=== PATIENT | male | born 1935 | race Caucasian/White ===

== ENCOUNTER 2018-06-08 14:06 | Inpatient (IN) ==
[2018-06-08] MEDS ORDERED: DEXTROSE 50% 50 ML VIAL IV PRN (16:21)
[2018-06-08] MEDS ORDERED: DEXTROSE 31 GM ORAL.SUSP PO PRN (16:21)
[2018-06-08] MEDS ORDERED: IPRATROPIUM/ALBUTEROL 3 ML AMPUL.NEB NEB PRN (16:21)
--- NOTE | 2018-06-08 17:09 | Internal Med History&Physical ---
Medical - H&P: [facility] Patient information: Note initiated : 06/08/18 at 5:04 pm Service Date, if different from initiated Date: [] Patient: Maria Isabel He a 82 y/o M admitted on for Fluid overload, acute kidney injury. Chief Complaint: [] History of present illness: Mr. He is a 82 year old M With chronic kidney disease stage IV obesity obstructive sleep apnea hypertension diabetes who who had been on 80 of Lasix twice daily. Stopped taking his diuretics about a week ago. Was seen by his film critic who recommended him come to the hospital for IV diuresis given his anasarca he refused at that time if no risks were explained to him. He did end up going up to his primary care facility [facility] he did get sounds like torsemide which he says "shut him down he did not urinate at all and then he was put on Lasix did not seem to have much response in the past couple days without the diuretic started urinating more per his he put out 1101-day 1100 the next day and 1400 yesterday. He did not want to come down yesterday because of he had some diarrhea which is resolved but agreed to come down today to be admitted for IV diuresis. The diarrhea is essentially resolved sounds like he has been dealing with intermittent constipation diarrhea this year, believes he may have IBS. He has some nausea he has got a chronic cough which is been dry for about 2 weeks he has some nasal congestion. But otherwise no chest pain or shortness of breath. He is very weak he typically is a cane but is been wheelchair-bound this past week. He states his dry weight is around 270 but because of the fluid accumulation he says he is around 300 pounds. He has increased swelling in his lower extremities to his scrotum and abdomen. Review of Systems: Edema to his legs scrotum and abdomen. Nausea. Diarrhea Essentially resolved denies headache/fever/chills/vomiting/chest or abdominal pain/cough/dyspnea/ constipation. Otherwise see above. Medical - H&P: [facility] Medical history: Medical History (Last Reviewed 06/02/18 @ 16:29 by Megha Martinez MD) Shortness of breath (Chronic) Fatigue (Chronic) Peripheral edema (Chronic) Chronic low back pain (Chronic) Arthritis of spine (Chronic) Obesity (Chronic) Hearing loss (Chronic) Depression (Chronic) Post-traumatic stress syndrome (Chronic) Anxiety (Chronic) Allergic rhinitis (Chronic) Gastroesophageal reflux disease (Chronic) Chronic kidney disease (Chronic) Edema (Chronic) Sleep apnea (Chronic) Orthopnea (Chronic) Heart block (Chronic) Hypertension (Chronic) Tobacco use (Chronic) CAD (coronary artery disease) (Chronic) Dysuria (Chronic) Chronic renal insufficiency (Chronic) Dyspnea (Chronic) Hydrocele (Chronic) BPH with urinary obstruction (Chronic) Diabetes mellitus type II, uncontrolled (Chronic) Chronic prostatitis (Chronic) Past Surgical History (Last Reviewed 06/02/18 @ 16:29 by Megha Martinez MD) History of hemorrhoidectomy (Chronic) History of prostate surgery (Chronic) History of shoulder surgery (Chronic) History of tonsillectomy and adenoidectomy (Chronic) History of transurethral resection of prostate (Chronic) No pertinent past surgical history (Chronic) S/P cardiac pacemaker procedure (Chronic) Status post shoulder surgery (Chronic) Family History (Last Reviewed 06/02/18 @ 16:29 by Megha Martinez MD) Other Diabetes Heart attack Hypertension No pertinent family history Social History (Last Updated 06/02/18 @ 16:38 by Megha Martinez MD) Patient quit smoking 1980 drinks alcohol rarely Ambulance with a cane but recently with walker Lives at home with his Functional capacity: uses cane/walker Medical - H&P: Meds Home Medications Medication Instructions Recorded Confirmed Type amlodipine 10 mg tablet 10 mg PO QDAY 05/19/17 06/02/18 History finasteride 5 mg tablet 5 mg PO QDAY 05/19/17 06/02/18 History Lubricating (PF) OPH OINT OPHTHALMIC 06/17/17 06/02/18 History albuterol sulfate 90 mcg/actuation 1 inh INHALATION Q6H 06/17/17 04/22/18 History breath activated powder inhaler calcium carbonate 500 mg calcium 500 mg PO Q4H PRN tab 06/17/17 06/02/18 History (1,250 mg) chewable tablet clobetasol TOPICAL BID PRN 06/17/17 06/02/18 History cyclobenzaprine 10 mg tablet 10 mg PO BID tab 06/17/17 06/02/18 History dextran 70-hypromellose eye drops 1 drp OPHTHALMIC 4-6XD PRN 06/17/17 06/02/18 History docusate sodium 100 mg capsule 100 mg PO TID cap 06/17/17 06/02/18 History glucose 4 gram chewable tablet 12 g PO ONCE PRN tab 06/17/17 06/02/18 History ketoconazole 2 % shampoo 1 applic TOPICAL .Q3W ml 06/17/17 06/02/18 History ofloxacin 0.3 % eye drops 1 drp OPHTHALMIC .QH PRN ml 06/17/17 06/02/18 History ranitidine 300 mg tablet 300 mg PO BID tab 06/17/17 06/02/18 History selenium sulfide 2.5 % shampoo 1 applic TOPICAL 3XW 06/17/17 06/02/18 History trazodone 100 mg tablet 50 mg PO QHS PRN 06/17/17 06/02/18 History fluticasone 50 mcg/actuation nasal 1 spray INTRANASAL QDAY 09/07/17 06/02/18 History spray,suspension oxycodone 5 mg tablet 5 mg PO Q4H PRN tab 09/07/17 06/02/18 History gabapentin 300 mg capsule 300 mg PO HS PRN cap 09/16/17 06/02/18 History tamsulosin 0.4 mg capsule 0.4 mg PO BID cap 09/16/17 06/02/18 History buspirone PO PRN 12/22/17 06/02/18 History bupropion HCl 100 mg tablet 100 mg PO BID PRN 04/22/18 06/02/18 History sodium bicarbonate 650 mg tablet 650 mg PO BID PRN tab 04/22/18 06/02/18 History Allergies Allergy/AdvReac Type Severity Reaction Status Date / Time NICOLAS Inhibitors Allergy Unknown Unknown Unverified 06/02/18 15:42 adhesive tape Allergy Unknown Unknown Unverified 06/02/18 15:42 atenolol Allergy Unknown Unknown Unverified 06/02/18 15:42 Cefaclor Allergy Unknown Unknown Unverified 06/02/18 15:42 clonidine Allergy Unknown Unknown Unverified 06/02/18 15:42 hydroxyzine Allergy Unknown Unknown Unverified 06/02/18 15:42 lidocaine Allergy Unknown unknown Verified 06/02/18 15:42 meperidine Allergy Unknown Unknown Unverified 06/02/18 15:42 omeprazole [From Prilosec] Allergy Unknown Unknown Unverified 06/02/18 15:42 Terazosin Allergy Unknown Unknown Unverified 06/02/18 15:42 Torsemide AdvReac Unknown unable to Verified 06/02/18 15:42 void adhesive tape Allergy Unknown Unknown Uncoded 06/02/18 15:42 animal insulin Allergy Unknown Unknown Uncoded 06/02/18 15:42 beta blockers Allergy Unknown Unknown Uncoded 06/02/18 15:42 CLASS: 24:04.02 - CALCIUM Allergy Unknown Unknown Uncoded 06/02/18 15:42 CHANNEL BLOCKING [employer]ENT Medical - H&P: Exam - Constitutional Exam: General: Alert, Awake, No acute Distress HEENT: Normocephalic atraumatic ,EOMI, CV: RRR, 1/6 SM, Pulm: Diminished bilateral bases, no wheezing/rhonchi/rales Abd: soft, nontender, +BS x4, obese Ext: no clubbing/cyanosis, 3-4+ lower extremity pitting edema. He has pitting edema up into the thighs all the way to the abdominal wall. And scrotal swelling. Neuro: Alert, no focal deficits, moves all extremities Skin: warm/dry Medical - H&P: A/P - Narrative A/P Narrative: A: *Anasarca: Medication noncompliance *Chronic kidney disease stage IV: Follows Dr. Garnett *Morbid obesity: *Diabetes: *Hypertension: *Depression/anxiety: *Chronic low back pain *BPH with a history of obstructive uropathy: P: -Case discussed with nephrology, will be following -Continue IV Bumex at this time -Strict I's and O's and daily weights -Continue home medications -Pending chemistry -Compression wraps lower extremities -Sliding scale insulin -Continue home medications -ppx: Heparin
[2018-06-08] MEDS ORDERED: BUMETANIDE 0.25 MG/ML VIAL IV ONE (17:15)
[2018-06-08] MEDS: INSULIN LISPRO 1 UNIT/0.01 ML UNIT SQ SCH ×3 (17:37→21:23)
[2018-06-08 19:12] LABS: ALT/SGPT 21 U/l (0-40); Albumin 2.6 gm/dL (3.2-5.2); Albumin/Globulin Ratio 0.7 (1.0-2.3); Alkaline Phosphatase 160 U/L (39-117); Bilirubin,Direct < 0.2 mg/dL (0.0-0.3); Blood Urea Nitrogen 54 mg/dl (8-23); Gamma Glutamyl Transpeptidase 37 U/L (8-61); Uric Acid 9.7 mg/dL (2.5-8.0)
[2018-06-08 19:51] LABS: Appearance,Urine TURBID; Bacteria,Urine MANY /hpf (0); Bilirubin,Urine NEG (NEG); Color,Urine YELLOW; Glucose,Urine (UA) 50 mg/dL (NEG); Leukocyte Esterase,Urine 500 /uL (NEG); Mucus,Urine FEW /hpf (0); Protein,Urine >=500 mg/dL (NEG); Specific Gravity,Urine 1.015 (1.000-1.035); Urine Amorphous Crystals FEW /hpf (0); Urine Blood 0.2 mg/dL (<0.03); Urine RBC 32 /hpf (0-1); Urine Squamous Epithelial Cell 0 /hpf (0-4); Urine WBC > 182 /hpf (0-4); Urobilinogen,Urine NEG (NEG)
[2018-06-08] MEDS: HEPARIN 5,000 UNIT/ML VIAL SQ SCH ×2 (20:46→21:22)
[2018-06-08] MEDS: FAMOTIDINE 20 MG TABLET PO SCH ×2 (20:46→21:23)
[2018-06-08] MEDS: TAMSULOSIN 0.4 MG CAPSULE PO SCH (21:15)
[2018-06-08] MEDS ORDERED: amLODIPine 5 MG TABLET ONE (21:20)
[2018-06-08] MEDS: 0.9 % SODIUM CHLORIDE 10 ML SYRINGE IV SCH (22:08)
[2018-06-09 05:32] LABS: Basophils # (Auto) 0 K/mcL (0.0-0.3); Basophils % (Auto) 0.1 % (0.0-2.0); Eosinophils # (Auto) 2.2 K/mcL (0.0-0.7); Eosinophils % (Auto) 15.4 % (0.0-7.0); Lymphocytes # (Auto) 0.7 K/mcL (1.5-4.8); Lymphocytes % (Auto) 4.7 % (15.5-49.0); Mean Cell Volume 91.4 fL (80.0-100.0); Mean Corpuscular HGB Conc 33.3 g/dL (31.0-36.0); Mean Corpuscular Hemoglobin 30.4 pg (26.0-34.0); Monocytes # (Auto) 0.8 K/mcL (0.1-0.9); Monocytes % (Auto) 5.8 % (1.0-12.0); Platelet Count 181 K/mcL (140-440)
[2018-06-09 06:00] LABS: ALT/SGPT 27 U/l (0-40); Albumin 2.5 gm/dL (3.2-5.2); Albumin/Globulin Ratio 0.7 (1.0-2.3); Alkaline Phosphatase 160 U/L (39-117); Bilirubin,Direct < 0.2 mg/dL (0.0-0.3); Blood Urea Nitrogen 60 mg/dl (8-23); Gamma Glutamyl Transpeptidase 36 U/L (8-61); Uric Acid 9.9 mg/dL (2.5-8.0)
--- NOTE | 2018-06-09 07:24 | Internal Med Progress Note ---
Medical - PN: Subj Patient information: Note initiated : 06/09/18 at 7:16 am Service Date, if different from initiated Date: [] Patient: Maria Isabel He 82 y/o M admitted on 06/08/18 for Fluid overload, acute kidney injury. Chief Complaint: [] Interval history: 82yoF with chronic kidney disease stage IV obesity obstructive sleep apnea hypertension diabetes who who had been on 80 of Lasix twice daily. Stopped taking his diuretics about a week ago. Was seen by his curator herbarium who recommended him come to the hospital for IV diuresis given his anasarca he refused at that time if no risks were explained to him. He did end up going up to his primary care facility [facility] he did get sounds like torsemide which he says "shut him down he did not urinate at all and then he was put on Lasix did not seem to have much response in the past couple days without the diuretic started urinating more per his he put out 1101-day 1100 the next day and 1400 yesterday. He did not want to come down yesterday because of he had some diarrhea which is resolved but agreed to come down today to be admitted for IV diuresis. The diarrhea is essentially resolved sounds like he has been dealing with intermittent constipation diarrhea this year, believes he may have IBS. He has some nausea he has got a chronic cough which is been dry for about 2 weeks he has some nasal congestion. But otherwise no chest pain or shortness of breath. He is very weak he typically is a cane but is been wheelchair-bound this past week. He states his dry weight is around 270 but because of the fluid accumulation he says he is around 300 pounds. He has increased swelling in his lower extremities to his scrotum and abdomen. 06/09 Slept poorly last night. Typically sleeps in a recliner for 15 years. With the bed last night felt was uncomfortable and developed some orthopnea with it. He has some chills and a little bit of nausea with breakfast, he has a mild cough with some clear sputum. No shortness of breath currently in his upright chair no chest pain abdominal pain. A lot of edema still in the legs to the abdomen. Intermittent diarrhea and constipation. - Constitutional Vitals: Vital Signs Temp Pulse Resp BP Pulse Ox 99.2 F H 71 24 H 130/64 90 06/09/18 04:00 06/08/18 23:38 06/09/18 04:00 06/09/18 04:00 06/09/18 04:00 Period Temp Pulse Resp BP Sys/Adkins Pulse Ox Last 24 Hr 98.1 F-99.2 F 71-86 20-26 130-155/64-90 90-93 Intake and Output 06/08/18 06/09/18 06/09/18 21:59 05:59 13:59 Intake Total 360 / 360 Output Total 120 / 120 325 / 325 Balance -120 / -120 35 / 35 Weight 139.706 kg 139.706 kg Intake & Output: Intake & Output 06/08/18 06/09/18 06/09/18 21:59 05:59 13:59 Intake Total 360 / 360 Output Total 120 / 120 325 / 325 Balance -120 / -120 35 / 35 Weight 139.706 kg 139.706 kg Intake: Oral 360 / 360 Output: Void Amount 120 / 120 325 / 325 Other: Meal Sandwhich Percent of Meal Consumed 100% Feeding Ability Independent Urine Appearance Cloudy Urine Color Dark Beatris Urine Odor Strong Stool Size Moderate Stool Color Brown Stool Consistency Liquid # Voids 1 2 # Bowel Movements 2 Exam: General: Alert, Awake, No acute Distress HEENT: Normocephalic atraumatic ,EOMI, CV: RRR, 1/6 SM, Pulm: Diminished bilateral bases, no wheezing/rhonchi/rales Abd: soft, nontender, +BS x4, obese Ext: no clubbing/cyanosis, 3-4+ lower extremity pitting edema. Pitting edema up into the thighs all the way to the abdominal wall. And scrotal swelling. Neuro: Alert, no focal deficits, moves all extremities Skin: warm/dry Medical - PN: Obj Da - Labs CBC & Chem 7: 06/09/18 03:40 06/09/18 03:40 Labs: Abnormal Lab Results 06/09/18 06/09/18 06/08/18 03:40 03:40 18:03 WBC 14.1 H RBC 3.90 L Hgb 11.9 L Hct 35.7 L RDW 15.0 H Lymph % (Auto) 4.7 L Eos % (Auto) 15.4 H Gran # 10.4 H Lymph # (Auto) 0.7 L Eos # (Auto) 2.2 H Chloride 111 H Carbon Dioxide 19 L BUN 60 H Creatinine 4.5 H Glucose 109 H Uric Acid 9.9 H Calcium 8.2 L Alkaline Phosphatase 160 H Albumin 2.5 L Albumin/Globulin Ratio 0.7 L Urine Protein >=500 A Urine Glucose (UA) 50 A Urine Occult Blood 0.2 A Ur Leukocyte Esterase 500 A Urine RBC 32 H Urine WBC > 182 H Amorphous Crystals Few A Urine Bacteria Many A 06/08/18 17:03 WBC RBC Hgb Hct RDW Lymph % (Auto) Eos % (Auto) Gran # Lymph # (Auto) Eos # (Auto) Chloride 113 H Carbon Dioxide 20 L BUN 54 H Creatinine 4.4 H Glucose 124 H Uric Acid 9.7 H Calcium 8.3 L Alkaline Phosphatase 160 H Albumin 2.6 L Albumin/Globulin Ratio 0.7 L Urine Protein Urine Glucose (UA) Urine Occult Blood Ur Leukocyte Esterase Urine RBC Urine WBC Amorphous Crystals Urine Bacteria Meds: Medications Albuterol/Ipratropium (Duoneb) 3 ml NEB Q4HRT PRN PRN Reason: Dyspnea Amlodipine Besylate (Norvasc) 10 mg PO QDAY [facility] Bumetanide (Bumex) 2 mg IV BID [facility] Dextrose (Dextrose 50%) 0 ml IV UD PRN PRN Reason: Hypoglycemia Diagnostic Test (Pha) (Accu-Chek) 1 each FS [facility] Last Admin: 06/08/18 20:40 Dose: 1 each Famotidine (Pepcid) 20 mg PO HS [facility] Last Admin: 06/08/18 21:23 Dose: Not Given Glucose (Insta-Glucose) 15 gm PO PRN PRN PRN Reason: Hypoglycemia Heparin Sodium (Porcine) (Heparin) 5,000 unit SQ Q12 [facility] Last Admin: 06/08/18 21:22 Dose: Not Given Insulin Human Lispro (Humalog) 0 unit SQ [facility]; Protocol Last Admin: 06/08/18 21:23 Dose: Not Given Sodium Chloride (Saline Flush) 10 ml IV Q8 [facility] Last Admin: 06/08/18 22:08 Dose: 10 ml Tamsulosin HCl (Flomax) 0.4 mg PO BID [facility] Last Admin: 06/08/18 21:15 Dose: 0.4 mg Medical - PN: A/P - Time Spent With Patient Total time spent is greater than 50% in coordination of care (as documented) at patient's floor/unit and/or counseling patient: - Narrative A/P Narrative: A: *Anasarca: Medication noncompliance *Chronic kidney disease stage IV: Follows Dr. Martinez *UTI poa with fever: *Morbid obesity: *Diabetes: *Hypertension: *Depression/anxiety: *Chronic low back pain *BPH with a history of obstructive uropathy: P: -Case discussed with nephrology who is following -lasix gtt per nephro, HD cath placement -bladder scan -Strict I's and O's and daily weights -Continue home medications -cipro unless cephalosporin allergy can be clarified -Compression wraps lower extremities -Sliding scale insulin -pt/ot -Continue home medications -ppx: Heparin Medical - PN: Qual - VTE Deep Vein Thrombosis/Pulmonary Embolism Present on Admission: No
[2018-06-09] MEDS: INSULIN LISPRO 1 UNIT/0.01 ML UNIT SQ SCH ×4 (07:41→21:06)
--- NOTE | 2018-06-09 08:05 | XRay Report ---
INDICATION: Fluid overload TECHNIQUE: AP chest x-ray, portable COMPARISON: None FINDINGS: Left-sided transvenous pacemaker with leads in appropriate positions for atrium and right ventricle. There is cardiomegaly. Pulmonary vascularity is mildly prominent. There are bibasilar pulmonary parenchymal infiltrates. Appearance is nonspecific. This may be due to pulmonary edema. Pneumonia is not excluded. There is probable pleural fluid. There is a focal density overlying the left side of the heart. Etiology is not certain. This may be artifactual and is probably extrathoracic. Routine PA and lateral chest x-ray is recommended when clinically appropriate. There is abnormality of the right clavicle and acromioclavicular joint. There is periosteal new bone formation as well as multiple bone fragments in the right acromioclavicular joint region. There may have been previous surgical resection or traumatic injury to the distal right clavicle. IMPRESSION: 1. Cardiomegaly 2. Bilateral, predominantly bibasilar infiltrates. Findings may be due to pulmonary edema but pneumonia is not excluded 3. Probable pleural fluid, especially on the left 4. PA and lateral chest x-ray is recommended when clinically appropriate Interpreted and Authenticated by: Julio Mccullough 06/09/18
[2018-06-09] MEDS ORDERED: METOLAZONE 2.5 MG TABLET PO ONE (08:54)
[2018-06-09] MEDS ORDERED: FUROSEMIDE 100 MG/10 ML VIAL IV ONE (08:56)
[2018-06-09] MEDS ORDERED: CIPROFLOXACIN 400 MG/200 ML BAG IV SCH (09:00)
[2018-06-09] MEDS ORDERED: FUROSEMIDE 250 MG in 0.9 % SODIUM CHLORIDE 225 ML IV SCH (09:00)
[2018-06-09] MEDS ORDERED: BUMETANIDE 0.25 MG/ML VIAL IV SCH (09:00)
[2018-06-09] MEDS: amLODIPine 10 MG TABLET PO SCH ×3 (09:45→21:42)
[2018-06-09] MEDS: HEPARIN 5,000 UNIT/ML VIAL SQ SCH ×2 (09:45→21:19)
[2018-06-09] MEDS: TAMSULOSIN 0.4 MG CAPSULE PO SCH ×3 (09:45→21:18)
[2018-06-09] MEDS: cefTRIAXone 1 GM VIAL IV SCH (10:42)
[2018-06-09] MEDS: 0.9 % SODIUM CHLORIDE 10 ML SYRINGE IV SCH ×3 (10:43→21:19)
[2018-06-09 11:14] LABS: Band Neutrophils % 3 % (0-10); Eosinophils % (Manual) 14 % (0-7); Lymphocytes % 6 % (15-49); Monocytes % (Manual) 4 % (1-12); Platelet Estimate NORMAL (NORMAL); RBC Morphology NORMAL (NORMAL); Segmented Neutrophils % 73 % (38-78)
--- NOTE | 2018-06-09 12:40 | Nephrology Consult Note ---
History of Present Illness - Reason for Consult Patient information: Note initiated : 06/09/18 at 12:36 pm Service Date, if different from initiated Date: [] Patient: Maria Isabel He 82 y/o M admitted on 06/08/18 for Fluid Overload, Acute Kidney Injury. Chief Complaint: [] Consult date: 06/09/18 chronic renal failure Requesting physician: Americo Degroot - Chief Complaint anasarca - History of Present Illness Patient is a 82 y/o white male with multiple medical issues who is admitted with anasarca Patient has been having worsening edema for the last few weeks with suboptimal response to oral diuretics, was recommended hospitalisation last week which he refused but was apparently getting IV furosemide as outpatient bid for the last few days, stopped 2 days ago as no significant improvement He denies SOB but is noted to be tachypneic and also has orthopnea he denies fever, chills but has fever here and UA with s/o UTI he has been having diarrhea as well for the last couple of weeks, c diff negative no CP, dizziness has chronic bladder outlet obstruction, has refused narayanan cath as has had difficulties with this in the past he has been reluctant to multiple interventions including earlier clinic visits , hospitalization even after explaining risk of respiratory failure, Review of Systems All systems PM: reviewed and no additional remarkable complaints except as stated (as in HPI) Past History Past medical history: DM type 2, uncontrolled HTN, uncontrolled with h/o intolerance to multiple medications CKD stage IV/V with nephrotic syndrome anemia of CKD secondary hyperparathyroidism CHF, s/p pacemaker placement, cad Sleep apnea on CPAP morbid obesity BPH with bladder outlet obstruction Past surgical history: History of prostate surgery Chronic History of shoulder surgery Chronic History of tonsillectomy and adenoidectomy Chronic History of transurethral resection of prostate Chronic History of hemorrhoidectomy Chronic S/P cardiac pacemaker procedure Chronic Status post shoulder surgery Past family history: DM type 2, HTN and cardiac issues in the family Past social history: lives with his in [place] no h/o alcohol or drug abuse, quit smoking in the past Medications and Allergies Home Medications Medication Instructions Recorded Confirmed Type amlodipine 10 mg tablet 10 mg PO QDAY 05/19/17 06/08/18 History finasteride 5 mg tablet 5 mg PO QDAY 05/19/17 06/02/18 History Lubricating (PF) OPH OINT OPHTHALMIC 06/17/17 06/02/18 History albuterol sulfate 90 mcg/actuation 1 inh INHALATION Q6H 06/17/17 04/22/18 History breath activated powder inhaler calcium carbonate 500 mg calcium 500 mg PO Q4H PRN tab 06/17/17 06/02/18 History (1,250 mg) chewable tablet clobetasol TOPICAL BID PRN 06/17/17 06/02/18 History cyclobenzaprine 10 mg tablet 10 mg PO BID tab 06/17/17 06/02/18 History dextran 70-hypromellose eye drops 1 drp OPHTHALMIC 4-6XD PRN 06/17/17 06/02/18 History docusate sodium 100 mg capsule 100 mg PO TID cap 06/17/17 06/02/18 History glucose 4 gram chewable tablet 12 g PO ONCE PRN tab 06/17/17 06/02/18 History ketoconazole 2 % shampoo 1 applic TOPICAL .Q3W ml 06/17/17 06/02/18 History ofloxacin 0.3 % eye drops 1 drp OPHTHALMIC .QH PRN ml 06/17/17 06/02/18 History ranitidine 300 mg tablet 300 mg PO BID tab 06/17/17 06/02/18 History selenium sulfide 2.5 % shampoo 1 applic TOPICAL 3XW 06/17/17 06/02/18 History trazodone 100 mg tablet 50 mg PO QHS PRN 06/17/17 06/02/18 History fluticasone 50 mcg/actuation nasal 1 spray INTRANASAL QDAY 09/07/17 06/02/18 History spray,suspension oxycodone 5 mg tablet 5 mg PO Q4H PRN tab 09/07/17 06/02/18 History gabapentin 300 mg capsule 300 mg PO HS PRN cap 09/16/17 06/02/18 History tamsulosin 0.4 mg capsule 0.4 mg PO BID cap 09/16/17 06/08/18 History buspirone PO PRN 12/22/17 06/02/18 History bupropion HCl 100 mg tablet 100 mg PO BID PRN 04/22/18 06/02/18 History sodium bicarbonate 650 mg tablet 650 mg PO BID PRN tab 04/22/18 06/02/18 History Allergies Allergy/AdvReac Type Severity Reaction Status Date / Time adhesive tape Allergy Mild Rash Verified 06/08/18 17:48 hydroxyzine Allergy Mild Rash Verified 06/09/18 09:53 omeprazole [From Prilosec] Allergy Mild Hallucinati Verified 06/09/18 09:53 ng clonidine Allergy Unknown Unknown Verified 06/09/18 09:53 Terazosin Allergy Unknown Unknown Verified 06/09/18 09:53 NICOLAS Inhibitors AdvReac Intermediate "Paradoxical Verified 06/09/18 09:53 Effect"/Blood pressure elevation Cefaclor AdvReac Intermediate "Unconcious/Passed Verified 06/09/18 09:53 Out" meperidine AdvReac Intermediate "Paradoxical Verified 06/09/18 09:53 Effect, Could feel everything" Beta-Blockers AdvReac Mild "Paradoxical Verified 06/09/18 09:53 (Beta-Adrenergic Bloc Effect"/Blood pressure elevation lidocaine AdvReac Mild Burning Verified 06/09/18 09:53 Torsemide AdvReac Mild "Unable to Verified 06/09/18 09:53 void/Shut's me off" Exam - Vital Signs Vital signs: Temp Pulse Resp BP Pulse Ox 101 F H 78 24 H 141/63 92 06/09/18 07:28 06/09/18 07:28 06/09/18 07:28 06/09/18 07:28 06/09/18 07:30 - General Appearance General appearance: appears started age, obese EENT: mucous membranes moist Neck: JVD Respiratory: wheezing, rales Cardiology: edema (has anasarca), regular rate, regular rhythm Gastrointestinal: no tenderness, no guarding Integumentary: warm and dry Neurologic: alert and oriented x3 Musculoskeletal: no erythema, no cyanosis Psychiatric: mood/affect appropriate Results - Lab Results 06/09/18 03:40 06/09/18 03:40 Most recent lab results Calcium 8.2 mg/dl (8.6-10.4) L 06/09/18 03:40 Phosphorus 3.3 mg/dL (2.7-4.5) 06/09/18 03:40 Magnesium 2.4 mg/dL (1.6-2.5) 06/09/18 03:40 Assessment and Plan (1) CKD (chronic kidney disease) stage V requiring chronic dialysis S.Creatinine is 4.5, egfr is 14ml/min per CKD EPI equation renal function near baseline but patient has significant fluid overload with probable pulmonary edema patient will be started on lasix gtt today, will given one dose of metolazone if he does not show significant response or he gets more SOB will arrange for urgent dialysis today We will have him for planned dialysis cath placement at [facility] tomorrow if case we do not see optimal response to IV diuretics, he agrees to pursue this, if his fluid status improves with stable/improving renal function we may hold off on this for now renal diet, fluid restriction monitor I/O avoid nephrotoxic medications dose meds to egfr Anasarca: as above lasix gtt, if fails initiation of HD fever, UTI, on antibiotics, culture pending has TRUONG, will obtain bladder US, if worse will request urology to follow all other issues managed by hospitalist, appreciate Dr Degroot's help will request Dr Herrera to follow the patient from tomorrow Status: Acute (2) Anasarca Status: Acute (3) UTI (urinary tract infection) Status: Acute
--- NOTE | 2018-06-09 14:51 | Ultrasound Report ---
CLINICAL INFORMATION: Renal failure. Fluid overload. History of obstructive uropathy TECHNIQUE: Grayscale and color flow Doppler spectral imaging COMPARISON: None. FINDINGS: Technically difficult examination due to patient's obesity and immobility. Examination was performed with the patient sitting in a chair. Right kidney measures 15.3 x 5.7 x 8.3 cm. Left kidney measures 12.7 x 5.6 x 6.4 cm. There are bilateral renal cysts. No solid mass. There is severe hydronephrosis bilaterally and enlarged renal pelves. No detectable calculi. No solid mass identified. Urinary bladder measures 2763 mL. Ureteral jets are not identified. There is no detectable bladder calculus or mass. Postvoid study was not performed. IMPRESSION: 1. Technically limited examination 2. Severe hydronephrosis 3. Distended urinary bladder Interpreted and Authenticated by: Julio Mccullough 06/09/18
[2018-06-09] MEDS ORDERED: buPROPion 100 MG TABLET PO PRN (18:10)
[2018-06-09] MEDS ORDERED: DEXTROSE PO PRN (18:10)
[2018-06-09] MEDS ORDERED: [UNRECOGNIZED DRUG - OTHER] PO PRN (18:10)
[2018-06-09] MEDS ORDERED: oxyCODONE HCL 5 MG TABLET PO PRN (18:10)
[2018-06-09] MEDS ORDERED: POLYVINYL ALCOHOL OPHTH DROPS 15ML BOTTLE OU PRN (18:10)
[2018-06-09] MEDS ORDERED: traZODone HCL 100 MG TABLET PO PRN (18:10)
[2018-06-09] MEDS ORDERED: SODIUM BICARBONATE 650 MG TABLET PO PRN (18:10)
[2018-06-09] MEDS ORDERED: CALCIUM CARBONATE 500 MG TAB.CHEW PO PRN (18:10)
[2018-06-09] MEDS: oxyCODONE HCL 5 MG TABLET PO PRN ×2 (18:24→22:14)
[2018-06-09] MEDS: ONDANSETRON 4 MG/2 ML VIAL IV PRN ×2 (18:25→22:15)
[2018-06-09] MEDS ORDERED: ALBUTEROL SULFATE INH PRN (19:15)
[2018-06-09 21:02] LABS: Blood Urea Nitrogen 64 mg/dl (8-23)
[2018-06-09] MEDS: DOCUSATE SODIUM 100 MG CAPSULE PO SCH (21:18)
[2018-06-09] MEDS: FAMOTIDINE 20 MG TABLET PO SCH (21:19)
[2018-06-09] MEDS: GABAPENTIN 300 MG CAPSULE PO SCH ×2 (21:19→21:36)
[2018-06-10] MEDS: oxyCODONE HCL 5 MG TABLET PO PRN ×3 (02:40→20:53)
[2018-06-10] MEDS: ONDANSETRON 4 MG/2 ML VIAL IV PRN ×3 (03:22→16:31)
[2018-06-10] MEDS: 0.9 % SODIUM CHLORIDE 10 ML SYRINGE IV SCH ×3 (05:35→20:54)
[2018-06-10 06:44] LABS: ALT/SGPT 30 U/l (0-40); Albumin 2.7 gm/dL (3.2-5.2); Albumin/Globulin Ratio 0.8 (1.0-2.3); Alkaline Phosphatase 167 U/L (39-117); Bilirubin,Direct < 0.2 mg/dL (0.0-0.3); Blood Urea Nitrogen 64 mg/dl (8-23); Gamma Glutamyl Transpeptidase 36 U/L (8-61); Uric Acid 9.3 mg/dL (2.5-8.0)
--- NOTE | 2018-06-10 07:02 | Consultation ---
DATE OF CONSULTATION: 06/09/2018 REQUESTING PHYSICIAN: Dr. Martinez. HISTORY OF PRESENT ILLNESS: The patient is an 82-year-old gentleman who I have seen in the past because of multiple medical problems. He does have BPH and states that no one can put a catheter in. There is a question of urethral stricture. He also has a hydrocele which he has had drained recently because of anasarca. It appears that they were only able to drain one side. 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 He canceled his appointment for biopsy and also a cystoscopy. He also has stage IV kidney disease, obstructive sleep apnea, hypertension, diabetes and obesity. He stopped taking diuretics a week ago and was admitted to the hospital for anasarca. He was put on Lasix and felt like he was not emptying his bladder. He had difficulty with this. Recently an ultrasound was done which showed a greater than 2500 mL bladder and bilateral hydronephrosis; this is a new finding. I have been asked to evaluate him for his urinary retention. PAST MEDICAL HISTORY: Significant for shortness of breath, chronic low back pain, arthritis, obesity, hearing loss, posttraumatic stress disorder, anxiety, edema, sleep apnea, renal insufficiency, hydrocele, BPH, and diabetes. PAST SURGICAL HISTORY: Hemorrhoidectomy, TURP in the past, plus a photovaporization of the prostate, shoulder surgery, pacemaker placement, and shoulder surgery. FAMILY HISTORY: Diabetes, heart disease, hypertension. SOCIAL HISTORY: Quit smoking in 1979, rarely drinks. CURRENT MEDICATIONS: Please see the hospital notes. ALLERGIES: NICOLAS INHIBITORS, ADHESIVE TAPE, ATENOLOL, CEFACLOR, CLONIDINE, HYDROXYZINE, LIDOCAINE, MEPERIDINE, OMEPRAZOLE, TERAZOSIN, FUROSEMIDE, BETA BLOCKERS. REVIEW OF SYSTEMS: CARDIAC: Shortness of breath. Positive coronary artery disease. EXTREMITIES: Positive edema to his legs, scrotum and abdomen. : Positive diarrhea. The rest of the review of systems is as per the hospitalist's dictation. PHYSICAL EXAMINATION: GENERAL: This is a patient in slight distress. VITAL SIGNS: As listed per nurse's notes. HEENT: Atraumatic, normocephalic. Extraocular movements are intact. NECK: Supple. Trachea is midline. HEART: Regular rhythm. LUNGS: Decreased sounds in the bases. ABDOMEN: Soft, obese. GENITOURINARY: Positive swelling of the scrotum which are wrapped in bandages. Testicles could not be palpated. Epididymi could not be palpated. Penis has 4+ edema; was able to reduce his foreskin and meatus at the end of his penis. Prostate is 40 grams; hard nodule in the middle. No extensions. Good sphincter tone. EXTREMITIES: Positive 4+ edema. NEUROLOGIC charcoal cranial nerves II-XII grossly intact. IMPRESSION: The patient with hydronephrosis secondary to urinary retention. He claims that no one can put a catheter in and because he is on Coumadin, I thought we could give this a try. I did place a filiform and follower and this went into his bladder without difficulty. I then tried a 14 [place] coude tip catheter and this was passed with some difficulty in obtaining clear urine. This was cloudy and currently he is on Rocephin. This is draining his bladder well. It did irrigate well. Therefore, I feel that we should leave the catheter in until he diureses and Nephrology and Internal Medicine will take care of this. For his increased PSA, this will need to be evaluated in the future. Also, he has a bladder mass by ultrasound in the past which will need to be addressed. His hydrocele is not causing him problems and this may be from edema. Again, after he recovers from his current condition this may be addressed. I have gone over this with the patient and his family, and they understand. I also talked to the hospitalist. I will follow up while in the hospital. JULIO CÉSAR:lou Job ID: [id number] Doc ID: [id number] Tadeo Pittman MD
--- NOTE | 2018-06-10 07:07 | Internal Med Progress Note ---
Medical - PN: Subj Patient information: Note initiated : 06/10/18 at 7:02 am Service Date, if different from initiated Date: [] Patient: Maria Isabel He 82 y/o M admitted on 06/08/18 for Fluid Overload, Acute Kidney Injury. Chief Complaint: [] Interval history: 82yoF with chronic kidney disease stage IV obesity obstructive sleep apnea hypertension diabetes who who had been on 80 of Lasix twice daily. Stopped taking his diuretics about a week ago. Was seen by his independent agent music education who recommended him come to the hospital for IV diuresis given his anasarca he refused at that time if no risks were explained to him. He did end up going up to his primary care facility [facility] he did get sounds like torsemide which he says "shut him down he did not urinate at all and then he was put on Lasix did not seem to have much response in the past couple days without the diuretic started urinating more per his he put out 1101-day 1100 the next day and 1400 yesterday. He did not want to come down yesterday because of he had some diarrhea which is resolved but agreed to come down today to be admitted for IV diuresis. The diarrhea is essentially resolved sounds like he has been dealing with intermittent constipation diarrhea this year, believes he may have IBS. He has some nausea he has got a chronic cough which is been dry for about 2 weeks he has some nasal congestion. But otherwise no chest pain or shortness of breath. He is very weak he typically is a cane but is been wheelchair-bound this past week. He states his dry weight is around 270 but because of the fluid accumulation he says he is around 300 pounds. He has increased swelling in his lower extremities to his scrotum and abdomen. 06/09 Slept poorly last night. Typically sleeps in a recliner for 15 years. With the bed last night felt was uncomfortable and developed some orthopnea with it. He has some chills and a little bit of nausea with breakfast, he has a mild cough with some clear sputum. No shortness of breath currently in his upright chair no chest pain abdominal pain. A lot of edema still in the legs to the abdomen. Intermittent diarrhea and constipation. 06/10 Little better last night. Does have some nausea and chills. Still very edematous, weak. Mild occasional cough. Review of Systems: denies headache/fever/vomiting/chest or abdominal pain/cough/diarrhea. Otherwise see above. - Constitutional Vitals: Vital Signs Temp Pulse Resp BP Pulse Ox 98.9 F 72 24 H 123/44 92 06/10/18 00:00 06/10/18 04:00 06/10/18 04:00 06/10/18 04:00 06/10/18 00:00 Period Temp Pulse Resp BP Sys/Adkins Pulse Ox Last 24 Hr 98.9 F-101 F 72-92 18-24 123-143/44-66 90-93 Intake and Output 06/09/18 06/10/18 06/10/18 21:59 05:59 13:59 Intake Total 198 / 198 560 / 560 Output Total 1600 / 1600 200 / 200 Balance -1402 / -1402 360 / 360 Weight 141.067 kg Intake & Output: Intake & Output 06/09/18 06/10/18 06/10/18 21:59 05:59 13:59 Intake Total 198 / 198 560 / 560 Output Total 1600 / 1600 200 / 200 Balance -1402 / -1402 360 / 360 Weight 141.067 kg Intake: IV 48 / 48 Lasix 250 mg In Sodium Chloride 48 / 48 0.9% 225 ml @ 10 MG/HR 10 mls/ hr IV Q24H [facility] Rx#:[id number] Oral 150 / 150 560 / 560 Output: Urine Catheter Amount 1200 / 1200 Void Amount 200 / 200 200 / 200 Emesis 200 / 200 Other: Meal Dinner Percent of Meal Consumed 25% Feeding Ability Assist with Tray Set Up Urine Appearance Cloudy Purulent Sediment Mucous Threads Small Blood Clots Uretheral (Wiseman) Cloudy Sediment Purulent Small Blood Clots Urine Color Straw Uretheral (Wiseman) Straw Urine Odor Foul Foul Uretheral (Wiseman) Foul Stool Size Moderate Stool Color Brown Stool Consistency Liquid Loose # Bowel Movements 1 # Emeses 2 Exam: General: Alert, Awake, No acute Distress HEENT: Normocephalic atraumatic ,EOMI, CV: RRR, 1/6 SM, Pulm: Diminished bilateral bases, bibase mild rales, no wheezing Abd: soft, nontender, +BS x4, obese Ext: no clubbing/cyanosis, 3-4+ lower extremity pitting edema. Pitting edema up into the thighs all the way to the abdominal wall. And scrotal swelling. Neuro: Alert, no focal deficits, moves all extremities Skin: warm/dry Medical - PN: Obj Da - Labs CBC & Chem 7: 06/10/18 04:06 06/10/18 04:06 Labs: Abnormal Lab Results 06/10/18 06/09/18 06/09/18 04:06 20:02 07:20 WBC RBC Hgb Hct RDW Lymph % (Auto) Eos % (Auto) Gran # Lymph # (Auto) Eos # (Auto) Lymphocytes % Eosinophils % (Manual) PT 17.5 H INR 1.4 H Chloride 109 H Carbon Dioxide 20 L 19 L BUN 64 H 64 H Creatinine 4.5 H 4.5 H Glucose 122 H 156 H Uric Acid 9.3 H Calcium 8.0 L 7.6 L Alkaline Phosphatase 167 H Lactate Dehydrogenase 286 H Albumin 2.7 L Albumin/Globulin Ratio 0.8 L Urine Protein Urine Glucose (UA) Urine Occult Blood Ur Leukocyte Esterase Urine RBC Urine WBC Amorphous Crystals Urine Bacteria 06/09/18 06/09/18 06/09/18 03:40 03:40 03:40 WBC 14.1 H RBC 3.90 L Hgb 11.9 L Hct 35.7 L RDW 15.0 H Lymph % (Auto) 4.7 L Eos % (Auto) 15.4 H Gran # 10.4 H Lymph # (Auto) 0.7 L Eos # (Auto) 2.2 H Lymphocytes % 6 L Eosinophils % (Manual) 14 H PT INR Chloride 111 H Carbon Dioxide 19 L BUN 60 H Creatinine 4.5 H Glucose 109 H Uric Acid 9.9 H Calcium 8.2 L Alkaline Phosphatase 160 H Lactate Dehydrogenase Albumin 2.5 L Albumin/Globulin Ratio 0.7 L Urine Protein Urine Glucose (UA) Urine Occult Blood Ur Leukocyte Esterase Urine RBC Urine WBC Amorphous Crystals Urine Bacteria 06/08/18 06/08/18 18:03 17:03 WBC RBC Hgb Hct RDW Lymph % (Auto) Eos % (Auto) Gran # Lymph # (Auto) Eos # (Auto) Lymphocytes % Eosinophils % (Manual) PT INR Chloride 113 H Carbon Dioxide 20 L BUN 54 H Creatinine 4.4 H Glucose 124 H Uric Acid 9.7 H Calcium 8.3 L Alkaline Phosphatase 160 H Lactate Dehydrogenase Albumin 2.6 L Albumin/Globulin Ratio 0.7 L Urine Protein >=500 A Urine Glucose (UA) 50 A Urine Occult Blood 0.2 A Ur Leukocyte Esterase 500 A Urine RBC 32 H Urine WBC > 182 H Amorphous Crystals Few A Urine Bacteria Many A Meds: Medications Albuterol/Ipratropium (Duoneb) 3 ml NEB Q4HRT PRN PRN Reason: Dyspnea Amlodipine Besylate (Norvasc) 10 mg PO HS [facility] Last Admin: 06/09/18 21:42 Dose: 10 mg Artificial Tears (Artificial Tears Ophth Drops) 1 gtt OU 4-6XD PRN PRN Reason: Dry Eye(s) Bupropion HCl (Wellbutrin) 100 mg PO BIDP PRN PRN Reason: ANXIETY/SEDATION Calcium Carbonate/Glycine (Tums) 500 mg PO Q4HP PRN PRN Reason: Indigestion Ceftriaxone Sodium (Rocephin) 1 gm IV Q24H [facility] Last Admin: 06/09/18 10:42 Dose: 1 gm Dextrose (Dextrose 50%) 0 ml IV UD PRN PRN Reason: Hypoglycemia Diagnostic Test (Pha) (Accu-Chek) 1 each FS ACHS [facility] Last Admin: 06/09/18 21:06 Dose: 1 each Docusate Sodium (Colace) 100 mg PO TID [facility] Last Admin: 06/09/18 21:18 Dose: Not Given Famotidine (Pepcid) 20 mg PO HS [facility] Last Admin: 06/09/18 21:19 Dose: 20 mg Finasteride (Proscar) 5 mg PO QDAY [facility] Gabapentin (Neurontin) 300 mg PO HS [facility] Last Admin: 06/09/18 21:36 Dose: Not Given Glucose (Insta-Glucose) 15 gm PO PRN PRN PRN Reason: Hypoglycemia Heparin Sodium (Porcine) (Heparin) 5,000 unit SQ Q12 [facility] Last Admin: 06/09/18 21:19 Dose: 5,000 unit Furosemide 250 mg/ Sodium (Chloride) 250 mls @ 10 mls/hr IV Q24H [facility]; Protocol Last Titration: 06/09/18 15:30 Dose: 0 mg/hr, 0 mls/hr Insulin Human Lispro (Humalog) 0 unit SQ ACHS [facility]; Protocol Last Admin: 06/09/18 21:06 Dose: Not Given Non-Formulary Medication (Fluticasone Propionate [Flonase]) 1 spray INTRANASAL QDAY [facility] Ondansetron HCl (Zofran) 4 mg IV Q4HP PRN PRN Reason: Nausea And Vomiting Last Admin: 06/10/18 03:22 Dose: 4 mg Oxycodone HCl (Roxicodone) 5 mg PO Q4HP PRN PRN Reason: pain Last Admin: 06/10/18 02:40 Dose: 5 mg Oxycodone HCl (Roxicodone) 5 mg PO Q4H PRN PRN Reason: PAIN LEVEL > 6 Albuterol Sulfate [ Proair Respiclick] 1 Inh) 1 dose INH Q6HP PRN PRN Reason: Shortness Of Breath Sodium Bicarbonate (Sodium Bicarbonate) 650 mg PO BID PRN PRN Reason: Indigestion Sodium Chloride (Saline Flush) 10 ml IV Q8 [facility] Last Admin: 06/10/18 05:35 Dose: 10 ml Tamsulosin HCl (Flomax) 0.4 mg PO BID [facility] Last Admin: 06/09/18 21:18 Dose: 0.4 mg Trazodone HCl (Desyrel) 50 mg PO HSP PRN PRN Reason: Insomnia Medical - PN: A/P - Time Spent With Patient Total time spent is greater than 50% in coordination of care (as documented) at patient's floor/unit and/or counseling patient: - Narrative A/P Narrative: A: *Anasarca: Medication noncompliance *Chronic kidney disease stage IV: Follows Dr. Martinez *UTI poa with fever (GNB): *Morbid obesity: *Diabetes: *Hypertension: *Depression/anxiety: *Chronic low back pain *BPH with a history of obstructive uropathy: *TRUONG w/hydronephrosis: s/p suprapubic cath placed by Toya (06/09) P: -Nephrology following -lasix gtt per nephro, ?DD cath placement today -Strict I's and O's and daily weights -Continue home medications -Rocephin -Compression wraps lower extremities -Sliding scale insulin -pt/ot -Continue home medications -ppx: Heparin Medical - PN: Qual - VTE Deep Vein Thrombosis/Pulmonary Embolism Present on Admission: No
[2018-06-10 07:11] LABS: Basophils # (Auto) 0 K/mcL (0.0-0.3); Basophils % (Auto) 0.1 % (0.0-2.0); Eosinophils # (Auto) 0.7 K/mcL (0.0-0.7); Eosinophils % (Auto) 4.7 % (0.0-7.0); Granulocytes % (Auto) 84.4 % (38.0-78.0); Lymphocytes % (Auto) 6.1 % (15.5-49.0); Mean Cell Volume 92.1 fL (80.0-100.0); Mean Corpuscular HGB Conc 33.2 g/dL (31.0-36.0); Mean Corpuscular Hemoglobin 30.6 pg (26.0-34.0); Monocytes # (Auto) 0.8 K/mcL (0.1-0.9); Monocytes % (Auto) 4.7 % (1.0-12.0); Platelet Count 159 K/mcL (140-440); RBC 3.89 M/mcL (4.50-5.90)
--- NOTE | 2018-06-10 07:41 | Nephrology Progress Note ---
Subjective Patient information: Note initiated : 06/10/18 at 7:38 am Maria Isabel He is an 82-year-old male with chronic kidney disease stage 4 admitted on 06/08/18. Chief Complaint: Fluid overload Principal diagnosis: Acute kidney injury on chronic kidney disease stage 4 Interval history: Worsening fluid overload Pertinent ROS: Edema Chills Shortness of breath Weakness Objective - Vital Signs Vital signs: Vital Signs Temp Pulse Resp BP BP Pulse Ox 06/10/18 04:00 72 24 H 123/44 06/10/18 00:00 98.9 F 78 23 H 131/54 92 06/09/18 20:00 99.5 F H 86 20 138/62 93 06/09/18 16:00 99.1 F H 92 H 18 138/66 90 06/09/18 15:00 100 F H 06/09/18 12:58 99.8 F H 22 143/66 93 Intake and Output 06/09/18 06/10/18 06/10/18 21:59 05:59 13:59 Intake Total 198 / 198 560 / 560 Output Total 1600 / 1600 200 / 200 Balance -1402 / -1402 360 / 360 Intake: IV 48 / 48 Lasix 250 mg In Sodium Chloride 48 / 48 0.9% 225 ml @ 10 MG/HR 10 mls/ hr IV Q24H [facility] Rx#:[id number] Oral 150 / 150 560 / 560 Output: Urine Catheter Amount 1200 / 1200 Void Amount 200 / 200 200 / 200 Emesis 200 / 200 Other: Meal Dinner Percent of Meal Consumed 25% Feeding Ability Assist with Tray Set Up Urine Appearance Cloudy Purulent Sediment Mucous Threads Small Blood Clots Uretheral (Wiseman) Cloudy Sediment Purulent Small Blood Clots Urine Color Straw Uretheral (Wiseman) Straw Urine Odor Foul Foul Uretheral (Wiseman) Foul Stool Size Moderate Stool Color Brown Stool Consistency Liquid Loose # Bowel Movements 1 # Emeses 2 Weight 311 lb Intake & Output: Intake & Output 06/09/18 06/10/18 06/10/18 21:59 05:59 13:59 Intake Total 198 / 198 560 / 560 Output Total 1600 / 1600 200 / 200 Balance -1402 / -1402 360 / 360 Weight 311 lb Intake: IV 48 / 48 Lasix 250 mg In Sodium Chloride 48 / 48 0.9% 225 ml @ 10 MG/HR 10 mls/ hr IV Q24H [facility] Rx#:[id number] Oral 150 / 150 560 / 560 Output: Urine Catheter Amount 1200 / 1200 Void Amount 200 / 200 200 / 200 Emesis 200 / 200 Other: Meal Dinner Percent of Meal Consumed 25% Feeding Ability Assist with Tray Set Up Urine Appearance Cloudy Purulent Sediment Mucous Threads Small Blood Clots Uretheral (Wiseman) Cloudy Sediment Purulent Small Blood Clots Urine Color Straw Uretheral (Wiseman) Straw Urine Odor Foul Foul Uretheral (Wiseman) Foul Stool Size Moderate Stool Color Brown Stool Consistency Liquid Loose # Bowel Movements 1 # Emeses 2 - General Appearance General appearance: chronically ill, fatigue EENT: mucous membranes moist Neck: supple Respiratory: rales Cardiology: edema Gastrointestinal: no tenderness Integumentary: warm and dry Neurologic: no focal deficit, alert and oriented x3 Musculoskeletal: no deformities Psychiatric: mood/affect appropriate, cooperative - Lab 06/10/18 04:06 06/10/18 04:06 Most recent lab results Calcium 8.0 mg/dl (8.6-10.4) L 06/10/18 04:06 Phosphorus 4.4 mg/dL (2.7-4.5) 06/10/18 04:06 Magnesium 2.5 mg/dL (1.6-2.5) 06/10/18 04:06 Assessment and Plan (1) Acute on chronic renal failure Maria Isabel He is an 82-year-old male with chronic kidney disease stage 4 admitted on 06/08/18. Acute kidney injury on chronic kidney disease stage 4, with metabolic acidosis and fluid overload associated with hydronephrosis secondary to urinary retention , present on arrival. Work up: Urinalysis on 06/08/18: Yellow, turbid, pH 5.0, SG 1.015, protein >500, occult blood 0.2, leukocyte esterase 500. Urine culture on 06/08/18: Gram negative bacillus. US Renal on 06/09/18: Severe hydronephrosis. Distended urinary bladder Treatment: Ceftriaxone 1 gram IV daily Progress: Urine output: 2200 ml reported in the past 24 hours. Creatinine 4.5 did not change in the past 24 hours. Metabolic acidosis. Fluid overload. Plan: Resume Furosemide 20 mg/hour Monitor for hemodialysis need. Avoid NSAIDs, nephrotoxic medications and IV contrast. Monitor BMP and urine output. Status: Acute Priority: High Qualifiers: Acute renal failure type: unspecified Chronic kidney disease stage: stage 4 (severe) Qualified Code(s): N17.9 - Acute kidney failure, unspecified; N18.4 - Chronic kidney disease, stage 4 (severe) (2) Fluid overload, unspecified Plan: Resume Furosemide 20 mg/hour Status: Acute Priority: High Qualifiers: Hypervolemia type: other Qualified Code(s): E87.79 - Other fluid overload (3) Metabolic acidosis Will hold Sodium Bicarbonate for now to avoid fluid retention Status: Acute Priority: Medium (4) Acute cystitis without hematuria Urine culture on 06/08/18: Gram negative bacillus Treatment: Ceftriaxone 1 gram IV daily Status: Acute Priority: Medium
[2018-06-10] MEDS ORDERED: FUROSEMIDE 250 MG in 0.9 % SODIUM CHLORIDE 225 ML IV SCH (09:00)
[2018-06-10] MEDS: FINASTERIDE 5 MG TABLET PO SCH (09:36)
[2018-06-10] MEDS: cefTRIAXone 1 GM VIAL IV SCH (09:36)
[2018-06-10] MEDS: HEPARIN 5,000 UNIT/ML VIAL SQ SCH ×3 (09:36→21:09)
[2018-06-10] MEDS: DOCUSATE SODIUM 100 MG CAPSULE PO SCH ×5 (09:37→21:08)
[2018-06-10] MEDS: TAMSULOSIN 0.4 MG CAPSULE PO SCH ×2 (09:37→21:06)
[2018-06-10] MEDS: INSULIN LISPRO 1 UNIT/0.01 ML UNIT SQ SCH ×4 (09:38→21:52)
[2018-06-10] MEDS: FLUTICASONE PROPIONATE SPRAY.NAS NS SCH (09:39)
[2018-06-10] MEDS ORDERED: METOLAZONE 2.5 MG TABLET PO ONE (15:29)
[2018-06-10] MEDS: amLODIPine 10 MG TABLET PO SCH (20:53)
[2018-06-10] MEDS: GABAPENTIN 300 MG CAPSULE PO SCH (20:54)
[2018-06-10] MEDS: FAMOTIDINE 20 MG TABLET PO SCH (20:54)
[2018-06-11] MEDS: ONDANSETRON 4 MG/2 ML VIAL IV PRN ×3 (00:51→13:33)
[2018-06-11] MEDS: oxyCODONE HCL 5 MG TABLET PO PRN ×2 (01:05→09:53)
[2018-06-11] MEDS ORDERED: FUROSEMIDE 100 MG/10 ML VIAL IV ONE (01:48)
[2018-06-11 05:17] LABS: Mean Cell Volume 93.6 fL (80.0-100.0); Mean Corpuscular HGB Conc 32.4 g/dL (31.0-36.0); Mean Corpuscular Hemoglobin 30.3 pg (26.0-34.0); Platelet Count 163 K/mcL (140-440); RBC 3.68 M/mcL (4.50-5.90); Red Cell Distribution Width 15.5 % (11.5-14.5)
[2018-06-11] MEDS: 0.9 % SODIUM CHLORIDE 10 ML SYRINGE IV SCH ×3 (05:38→20:38)
[2018-06-11 05:46] LABS: Blood Urea Nitrogen 70 mg/dl (8-23)
[2018-06-11 06:29] LABS: Eosinophils % (Manual) 10 % (0-7); Lymphocytes % 8 % (15-49); Monocytes % (Manual) 2 % (1-12); Myelocytes % 1 % (0-0); Platelet Estimate NORMAL (NORMAL); RBC Morphology NORMAL (NORMAL); Segmented Neutrophils % 79 % (38-78)
--- NOTE | 2018-06-11 06:54 | Nephrology Progress Note ---
Subjective Patient information: Note initiated : 06/11/18 at 6:52 am Maria Isabel He is an 82-year-old male with chronic kidney disease stage 4 admitted on 06/08/18. Chief Complaint: Fluid overload Principal diagnosis: Acute kidney injury on chronic kidney disease stage 4 Interval history: Worsening renal function and fluid overload Pertinent ROS: Edema Chills Shortness of breath Weakness Objective - Vital Signs Vital signs: Vital Signs Temp Pulse Pulse Resp BP BP Pulse Ox 06/11/18 06:44 99.4 F H 24 H 90 06/11/18 04:19 87 92 06/11/18 04:18 100.0 F H 84 133/63 91 06/11/18 00:35 99.4 F H 14 90 06/10/18 21:46 99.3 F H 83 94 06/10/18 20:18 82 97 06/10/18 19:54 82 117/52 94 06/10/18 16:32 90 129/74 91 06/10/18 16:19 79 124/52 93 06/10/18 16:00 99.3 F H 78 20 124/52 93 06/10/18 11:56 99.6 F H 78 20 115/51 94 06/10/18 11:51 76 115/51 93 06/10/18 08:35 126/68 06/10/18 08:00 102.3 F H 18 126/68 95 Intake and Output 06/10/18 06/11/18 06/11/18 21:59 05:59 13:59 Intake Total 660 / 660 730 / 730 Output Total 300 / 300 230 / 230 Balance 360 / 360 500 / 500 Intake: IV 250 / 250 Lasix 250 mg In Sodium Chloride 250 / 250 0.9% 225 ml @ 20 MG/HR 20 mls/ hr IV Q24H [facility] Rx#:[id number] Oral 660 / 660 GI Tube Flush 480 / 480 Output: Urine Catheter Amount 300 / 300 230 / 230 Other: Urine Appearance Cloudy Cloudy Sediment Uretheral (Wiseman) Cloudy Urine Color Dark Yellow Dark Yellow Straw Uretheral (Wiseman) Pale Weight 310 lb 14.4 oz Patient Weight 06/12/18 05:59 Weight 310 lb 14.4 oz Intake & Output: Intake & Output 06/10/18 06/11/18 06/11/18 21:59 05:59 13:59 Intake Total 660 / 660 730 / 730 Output Total 300 / 300 230 / 230 Balance 360 / 360 500 / 500 Weight 310 lb 14.4 oz Intake: IV 250 / 250 Lasix 250 mg In Sodium Chloride 250 / 250 0.9% 225 ml @ 20 MG/HR 20 mls/ hr IV Q24H [facility] Rx#:[id number] Oral 660 / 660 GI Tube Flush 480 / 480 Output: Urine Catheter Amount 300 / 300 230 / 230 Other: Urine Appearance Cloudy Cloudy Sediment Uretheral (Wiseman) Cloudy Urine Color Dark Yellow Dark Yellow Straw Uretheral (Wiseman) Pale - General Appearance General appearance: chronically ill, fatigue EENT: mucous membranes moist Neck: JVD Respiratory: rales Cardiology: edema Gastrointestinal: no tenderness Integumentary: chronic venous stasis Neurologic: no focal deficit, alert and oriented x3 Musculoskeletal: no deformities Psychiatric: mood/affect appropriate, cooperative - Lab 06/11/18 04:10 06/11/18 04:10 Most recent lab results Calcium 8.3 mg/dl (8.6-10.4) L 06/11/18 04:10 Phosphorus 4.4 mg/dL (2.7-4.5) 06/10/18 04:06 Magnesium 2.5 mg/dL (1.6-2.5) 06/10/18 04:06 Assessment and Plan (1) Acute on chronic renal failure Maria Isabel He is an 82-year-old male with chronic kidney disease stage 4 admitted on 06/08/18. Acute kidney injury on chronic kidney disease stage 4, with metabolic acidosis and fluid overload associated with hydronephrosis secondary to urinary retention , suspected progression to end stage renal disease, present on arrival. Work up: Urinalysis on 06/08/18: Yellow, turbid, pH 5.0, SG 1.015, protein >500, occult blood 0.2, leukocyte esterase 500. Urine culture on 06/08/18: Gram negative bacillus. US Renal on 06/09/18: Severe hydronephrosis. Distended urinary bladder Progress: Urine output: 930 ml reported in the past 24 hours. Serum creatinine increased from 4.5 to 5.3 in the past 24 hours. Metabolic acidosis. Hyperkalemia. Fluid overload. Discussion: Renal function and fluid overload worsening despite Wiseman catheter and diuresis attempt in the past 24 hours. Acute hemodialysis indicated for worsening uremia (eGFR down to 9), fluid overload, metabolic acidosis and hyperkalemia. I discussed risks and benefits of hemodialysis with the patient and his . Plan: Acute hemodialysis after hemodialysis catheter placement at [facility] today. NPO until procedure. Hemodialysis with Revaclear 300 dialyzer for 2.5 hours, QB/QD 250/500, dialysate (Potassium 2, Bicarbonate 36, Calcium 2.5, Sodium 140), UF target 2000 ml, Heparin 1000 unit bolus. Avoid NSAIDs, nephrotoxic medications and IV contrast. Monitor BMP and urine output. ADDENDUM at 16:40: Progress: Tunneled right IJ hemodialysis catheter placed at [facility] today. The patient seen and evaluated during hemodialysis. Next hemodialysis tomorrow. Status: Acute Priority: High Qualifiers: Acute renal failure type: unspecified Chronic kidney disease stage: stage 4 (severe) Qualified Code(s): N17.9 - Acute kidney failure, unspecified; N18.4 - Chronic kidney disease, stage 4 (severe) (2) Fluid overload, unspecified Plan: Resume Furosemide 20 mg/hour Status: Acute Priority: High Qualifiers: Hypervolemia type: other Qualified Code(s): E87.79 - Other fluid overload (3) Metabolic acidosis Will hold Sodium Bicarbonate for now to avoid fluid retention Status: Acute Priority: Medium (4) Acute cystitis without hematuria Urine culture on 06/08/18: Gram negative bacillus Treatment: Ceftriaxone 1 gram IV daily Status: Acute Priority: Medium
--- NOTE | 2018-06-11 07:08 | Internal Med Progress Note ---
Medical - PN: Subj Patient information: Note initiated : 06/11/18 at 7:04 am Service Date, if different from initiated Date: [] Patient: Maria Isabel He 82 y/o M admitted on 06/08/18 for Fluid Overload, Acute Kidney Injury. Chief Complaint: [] Interval history: 82yoF with chronic kidney disease stage IV obesity obstructive sleep apnea hypertension diabetes who who had been on 80 of Lasix twice daily. Stopped taking his diuretics about a week ago. Was seen by his major gifts officer who recommended him come to the hospital for IV diuresis given his anasarca he refused at that time if no risks were explained to him. He did end up going up to his primary care facility [facility] he did get sounds like torsemide which he says "shut him down he did not urinate at all and then he was put on Lasix did not seem to have much response in the past couple days without the diuretic started urinating more per his he put out 1101-day 1100 the next day and 1400 yesterday. He did not want to come down yesterday because of he had some diarrhea which is resolved but agreed to come down today to be admitted for IV diuresis. The diarrhea is essentially resolved sounds like he has been dealing with intermittent constipation diarrhea this year, believes he may have IBS. He has some nausea he has got a chronic cough which is been dry for about 2 weeks he has some nasal congestion. But otherwise no chest pain or shortness of breath. He is very weak he typically is a cane but is been wheelchair-bound this past week. He states his dry weight is around 270 but because of the fluid accumulation he says he is around 300 pounds. He has increased swelling in his lower extremities to his scrotum and abdomen. 06/09 Slept poorly last night. Typically sleeps in a recliner for 15 years. With the bed last night felt was uncomfortable and developed some orthopnea with it. He has some chills and a little bit of nausea with breakfast, he has a mild cough with some clear sputum. No shortness of breath currently in his upright chair no chest pain abdominal pain. A lot of edema still in the legs to the abdomen. Intermittent diarrhea and constipation. 06/10 Little better last night. Does have some nausea and chills. Still very edematous, weak. Mild occasional cough. 06/11 Occasional headache, some shortness of breath. Continued edema. Review of Systems: denies fever/chills/nausea/vomiting/chest or abdominal pain/cough/diarrhea. Otherwise see above. - Constitutional Vitals: Vital Signs Temp Pulse Resp BP Pulse Ox 99.4 F H 87 24 H 133/63 90 06/11/18 06:44 06/11/18 04:19 06/11/18 06:44 06/11/18 04:18 06/11/18 06:44 Period Temp Pulse Resp BP Sys/Adkins Pulse Ox Last 24 Hr 99.3 F-102.3 F 76-90 14-24 115-133/51-74 90-97 Intake and Output 06/10/18 06/11/18 06/11/18 21:59 05:59 13:59 Intake Total 660 / 660 730 / 730 Output Total 300 / 300 230 / 230 Balance 360 / 360 500 / 500 Weight 141.022 kg Patient Weight 06/12/18 05:59 Weight 141.022 kg Intake & Output: Intake & Output 06/10/18 06/11/18 06/11/18 21:59 05:59 13:59 Intake Total 660 / 660 730 / 730 Output Total 300 / 300 230 / 230 Balance 360 / 360 500 / 500 Weight 141.022 kg Intake: IV 250 / 250 Lasix 250 mg In Sodium Chloride 250 / 250 0.9% 225 ml @ 20 MG/HR 20 mls/ hr IV Q24H [facility] Rx#:[id number] Oral 660 / 660 GI Tube Flush 480 / 480 Output: Urine Catheter Amount 300 / 300 230 / 230 Other: Urine Appearance Cloudy Cloudy Sediment Uretheral (Wiseman) Cloudy Urine Color Dark Yellow Dark Yellow Straw Uretheral (Wiseman) Pale Exam: General: Alert, Awake, No acute Distress HEENT: Normocephalic atraumatic ,EOMI, CV: RRR, 1/6 SM, Pulm: Diminished bilateral bases, mild bibase rales, no wheezing Abd: soft, nontender, +BS x4, obese Ext: no clubbing/cyanosis, 3-4+ lower extremity pitting edema. Pitting edema up into the thighs all the way to the abdominal wall. And scrotal swelling. Neuro: Alert, no focal deficits, moves all extremities Skin: warm/dry Medical - PN: Obj Da - Labs CBC & Chem 7: 06/11/18 04:10 06/11/18 04:10 Labs: Abnormal Lab Results 06/11/18 06/11/18 06/10/18 04:10 04:10 04:06 WBC 13.5 H RBC 3.68 L Hgb 11.1 L Hct 34.5 L RDW 15.5 H MPV Gran % Lymph % (Auto) Eos % (Auto) Gran # Lymph # (Auto) Eos # (Auto) Seg Neutrophils % 79 H Lymphocytes % 8 L Eosinophils % (Manual) 10 H Myelocytes % 1 H PT INR Potassium 5.2 H Chloride Carbon Dioxide 20 L 20 L BUN 70 H 64 H Creatinine 5.3 H* 4.5 H Glucose 117 H 122 H Uric Acid 9.3 H Calcium 8.3 L 8.0 L Alkaline Phosphatase 167 H Lactate Dehydrogenase 286 H Albumin 2.7 L Albumin/Globulin Ratio 0.8 L Urine Protein Urine Glucose (UA) Urine Occult Blood Ur Leukocyte Esterase Urine RBC Urine WBC Amorphous Crystals Urine Bacteria 06/10/18 06/09/18 06/09/18 04:06 20:02 07:20 WBC 15.9 H RBC 3.89 L Hgb 11.9 L Hct 35.9 L RDW 15.0 H MPV 10.5 H Gran % 84.4 H Lymph % (Auto) 6.1 L Eos % (Auto) Gran # 13.5 H Lymph # (Auto) 1.0 L Eos # (Auto) Seg Neutrophils % Lymphocytes % Eosinophils % (Manual) Myelocytes % PT 17.5 H INR 1.4 H Potassium Chloride 109 H Carbon Dioxide 19 L BUN 64 H Creatinine 4.5 H Glucose 156 H Uric Acid Calcium 7.6 L Alkaline Phosphatase Lactate Dehydrogenase Albumin Albumin/Globulin Ratio Urine Protein Urine Glucose (UA) Urine Occult Blood Ur Leukocyte Esterase Urine RBC Urine WBC Amorphous Crystals Urine Bacteria 06/09/18 06/09/18 06/09/18 03:40 03:40 03:40 WBC 14.1 H RBC 3.90 L Hgb 11.9 L Hct 35.7 L RDW 15.0 H MPV Gran % Lymph % (Auto) 4.7 L Eos % (Auto) 15.4 H Gran # 10.4 H Lymph # (Auto) 0.7 L Eos # (Auto) 2.2 H Seg Neutrophils % Lymphocytes % 6 L Eosinophils % (Manual) 14 H Myelocytes % PT INR Potassium Chloride 111 H Carbon Dioxide 19 L BUN 60 H Creatinine 4.5 H Glucose 109 H Uric Acid 9.9 H Calcium 8.2 L Alkaline Phosphatase 160 H Lactate Dehydrogenase Albumin 2.5 L Albumin/Globulin Ratio 0.7 L Urine Protein Urine Glucose (UA) Urine Occult Blood Ur Leukocyte Esterase Urine RBC Urine WBC Amorphous Crystals Urine Bacteria 06/08/18 06/08/18 18:03 17:03 WBC RBC Hgb Hct RDW MPV Gran % Lymph % (Auto) Eos % (Auto) Gran # Lymph # (Auto) Eos # (Auto) Seg Neutrophils % Lymphocytes % Eosinophils % (Manual) Myelocytes % PT INR Potassium Chloride 113 H Carbon Dioxide 20 L BUN 54 H Creatinine 4.4 H Glucose 124 H Uric Acid 9.7 H Calcium 8.3 L Alkaline Phosphatase 160 H Lactate Dehydrogenase Albumin 2.6 L Albumin/Globulin Ratio 0.7 L Urine Protein >=500 A Urine Glucose (UA) 50 A Urine Occult Blood 0.2 A Ur Leukocyte Esterase 500 A Urine RBC 32 H Urine WBC > 182 H Amorphous Crystals Few A Urine Bacteria Many A Meds: Medications Albuterol/Ipratropium (Duoneb) 3 ml NEB Q4HRT PRN PRN Reason: Dyspnea Amlodipine Besylate (Norvasc) 10 mg PO [facility] Last Admin: 06/10/18 20:53 Dose: 10 mg Artificial Tears (Artificial Tears Ophth Drops) 1 gtt OU 4-6XD PRN PRN Reason: Dry Eye(s) Bupropion HCl (Wellbutrin) 100 mg PO BIDP PRN PRN Reason: ANXIETY/SEDATION Calcium Carbonate/Glycine (Tums) 500 mg PO Q4HP PRN PRN Reason: Indigestion Ceftriaxone Sodium (Rocephin) 1 gm IV Q24H [facility] Last Admin: 06/10/18 09:36 Dose: 1 gm Dextrose (Dextrose 50%) 0 ml IV UD PRN PRN Reason: Hypoglycemia Diagnostic Test (Pha) (Accu-Chek) 1 each FS ACHS [facility] Last Admin: 06/10/18 21:00 Dose: 1 each Docusate Sodium (Colace) 100 mg PO TID [facility] Last Admin: 06/10/18 21:08 Dose: Not Given Famotidine (Pepcid) 20 mg PO HS [facility] Last Admin: 06/10/18 20:54 Dose: 20 mg Finasteride (Proscar) 5 mg PO QDAY [facility] Last Admin: 06/10/18 09:36 Dose: 5 mg Fluticasone Propionate (Flonase) 1 spray NS DAILY [facility] Last Admin: 06/10/18 09:39 Dose: Not Given Gabapentin (Neurontin) 300 mg PO HS [facility] Last Admin: 06/10/18 20:54 Dose: 300 mg Glucose (Insta-Glucose) 15 gm PO PRN PRN PRN Reason: Hypoglycemia Insulin Human Lispro (Humalog) 0 unit SQ ACHS [facility]; Protocol Last Admin: 06/10/18 21:52 Dose: Not Given Ondansetron HCl (Zofran) 4 mg IV Q4HP PRN PRN Reason: Nausea And Vomiting Last Admin: 06/11/18 00:51 Dose: 4 mg Oxycodone HCl (Roxicodone) 5 mg PO Q4HP PRN PRN Reason: pain Last Admin: 06/11/18 01:05 Dose: 5 mg Oxycodone HCl (Roxicodone) 5 mg PO Q4H PRN PRN Reason: PAIN LEVEL > 6 Albuterol Sulfate [ Proair Respiclick] 1 Inh) 1 dose INH Q6HP PRN PRN Reason: Shortness Of Breath Sodium Bicarbonate (Sodium Bicarbonate) 650 mg PO BID PRN PRN Reason: Indigestion Sodium Chloride (Saline Flush) 10 ml IV Q8 [facility] Last Admin: 06/11/18 05:38 Dose: Not Given Tamsulosin HCl (Flomax) 0.4 mg PO BID [facility] Last Admin: 06/10/18 21:06 Dose: 0.4 mg Trazodone HCl (Desyrel) 50 mg PO HSP PRN PRN Reason: Insomnia Medical - PN: A/P - Time Spent With Patient Total time spent is greater than 50% in coordination of care (as documented) at patient's floor/unit and/or counseling patient: - Narrative A/P Narrative: A: *Anasarca: Medication noncompliance -unresponsive to lasix gtt *PAUL on CKD IV: Follows Dr. Martinez -Cr 5.3<4.5 *UTI poa with fever (E. coli): *Acute respiratory failure: 2/2 volume overload -on 2-3L NC *Morbid obesity: *Diabetes: *Hypertension: *Depression/anxiety: *Chronic low back pain *BPH with a history of obstructive uropathy: *TRUONG w/hydronephrosis: s/p suprapubic cath placed by Toya (06/09) P: -Nephrology following -lasix gtt per nephromichelle HD cath placement today and HD per Nephro -Strict I's and O's and daily weights -Continue home medications -Rocephin -Compression wraps lower extremities -Sliding scale insulin -pt/ot -Continue home medications -ppx: Heparin Medical - PN: Qual - VTE Deep Vein Thrombosis/Pulmonary Embolism Present on Admission: No
[2018-06-11] MEDS: FLUTICASONE PROPIONATE SPRAY.NAS NS SCH (08:37)
[2018-06-11] MEDS: FINASTERIDE 5 MG TABLET PO SCH (08:37)
[2018-06-11] MEDS: TAMSULOSIN 0.4 MG CAPSULE PO SCH ×2 (08:37→20:40)
[2018-06-11] MEDS: DOCUSATE SODIUM 100 MG CAPSULE PO SCH ×3 (08:37→20:38)
[2018-06-11] MEDS: cefTRIAXone 1 GM VIAL IV SCH (08:37)
[2018-06-11] MEDS: INSULIN LISPRO 1 UNIT/0.01 ML UNIT SQ SCH ×4 (09:14→20:37)
[2018-06-11] MEDS: amLODIPine 10 MG TABLET PO SCH (20:38)
[2018-06-11] MEDS: FAMOTIDINE 20 MG TABLET PO SCH (20:38)
[2018-06-11] MEDS: GABAPENTIN 300 MG CAPSULE PO SCH (20:40)
[2018-06-12] MEDS: oxyCODONE HCL 5 MG TABLET PO PRN ×2 (01:25→21:03)
[2018-06-12 06:15] LABS: Basophils # (Auto) 0 K/mcL (0.0-0.3); Basophils % (Auto) 0.2 % (0.0-2.0); Eosinophils # (Auto) 1.5 K/mcL (0.0-0.7); Eosinophils % (Auto) 15.9 % (0.0-7.0); Granulocytes % (Auto) 69.1 % (38.0-78.0); Lymphocytes # (Auto) 0.7 K/mcL (1.5-4.8); Lymphocytes % (Auto) 7.2 % (15.5-49.0); Mean Cell Volume 92.6 fL (80.0-100.0); Mean Corpuscular Hemoglobin 30.6 pg (26.0-34.0); Monocytes # (Auto) 0.7 K/mcL (0.1-0.9); Monocytes % (Auto) 7.6 % (1.0-12.0); Platelet Count 154 K/mcL (140-440); RBC 3.54 M/mcL (4.50-5.90); Red Cell Distribution Width 14.9 % (11.5-14.5)
[2018-06-12 06:17] LABS: Blood Urea Nitrogen 57 mg/dl (8-23)
--- NOTE | 2018-06-12 06:57 | Internal Med Progress Note ---
Medical - PN: Subj Patient information: Note initiated : 06/12/18 at 6:54 am Service Date, if different from initiated Date: [] Patient: Maria Isabel He 82 y/o M admitted on 06/08/18 for Fluid Overload, Acute Kidney Injury. Chief Complaint: [] Interval history: 82yoF with chronic kidney disease stage IV obesity obstructive sleep apnea hypertension diabetes who who had been on 80 of Lasix twice daily. Stopped taking his diuretics about a week ago. Was seen by his glass mould cleaner who recommended him come to the hospital for IV diuresis given his anasarca he refused at that time if no risks were explained to him. He did end up going up to his primary care facility [facility] he did get sounds like torsemide which he says "shut him down he did not urinate at all and then he was put on Lasix did not seem to have much response in the past couple days without the diuretic started urinating more per his he put out 1101-day 1100 the next day and 1400 yesterday. He did not want to come down yesterday because of he had some diarrhea which is resolved but agreed to come down today to be admitted for IV diuresis. The diarrhea is essentially resolved sounds like he has been dealing with intermittent constipation diarrhea this year, believes he may have IBS. He has some nausea he has got a chronic cough which is been dry for about 2 weeks he has some nasal congestion. But otherwise no chest pain or shortness of breath. He is very weak he typically is a cane but is been wheelchair-bound this past week. He states his dry weight is around 270 but because of the fluid accumulation he says he is around 300 pounds. He has increased swelling in his lower extremities to his scrotum and abdomen. 06/09 Slept poorly last night. Typically sleeps in a recliner for 15 years. With the bed last night felt was uncomfortable and developed some orthopnea with it. He has some chills and a little bit of nausea with breakfast, he has a mild cough with some clear sputum. No shortness of breath currently in his upright chair no chest pain abdominal pain. A lot of edema still in the legs to the abdomen. Intermittent diarrhea and constipation. 06/10 Little better last night. Does have some nausea and chills. Still very edematous, weak. Mild occasional cough. 06/11 Occasional headache, some shortness of breath. Continued edema. 06/12 CO2 retention last night on pt's as pt noncompliant with his own cpap, changed to our machine for auto-pressures but still was taking it off. HD yesterday with 2L's removed. no new complaints, pt will "to try" bipap for short period of time. no new complaints, denies dyspnea currently, occasional cough. Review of Systems: denies headache/fever/chills/vomiting/chest or abdominal pain/diarrhea. Otherwise see above. - Constitutional Vitals: Vital Signs Temp Pulse Resp BP Pulse Ox 99.8 F H 82 24 H 117/52 94 06/12/18 06:36 06/12/18 03:45 06/12/18 06:36 06/12/18 06:36 06/12/18 06:36 Period Temp Pulse Resp BP Sys/Adkins Pulse Ox Last 24 Hr 98.6 F-99.9 F 65-86 16-24 116-150/45-87 82-95 Intake and Output 06/11/18 06/12/18 06/12/18 21:59 05:59 13:59 Output Total 1999 120 / 120 Balance -2000 / -2000 -120 / -120 Weight 139.253 kg Intake & Output: Intake & Output 06/11/18 06/12/18 06/12/18 21:59 05:59 13:59 Output Total 1999 120 / 120 Balance -1999 / -2000 -120 / -120 Weight 139.253 kg Output: Urine Catheter Amount 120 / 120 Hemodialysis UF 1999 Other: Urine Appearance Uretheral (Wiseman) Sediment Urine Color Dark Yellow Uretheral ([facility]) Bright Yellow Exam: General: Alert, Awake, No acute Distress HEENT: EOMI, CV: RRR, 1/6 SM, Pulm: Diminished bilateral bases, minimal bibase rales, no wheezing Abd: soft, nontender, +BS x4, obese Ext: no clubbing/cyanosis, 3-4+ lower extremity pitting edema. Pitting edema up into the thighs all the way to the abdominal wall. And scrotal swelling. Neuro: Alert, no focal deficits, moves all extremities Skin: warm/dry Medical - PN: Obj Da - Labs CBC & Chem 7: 06/12/18 03:42 06/12/18 03:42 Labs: Abnormal Lab Results 06/12/18 06/12/18 06/11/18 03:42 03:42 10:03 WBC RBC 3.54 L Hgb 10.8 L Hct 32.7 L RDW 14.9 H MPV Gran % Lymph % (Auto) 7.2 L Eos % (Auto) 15.9 H Gran # Lymph # (Auto) 0.7 L Eos # (Auto) 1.5 H Seg Neutrophils % Lymphocytes % Eosinophils % (Manual) Myelocytes % POC PT 17.4 H PT POC INR 1.5 H INR Potassium Chloride Carbon Dioxide BUN 57 H Creatinine 5.0 H Glucose 110 H Uric Acid Calcium 7.8 L Alkaline Phosphatase Lactate Dehydrogenase Albumin Albumin/Globulin Ratio 06/11/18 06/11/18 06/10/18 04:10 04:10 04:06 WBC 13.5 H RBC 3.68 L Hgb 11.1 L Hct 34.5 L RDW 15.5 H MPV Gran % Lymph % (Auto) Eos % (Auto) Gran # Lymph # (Auto) Eos # (Auto) Seg Neutrophils % 79 H Lymphocytes % 8 L Eosinophils % (Manual) 10 H Myelocytes % 1 H POC PT PT POC INR INR Potassium 5.2 H Chloride Carbon Dioxide 20 L 20 L BUN 70 H 64 H Creatinine 5.3 H* 4.5 H Glucose 117 H 122 H Uric Acid 9.3 H Calcium 8.3 L 8.0 L Alkaline Phosphatase 167 H Lactate Dehydrogenase 286 H Albumin 2.7 L Albumin/Globulin Ratio 0.8 L 06/10/18 06/09/18 06/09/18 04:06 20:02 07:20 WBC 15.9 H RBC 3.89 L Hgb 11.9 L Hct 35.9 L RDW 15.0 H MPV 10.5 H Gran % 84.4 H Lymph % (Auto) 6.1 L Eos % (Auto) Gran # 13.5 H Lymph # (Auto) 1.0 L Eos # (Auto) Seg Neutrophils % Lymphocytes % Eosinophils % (Manual) Myelocytes % POC PT PT 17.5 H POC INR INR 1.4 H Potassium Chloride 109 H Carbon Dioxide 19 L BUN 64 H Creatinine 4.5 H Glucose 156 H Uric Acid Calcium 7.6 L Alkaline Phosphatase Lactate Dehydrogenase Albumin Albumin/Globulin Ratio 06/09/18 03:40 WBC RBC Hgb Hct RDW MPV Gran % Lymph % (Auto) Eos % (Auto) Gran # Lymph # (Auto) Eos # (Auto) Seg Neutrophils % Lymphocytes % 6 L Eosinophils % (Manual) 14 H Myelocytes % POC PT PT POC INR INR Potassium Chloride Carbon Dioxide BUN Creatinine Glucose Uric Acid Calcium Alkaline Phosphatase Lactate Dehydrogenase Albumin Albumin/Globulin Ratio Meds: Medications Albuterol/Ipratropium (Duoneb) 3 ml NEB Q4HRT PRN PRN Reason: Dyspnea Amlodipine Besylate (Norvasc) 10 mg PO HS [facility] Last Admin: 06/11/18 20:38 Dose: 10 mg Artificial Tears (Artificial Tears Ophth Drops) 1 gtt OU 4-6XD PRN PRN Reason: Dry Eye(s) Bupropion HCl (Wellbutrin) 100 mg PO BIDP PRN PRN Reason: ANXIETY/SEDATION Calcium Carbonate/Glycine (Tums) 500 mg PO Q4HP PRN PRN Reason: Indigestion Ceftriaxone Sodium (Rocephin) 1 gm IV Q24H [facility] Last Admin: 06/11/18 08:37 Dose: 1 gm Dextrose (Dextrose 50%) 0 ml IV UD PRN PRN Reason: Hypoglycemia Diagnostic Test (Pha) (Accu-Chek) 1 each FS [facility] Last Admin: 06/11/18 20:37 Dose: 1 each Docusate Sodium (Colace) 100 mg PO TID [facility] Last Admin: 06/11/18 20:38 Dose: 100 mg Famotidine (Pepcid) 20 mg PO [facility] Last Admin: 06/11/18 20:38 Dose: 20 mg Finasteride (Proscar) 5 mg PO QDAY [facility] Last Admin: 06/11/18 08:37 Dose: Not Given Fluticasone Propionate (Flonase) 1 spray NS DAILY [facility] Last Admin: 06/11/18 08:37 Dose: Not Given Gabapentin (Neurontin) 300 mg PO [facility] Last Admin: 06/11/18 20:40 Dose: Not Given Glucose (Insta-Glucose) 15 gm PO PRN PRN PRN Reason: Hypoglycemia Insulin Human Lispro (Humalog) 0 unit SQ [facility]; Protocol Last Admin: 06/11/18 20:37 Dose: Not Given Ondansetron HCl (Zofran) 4 mg IV Q4HP PRN PRN Reason: Nausea And Vomiting Last Admin: 06/11/18 13:33 Dose: 4 mg Oxycodone HCl (Roxicodone) 5 mg PO Q4HP PRN PRN Reason: pain Last Admin: 06/12/18 01:25 Dose: 5 mg Oxycodone HCl (Roxicodone) 5 mg PO Q4H PRN PRN Reason: PAIN LEVEL > 6 Albuterol Sulfate [ Proair Respiclick] 1 Inh) 1 dose INH Q6HP PRN PRN Reason: Shortness Of Breath Sodium Bicarbonate (Sodium Bicarbonate) 650 mg PO BID PRN PRN Reason: Indigestion Sodium Chloride (Saline Flush) 10 ml IV Q8 [facility] Last Admin: 06/11/18 20:38 Dose: 10 ml Tamsulosin HCl (Flomax) 0.4 mg PO BID [facility] Last Admin: 06/11/18 08:37 Dose: Not Given Trazodone HCl (Desyrel) 50 mg PO HSP PRN PRN Reason: Insomnia Medical - PN: A/P - Time Spent With Patient Total time spent is greater than 50% in coordination of care (as documented) at patient's floor/unit and/or counseling patient: - Narrative A/P Narrative: A: *Anasarca: Medication noncompliance -unresponsive to lasix gtt *PAUL on CKD IV: Follows Dr. Martinez -Cr 5.3<4.5 *UTI poa with fever (E. coli): leukocytosis resolved *Acute respiratory failure with hypercapnia: 2/2 volume overload, [place] with noncompliance of noninvasive ventilation device -on 2-3L NC *Morbid obesity: *Diabetes: *Hypertension: *Depression/anxiety: *Chronic low back pain *BPH with a history of obstructive uropathy: *TRUONG w/hydronephrosis: s/p suprapubic cath placed by Toya (06/09) P: -Nephrology following -HD per Nephro -Strict I's and O's and daily weights -Continue home medications -Rocephin -Compression wraps lower extremities -bipap this morning and f/u ABG -hold gabapentin -Sliding scale insulin -pt/ot -Continue home medications -ppx: Heparin Medical - PN: Qual - VTE Deep Vein Thrombosis/Pulmonary Embolism Present on Admission: No
[2018-06-12] MEDS: INSULIN LISPRO 1 UNIT/0.01 ML UNIT SQ SCH ×4 (08:05→20:41)
--- NOTE | 2018-06-12 08:21 | Nephrology Progress Note ---
Subjective Patient information: Note initiated : 06/12/18 at 8:19 am Maria Isabel He is an 82-year-old male with chronic kidney disease stage 4 admitted on 06/08/18. Chief Complaint: Fluid overload Principal diagnosis: Acute kidney injury on chronic kidney disease stage 4 Interval history: Tunneled right IJ hemodialysis catheter placed at [facility] on 06/11/18 First hemodialysis on 06/11/18 Pertinent ROS: Edema Shortness of breath Weakness Objective - Vital Signs Vital signs: Vital Signs Temp Pulse Pulse Resp BP BP Pulse Ox 06/12/18 07:40 70 18 94 06/12/18 06:36 99.8 F H 24 H 117/52 94 06/12/18 04:33 91 06/12/18 03:45 99.9 F H 82 20 120/48 82 L 06/12/18 01:26 98.6 F 79 120/68 89 L 06/11/18 21:00 98.8 F 06/11/18 20:58 86 16 139/64 95 06/11/18 20:18 80 94 06/11/18 20:17 98.8 F 81 16 119/45 94 06/11/18 17:17 99.5 F H 65 150/68 06/11/18 16:55 74 134/62 06/11/18 16:27 85 131/87 06/11/18 16:17 99.0 F 20 91 06/11/18 15:57 81 123/70 06/11/18 15:26 80 127/47 06/11/18 14:58 98.9 F 80 138/66 06/11/18 13:21 92 06/11/18 13:20 81 24 H 122/50 82 L 06/11/18 13:09 122/50 06/11/18 11:15 99.1 F H 20 116/58 92 06/11/18 11:13 116/58 Intake and Output 06/11/18 06/12/18 06/12/18 21:59 05:59 13:59 Intake Total 200 / 200 Output Total 1999 120 / 120 Balance -1999 / -1999 -120 / -120 200 / 200 Intake: Oral 200 / 200 Output: Urine Catheter Amount 120 / 120 Hemodialysis UF 1999 Other: Urine Appearance Uretheral ([facility]) Sediment Urine Color Dark Yellow Uretheral ([facility]) Bright Yellow Weight 307 lb Intake & Output: Intake & Output 06/11/18 06/12/18 06/12/18 21:59 05:59 13:59 Intake Total 200 / 200 Output Total 1999 120 / 120 Balance -1999 -120 / -120 200 / 200 Weight 307 lb Intake: Oral 200 / 200 Output: Urine Catheter Amount 120 / 120 Hemodialysis UF 1999 Other: Urine Appearance Uretheral (Wiseman) Sediment Urine Color Dark Yellow Uretheral ([facility]) Bright Yellow - General Appearance General appearance: chronically ill, fatigue EENT: mucous membranes dry Neck: supple Respiratory: rales Cardiology: edema Gastrointestinal: normoactive bowel sounds Integumentary: warm and dry Neurologic: no focal deficit, alert and oriented x3 Musculoskeletal: no deformities Psychiatric: mood/affect appropriate, cooperative - Lab 06/12/18 03:42 06/12/18 03:42 Most recent lab results Calcium 7.8 mg/dl (8.6-10.4) L 06/12/18 03:42 Phosphorus 4.4 mg/dL (2.7-4.5) 06/10/18 04:06 Magnesium 2.5 mg/dL (1.6-2.5) 06/10/18 04:06 Assessment and Plan (1) Acute on chronic renal failure Maria Isabel He is an 82-year-old male with chronic kidney disease stage 4 admitted on 06/08/18. Acute kidney injury on chronic kidney disease stage 4, with metabolic acidosis and fluid overload associated with hydronephrosis secondary to urinary retention , suspected progression to end stage renal disease, present on arrival. Work up: Urinalysis on 06/08/18: Yellow, turbid, pH 5.0, SG 1.015, protein >500, occult blood 0.2, leukocyte esterase 500 Urine culture on 06/08/18: E Coli US Renal on 06/09/18: Severe hydronephrosis. Distended urinary bladder Progress: Tunneled right IJ hemodialysis catheter placed at [facility] on 06/11/18 First hemodialysis on 06/11/18 with Revaclear 300 dialyzer for 2.5 hours, QB/ QD 250/500, dialysate (Potassium 2, Bicarbonate 36, Calcium 2.5, Sodium 140), UF 2000 ml, Heparin 1000 unit bolus Urine output: 670 ml reported in the past 24 hours Metabolic acidosis and hyperkalemia, resolved Fluid overload Plan: Second hemodialysis with Revaclear 300 dialyzer for 3 hours, QB/QD 250/ 500, dialysate (Potassium 3, Bicarbonate 33, Calcium 2.5, Sodium 140), UF target 3000 ml, Heparin 1000 unit bolus, 500 unit per hour Hemodialysis may be continued at [facility] outpatient unit after discharge 4 kg PYU tomorrow The patient seen and evaluated during hemodialysis at 10:15 Status: Acute Priority: High Qualifiers: Acute renal failure type: unspecified Chronic kidney disease stage: stage 4 (severe) Qualified Code(s): N17.9 - Acute kidney failure, unspecified; N18.4 - Chronic kidney disease, stage 4 (severe) (2) Fluid overload, unspecified Improved with hemodialysis ultrafiltration Status: Acute Priority: High Qualifiers: Hypervolemia type: other Qualified Code(s): E87.79 - Other fluid overload (3) Acute cystitis without hematuria Urine culture on 06/08/18: E Coli Treatment: Ceftriaxone 1 gram IV daily Status: Acute Priority: Medium
[2018-06-12] MEDS: 0.9 % SODIUM CHLORIDE 10 ML SYRINGE IV SCH ×3 (09:05→20:42)
[2018-06-12] MEDS: FLUTICASONE PROPIONATE SPRAY.NAS NS SCH (12:34)
[2018-06-12] MEDS: TAMSULOSIN 0.4 MG CAPSULE PO SCH ×2 (12:34→20:41)
[2018-06-12] MEDS: FINASTERIDE 5 MG TABLET PO SCH (12:34)
[2018-06-12] MEDS: cefTRIAXone 1 GM VIAL IV SCH (12:34)
[2018-06-12] MEDS: DOCUSATE SODIUM 100 MG CAPSULE PO SCH ×3 (12:34→20:41)
[2018-06-12] MEDS: FAMOTIDINE 20 MG TABLET PO SCH (20:41)
[2018-06-12] MEDS: amLODIPine 10 MG TABLET PO SCH (20:41)
--- NOTE | 2018-06-13 07:45 | Nephrology Progress Note ---
Subjective Patient information: Note initiated : 06/13/18 at 7:42 am Maria Isabel He is an 82-year-old male with chronic kidney disease stage 4 admitted on 06/08/18. Chief Complaint: Fluid overload Principal diagnosis: Acute kidney injury on chronic kidney disease stage 4 Interval history: Tunneled right IJ hemodialysis catheter placed at [facility] on 06/11/18 Hemodialysis on 06/11/18 and 06/12/18 Pertinent ROS: Edema Shortness of breath Weakness Objective - Vital Signs Vital signs: Vital Signs Temp Pulse Pulse Resp BP BP Pulse Ox 06/13/18 04:20 68 93 06/13/18 04:19 97.7 F 68 16 131/58 94 06/13/18 03:24 59 L 95 06/13/18 00:00 98.8 F 70 122/62 93 06/12/18 20:56 81 94 06/12/18 20:40 98.6 F 82 16 140/69 95 06/12/18 19:39 82 18 93 06/12/18 16:00 99.3 F H 79 22 160/90 95 06/12/18 12:04 100.5 F H 61 150/87 06/12/18 12:00 99.5 F H 83 80 20 138/59 177/91 97 06/12/18 11:37 62 151/122 06/12/18 11:05 68 137/60 06/12/18 10:36 68 150/61 06/12/18 10:06 74 148/63 06/12/18 09:35 59 L 149/73 06/12/18 09:09 100.2 F H 55 L 156/113 06/12/18 08:00 95 Intake and Output 06/12/18 06/13/18 06/13/18 21:59 05:59 13:59 Intake Total 100 / 100 Output Total 350 / 350 120 / 120 Balance -350 / -350 -20 / -20 Intake: GI Tube Flush 100 / 100 Output: Urine Catheter Amount 350 / 350 120 / 120 Other: Urine Appearance Sediment Sediment Uretheral (Wiseman) Sediment Urine Color Dark Beatris Dark Beatris Tea Colored Dark Red Uretheral (Wiseman) Dark Beatris Intake & Output: Intake & Output 06/12/18 06/13/18 06/13/18 21:59 05:59 13:59 Intake Total 100 / 100 Output Total 350 / 350 120 / 120 Balance -350 / -350 -20 / -20 Intake: GI Tube Flush 100 / 100 Output: Urine Catheter Amount 350 / 350 120 / 120 Other: Urine Appearance Sediment Sediment Uretheral (Wiseman) Sediment Urine Color Dark Beatris Dark Beatris Tea Colored Dark Red Uretheral (Wiseman) Dark Beatris - General Appearance General appearance: chronically ill, fatigue EENT: mucous membranes moist Neck: supple Respiratory: rales Cardiology: edema Gastrointestinal: no tenderness Integumentary: warm and dry Neurologic: no focal deficit, alert and oriented x3 Musculoskeletal: no deformities Psychiatric: mood/affect appropriate, cooperative - Lab 06/13/18 07:20 06/13/18 07:20 Most recent lab results Calcium TNP 06/13/18 04:15 Phosphorus TNP 06/13/18 04:15 Magnesium TNP 06/13/18 04:15 Assessment and Plan (1) Acute on chronic renal failure Maria Isabel He is an 82-year-old male with chronic kidney disease stage 4 admitted on 06/08/18. Acute kidney injury on chronic kidney disease stage 4, with metabolic acidosis and fluid overload associated with hydronephrosis secondary to urinary retention , suspected progression to end stage renal disease, present on arrival. Work up: Urinalysis on 06/08/18: Yellow, turbid, pH 5.0, SG 1.015, protein >500, occult blood 0.2, leukocyte esterase 500 Urine culture on 06/08/18: E Coli US Renal on 06/09/18: Severe hydronephrosis. Distended urinary bladder Progress: Tunneled right IJ hemodialysis catheter placed at [facility] on 06/11/18 First hemodialysis on 06/11/18 with 2000 ml UF First hemodialysis on 06/12/18 with 3000 ml UF Urine output: 470 ml reported in the past 24 hours Fluid overload Plan: Isolated ultrafiltration today for UF target of 4000 ml Amlodipine discontinued The patient seen and evaluated during hemodialysis at 9:55 Status: Acute Priority: High Qualifiers: Acute renal failure type: unspecified Chronic kidney disease stage: stage 4 (severe) Qualified Code(s): N17.9 - Acute kidney failure, unspecified; N18.4 - Chronic kidney disease, stage 4 (severe) (2) Fluid overload, unspecified Improving with hemodialysis ultrafiltration Status: Acute Priority: High Qualifiers: Hypervolemia type: other Qualified Code(s): E87.79 - Other fluid overload (3) Acute cystitis without hematuria Urine culture on 06/08/18: E Coli Treatment: Ceftriaxone 1 gram IV daily Status: Acute Priority: Medium
[2018-06-13] MEDS: INSULIN LISPRO 1 UNIT/0.01 ML UNIT SQ SCH ×4 (07:54→21:11)
[2018-06-13] MEDS: 0.9 % SODIUM CHLORIDE 10 ML SYRINGE IV SCH ×3 (07:54→21:52)
[2018-06-13] MEDS: FLUTICASONE PROPIONATE SPRAY.NAS NS SCH (07:55)
[2018-06-13] MEDS: DOCUSATE SODIUM 100 MG CAPSULE PO SCH ×3 (07:55→21:10)
[2018-06-13] MEDS: FINASTERIDE 5 MG TABLET PO SCH (07:55)
[2018-06-13] MEDS: cefTRIAXone 1 GM VIAL IV SCH (07:55)
[2018-06-13] MEDS: TAMSULOSIN 0.4 MG CAPSULE PO SCH ×2 (07:55→21:11)
[2018-06-13 08:02] LABS: Basophils # (Auto) 0 K/mcL (0.0-0.3); Basophils % (Auto) 0.4 % (0.0-2.0); Eosinophils # (Auto) 2.9 K/mcL (0.0-0.7); Eosinophils % (Auto) 30.5 % (0.0-7.0); Granulocytes % (Auto) 53.2 % (38.0-78.0); Lymphocytes # (Auto) 0.7 K/mcL (1.5-4.8); Lymphocytes % (Auto) 7.7 % (15.5-49.0); Mean Cell Volume 91.6 fL (80.0-100.0); Mean Corpuscular HGB Conc 33.8 g/dL (31.0-36.0); Mean Corpuscular Hemoglobin 30.9 pg (26.0-34.0); Monocytes # (Auto) 0.8 K/mcL (0.1-0.9); Monocytes % (Auto) 8.2 % (1.0-12.0); Platelet Count 154 K/mcL (140-440); RBC 3.58 M/mcL (4.50-5.90); Red Cell Distribution Width 14.4 % (11.5-14.5)
[2018-06-13 08:20] LABS: ALT/SGPT 16 U/l (0-40); Albumin 2.4 gm/dL (3.2-5.2); Albumin/Globulin Ratio 0.7 (1.0-2.3); Alkaline Phosphatase 131 U/L (39-117); Bilirubin,Direct < 0.2 mg/dL (0.0-0.3); Blood Urea Nitrogen 48 mg/dl (8-23); Gamma Glutamyl Transpeptidase 35 U/L (8-61); Uric Acid 6.5 mg/dL (2.5-8.0)
--- NOTE | 2018-06-13 08:31 | XRay Report ---
INDICATION: Fluid overload TECHNIQUE: AP chest x-ray, portable semiupright COMPARISON: Previous chest x-rays dated 06/09/2018 FINDINGS: Interval placement of large-caliber right central venous catheter with its tip at the junction of the right atrium and superior vena cava. No change in position of left transvenous pacemaker leads Moderate cardiomegaly, unchanged. Bilateral, bibasilar infiltrates with left basilar predominance. There is probable left pleural fluid. Findings may be due to fluid overload and pulmonary edema but pneumonia is possible. Clinical correlation and follow-up radiographs recommended. IMPRESSION: 1. Large caliber right central venous catheter as above 2. Bibasilar parenchymal infiltrates with left basilar predominance. Probable left pleural fluid. 3. No significant interval change since 06/09/2018 Interpreted and Authenticated by: Julio Mccullough 06/13/18
[2018-06-13] MEDS ORDERED: LEVOFLOXACIN 750 MG/150 ML BAG IV ONE (10:00)
--- NOTE | 2018-06-13 12:25 | Internal Med Progress Note ---
Medical - PN: Subj Patient information: Note initiated : 06/13/18 at 12:22 pm Service Date, if different from initiated Date: [] Patient: Maria Isabel He 82 y/o M admitted on 06/08/18 for Fluid Overload, Acute Kidney Injury. Chief Complaint: [] Interval history: 82yoF with chronic kidney disease stage IV obesity obstructive sleep apnea hypertension diabetes who who had been on 80 of Lasix twice daily. Stopped taking his diuretics about a week ago. 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 He did end up going up to his primary care facility [facility] he did get sounds like torsemide which he says "shut him down he did not urinate at all and then he was put on Lasix did not seem to have much response in the past couple days without the diuretic started urinating more per his he put out 1101-day 1100 the next day and 1400 yesterday. He did not want to come down yesterday because of he had some diarrhea which is resolved but agreed to come down today to be admitted for IV diuresis. The diarrhea is essentially resolved sounds like he has been dealing with intermittent constipation diarrhea this year, believes he may have IBS. He has some nausea he has got a chronic cough which is been dry for about 2 weeks he has some nasal congestion. But otherwise no chest pain or shortness of breath. He is very weak he typically is a cane but is been wheelchair-bound this past week. He states his dry weight is around 270 but because of the fluid accumulation he says he is around 300 pounds. He has increased swelling in his lower extremities to his scrotum and abdomen. 06/09 Slept poorly last night. Typically sleeps in a recliner for 15 years. With the bed last night felt was uncomfortable and developed some orthopnea with it. He has some chills and a little bit of nausea with breakfast, he has a mild cough with some clear sputum. No shortness of breath currently in his upright chair no chest pain abdominal pain. A lot of edema still in the legs to the abdomen. Intermittent diarrhea and constipation. 06/10 Little better last night. Does have some nausea and chills. Still very edematous, weak. Mild occasional cough. 06/11 Occasional headache, some shortness of breath. Continued edema. 06/12 CO2 retention last night on pt's as pt noncompliant with his own cpap, changed to our machine for auto-pressures but still was taking it off. HD yesterday with 2L's removed. 06/13 Pt seen examined, was confused yesterday after dialysis, but no other comp.marci ABG ant shows ph 7.35/48/72 Pt still on 2 L oxgyen, CXR shwos left pleural effusion, bibasilar infiltrates making dark urine, by bedside. denies any complaints this AM Pertinent ROS: Denies headache, dizziness Denies chest pain, palpitations Denies cough or shortness of breath Denies abdominal pain, nausea or vomiting. - Constitutional Vitals: Vital Signs Temp Pulse Resp BP Pulse Ox 98.9 F 60 18 177/85 95 06/13/18 08:00 06/13/18 11:59 06/13/18 08:00 06/13/18 11:59 06/13/18 08:00 Period Temp Pulse Resp BP Sys/Adkins Pulse Ox Last 24 Hr 97.7 F-99.3 F 59-82 16-22 122-177/58-98 93-95 Intake and Output 06/12/18 06/13/18 06/13/18 21:59 05:59 13:59 Intake Total 100 / 100 120 / 120 Output Total 350 / 350 120 / 120 Balance -350 / -350 -20 / -20 120 / 120 Intake & Output: Intake & Output 06/12/18 06/13/18 06/13/18 21:59 05:59 13:59 Intake Total 100 / 100 120 / 120 Output Total 350 / 350 120 / 120 Balance -350 / -350 -20 / -20 120 / 120 Intake: Oral 120 / 120 GI Tube Flush 100 / 100 Output: Urine Catheter Amount 350 / 350 120 / 120 Other: Meal Breakfast Percent of Meal Consumed 100% Urine Appearance Sediment Sediment Uretheral (Wiseman) Sediment Sediment Urine Color Dark Beatris Dark Beatris Tea Colored Dark Red Uretheral (Wiseman) Dark Beatris Straw Exam: Constitutional; Afebrile, cooperative, alert, not in distress. morbidly obese. Eyes- No icterus, , No periorbital swelling Ears- Ext ear normal, hard of hearing. Neck- Midline trachea, supple Respiratory system: Air Entry equal on both sides, bilateral crackles, upto mid lung CVS- Rate rhythm regular, S1,S2 heard, no gallop, no rub. 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 Edema marilyn ++++, scrotal edema Medical - PN: Obj Da - Labs CBC & Chem 7: 06/13/18 07:20 06/13/18 07:20 Labs: Abnormal Lab Results 06/13/18 06/13/18 06/12/18 07:20 07:20 03:42 WBC RBC 3.58 L Hgb 11.1 L Hct 32.8 L RDW Lymph % (Auto) 7.7 L Eos % (Auto) 30.5 H Lymph # (Auto) 0.7 L Eos # (Auto) 2.9 H Seg Neutrophils % Lymphocytes % Eosinophils % (Manual) Myelocytes % POC PT POC INR Potassium Carbon Dioxide BUN 48 H 57 H Creatinine 4.9 H 5.0 H Glucose 147 H 110 H Calcium 7.7 L 7.8 L Alkaline Phosphatase 131 H Albumin 2.4 L Albumin/Globulin Ratio 0.7 L 06/12/18 06/11/18 06/11/18 03:42 10:03 04:10 WBC RBC 3.54 L Hgb 10.8 L Hct 32.7 L RDW 14.9 H Lymph % (Auto) 7.2 L Eos % (Auto) 15.9 H Lymph # (Auto) 0.7 L Eos # (Auto) 1.5 H Seg Neutrophils % Lymphocytes % Eosinophils % (Manual) Myelocytes % POC PT 17.4 H POC INR 1.5 H Potassium 5.2 H Carbon Dioxide 20 L BUN 70 H Creatinine 5.3 H* Glucose 117 H Calcium 8.3 L Alkaline Phosphatase Albumin Albumin/Globulin Ratio 06/11/18 04:10 WBC 13.5 H RBC 3.68 L Hgb 11.1 L Hct 34.5 L RDW 15.5 H Lymph % (Auto) Eos % (Auto) Lymph # (Auto) Eos # (Auto) Seg Neutrophils % 79 H Lymphocytes % 8 L Eosinophils % (Manual) 10 H Myelocytes % 1 H POC PT POC INR Potassium Carbon Dioxide BUN Creatinine Glucose Calcium Alkaline Phosphatase Albumin Albumin/Globulin Ratio Meds: Medications Albuterol/Ipratropium (Duoneb) 3 ml NEB Q4HRT PRN PRN Reason: Dyspnea Artificial Tears (Artificial Tears Ophth Drops) 1 gtt OU 4-6XD PRN PRN Reason: Dry Eye(s) Bupropion HCl (Wellbutrin) 100 mg PO BIDP PRN PRN Reason: ANXIETY/SEDATION Calcium Carbonate/Glycine (Tums) 500 mg PO Q4HP PRN PRN Reason: Indigestion Dextrose (Dextrose 50%) 0 ml IV UD PRN PRN Reason: Hypoglycemia Diagnostic Test (Pha) (Accu-Chek) 1 each FS [facility] Last Admin: 06/13/18 07:54 Dose: 1 each Docusate Sodium (Colace) 100 mg PO TID [facility] Last Admin: 06/13/18 07:55 Dose: 100 mg Famotidine (Pepcid) 20 mg PO HS [facility] Last Admin: 06/12/18 20:41 Dose: 20 mg Finasteride (Proscar) 5 mg PO QDAY [facility] Last Admin: 06/13/18 07:55 Dose: 5 mg Fluticasone Propionate (Flonase) 1 spray NS DAILY [facility] Last Admin: 06/13/18 07:55 Dose: Not Given Glucose (Insta-Glucose) 15 gm PO PRN PRN PRN Reason: Hypoglycemia Levofloxacin (Levaquin) 500 mg in 100 mls @ 100 mls/hr IV Q48H [facility] Insulin Human Lispro (Humalog) 0 unit SQ [facility]; Protocol Last Admin: 06/13/18 07:54 Dose: Not Given Ondansetron HCl (Zofran) 4 mg IV Q4HP PRN PRN Reason: Nausea And Vomiting Last Admin: 06/11/18 13:33 Dose: 4 mg Oxycodone HCl (Roxicodone) 5 mg PO Q4HP PRN PRN Reason: pain Last Admin: 06/12/18 21:03 Dose: 5 mg Oxycodone HCl (Roxicodone) 5 mg PO Q4H PRN PRN Reason: PAIN LEVEL > 6 Albuterol Sulfate [ Proair Respiclick] 1 Inh) 1 dose INH Q6HP PRN PRN Reason: Shortness Of Breath Sodium Bicarbonate (Sodium Bicarbonate) 650 mg PO BID PRN PRN Reason: Indigestion Sodium Chloride (Saline Flush) 10 ml IV Q8 [facility] Last Admin: 06/13/18 07:54 Dose: 10 ml Tamsulosin HCl (Flomax) 0.4 mg PO BID [facility] Last Admin: 06/13/18 07:55 Dose: 0.4 mg Trazodone HCl (Desyrel) 50 mg PO HSP PRN PRN Reason: Insomnia Medical - PN: A/P - Time Spent With Patient Total time spent is greater than 50% in coordination of care (as documented) at patient's floor/unit and/or counseling patient: - Narrative A/P Narrative: A?p CKD/PAUL- with Generalized Anasarca- Non compliant with diuretic at home, unresponsive to lasix ggt On HD now, had some post HD confusion, but otherwise tolerating well, puff treatment for 4L planned today. PAUL on CKD- Creat elevated still, nephrology following Bladder outlet obstruction/ Hydronephrosis- S/p Wiseman placement, outpatient follow up with Urology [place]- notes home cpap does not work well, causing blisters? will refer to pulm as outpatient. Acute hypoxic/ Hypercapenic respiratory failuire- CPAP at night, oxygen via nasal canula to keep osat > 90 Health care associated pneumonia- X ray suggestive bibasilar pna, start on levofloxacin, check sputum cx. Urinary tract infection- D/C rocephin, ans levoflox should cover UTI pathogen DM/HTN/Chr bck pain/Depression/Anxiety- Stable, ssi insulin for glucose control Morbid obesty- out pt follow up. -ppx: Heparin Medical - PN: Qual - VTE Deep Vein Thrombosis/Pulmonary Embolism Present on Admission: No
[2018-06-13] MEDS: FAMOTIDINE 20 MG TABLET PO SCH (21:11)
[2018-06-13] MEDS: HEPARIN 5,000 UNIT/ML VIAL SQ SCH (21:11)
[2018-06-14] MEDS: 0.9 % SODIUM CHLORIDE 10 ML SYRINGE IV SCH ×3 (00:30→13:11)
[2018-06-14 05:34] LABS: Basophils # (Auto) 0 K/mcL (0.0-0.3); Basophils % (Auto) 0.2 % (0.0-2.0); Eosinophils # (Auto) 2.6 K/mcL (0.0-0.7); Eosinophils % (Auto) 29.6 % (0.0-7.0); Granulocytes % (Auto) 51.7 % (38.0-78.0); Lymphocytes # (Auto) 0.9 K/mcL (1.5-4.8); Lymphocytes % (Auto) 9.8 % (15.5-49.0); Mean Cell Volume 92.8 fL (80.0-100.0); Mean Corpuscular HGB Conc 33.2 g/dL (31.0-36.0); Mean Corpuscular Hemoglobin 30.8 pg (26.0-34.0); Monocytes # (Auto) 0.8 K/mcL (0.1-0.9); Monocytes % (Auto) 8.7 % (1.0-12.0); Platelet Count 146 K/mcL (140-440); RBC 3.52 M/mcL (4.50-5.90); Red Cell Distribution Width 14.4 % (11.5-14.5)
[2018-06-14 06:03] LABS: ALT/SGPT 18 U/l (0-40); Albumin 2.5 gm/dL (3.2-5.2); Albumin/Globulin Ratio 0.7 (1.0-2.3); Alkaline Phosphatase 130 U/L (39-117); Bilirubin,Direct < 0.2 mg/dL (0.0-0.3); Blood Urea Nitrogen 53 mg/dl (8-23); Gamma Glutamyl Transpeptidase 39 U/L (8-61)
--- NOTE | 2018-06-14 06:30 | Nephrology Progress Note ---
Subjective Patient information: Note initiated : 06/14/18 at 6:27 am Maria Isabel He is an 82-year-old male with chronic kidney disease stage 4 admitted on 06/08/18. Chief Complaint: Fluid overload Principal diagnosis: Acute kidney injury on chronic kidney disease stage 4 Pertinent ROS: No confusion No shortness of breath Wiseman catheter Scrotal edema Leg edema Objective - Vital Signs Vital signs: Vital Signs Temp Pulse Pulse Resp BP BP Pulse Ox 06/14/18 05:34 98 06/14/18 03:37 98.1 F 16 128/58 98 06/14/18 00:25 98 06/14/18 00:02 98.2 F 18 130/49 95 06/13/18 20:36 63 97 06/13/18 20:13 98.0 F 72 16 118/76 96 06/13/18 16:00 99.0 F 68 20 123/48 96 06/13/18 15:16 63 123/48 93 06/13/18 12:20 98.6 F 60 200/99 06/13/18 11:59 60 177/85 06/13/18 11:29 62 153/98 06/13/18 10:59 60 173/86 06/13/18 10:29 60 155/75 06/13/18 10:00 65 148/68 06/13/18 09:35 67 173/63 06/13/18 08:00 98.9 F 68 18 95 Intake and Output 06/13/18 06/14/18 06/14/18 21:59 05:59 13:59 Intake Total 600 / 600 60 / 60 Output Total 350 / 350 30 / 30 Balance 250 / 250 30 / 30 Intake: IV 150 / 150 Oral 450 / 450 GI Tube Flush 60 / 60 Output: Urine Catheter Amount 350 / 350 30 / 30 Other: Urine Appearance Sediment Sediment Uretheral (Wiseman) Sediment Urine Color Straw Dark Beatris Uretheral (Wiseman) Straw Tea Colored Weight 291 lb 1.6 oz Intake & Output: Intake & Output 06/13/18 06/14/18 06/14/18 21:59 05:59 13:59 Intake Total 600 / 600 60 / 60 Output Total 350 / 350 30 / 30 Balance 250 / 250 30 / 30 Weight 291 lb 1.6 oz Intake: IV 150 / 150 Oral 450 / 450 GI Tube Flush 60 / 60 Output: Urine Catheter Amount 350 / 350 30 / 30 Other: Urine Appearance Sediment Sediment Uretheral (Wiseman) Sediment Urine Color Straw Dark Beatris Uretheral (Wiseman) Straw Tea Colored - General Appearance General appearance: chronically ill, fatigue EENT: mucous membranes moist Neck: supple Respiratory: clear Cardiology: edema Gastrointestinal: no tenderness Integumentary: chronic venous stasis Neurologic: no focal deficit, alert and oriented x3 Musculoskeletal: no deformities Psychiatric: mood/affect appropriate, cooperative - Lab 06/14/18 03:40 06/14/18 03:40 Most recent lab results Calcium 7.8 mg/dl (8.6-10.4) L 06/14/18 03:40 Phosphorus 3.9 mg/dL (2.7-4.5) 06/14/18 03:40 Magnesium 2.2 mg/dL (1.6-2.5) 06/14/18 03:40 Assessment and Plan (1) Acute on chronic renal failure Maria Isabel He is an 82-year-old male with chronic kidney disease stage 4 admitted on 06/08/18. Acute kidney injury on chronic kidney disease stage 4, with initial metabolic acidosis and fluid overload associated with hydronephrosis secondary to urinary retention, present on arrival, now considered end stage renal disease. Work up: Urinalysis on 06/08/18: Yellow, turbid, pH 5.0, SG 1.015, protein >500, occult blood 0.2, leukocyte esterase 500 Urine culture on 06/08/18: E Coli US Renal on 06/09/18: Severe hydronephrosis. Distended urinary bladder Progress: Tunneled right IJ hemodialysis catheter placed at [facility] on 06/11/18 Daily hemodialysis since 06/11/18 for fluid overload. Urine output: 450 ml reported in the past 24 hours Plan: 1 hour hemodialysis and 2 hours Isolated ultrafiltration today for UF target of 4000 ml The patient seen and evaluated during hemodialysis at 10:05. Outpatient hemodialysis set up for ESRD requested. Status: Acute Priority: High Qualifiers: Acute renal failure type: unspecified Chronic kidney disease stage: stage 4 (severe) Qualified Code(s): N17.9 - Acute kidney failure, unspecified; N18.4 - Chronic kidney disease, stage 4 (severe) (2) Fluid overload, unspecified Improving with hemodialysis ultrafiltration Status: Acute Priority: High Qualifiers: Hypervolemia type: other Qualified Code(s): E87.79 - Other fluid overload
[2018-06-14] MEDS: INSULIN LISPRO 1 UNIT/0.01 ML UNIT SQ SCH ×4 (08:02→21:40)
[2018-06-14] MEDS: FLUTICASONE PROPIONATE SPRAY.NAS NS SCH (08:58)
[2018-06-14] MEDS: HEPARIN 5,000 UNIT/ML VIAL SQ SCH ×2 (08:59→21:41)
[2018-06-14] MEDS ORDERED: POLYETHYLENE GLYCOL 3350 17 GM PACKET PO SCH (09:00)
[2018-06-14] MEDS: FINASTERIDE 5 MG TABLET PO SCH ×2 (09:04→12:51)
[2018-06-14] MEDS: DOCUSATE SODIUM 100 MG CAPSULE PO SCH ×3 (09:04→21:41)
[2018-06-14] MEDS: TAMSULOSIN 0.4 MG CAPSULE PO SCH ×3 (09:04→21:42)
[2018-06-14] MEDS ORDERED: DEXTROSE 50% 50 ML VIAL IV PRN (10:29)
[2018-06-14] MEDS ORDERED: IPRATROPIUM/ALBUTEROL 3 ML AMPUL.NEB NEB PRN (10:29)
[2018-06-14] MEDS ORDERED: traZODone HCL 50 MG TABLET PO PRN (10:29)
[2018-06-14] MEDS ORDERED: CALCIUM CARBONATE 500 MG TAB.CHEW PO PRN (10:29)
[2018-06-14] MEDS ORDERED: oxyCODONE HCL 5 MG TABLET PO PRN (10:29)
[2018-06-14] MEDS ORDERED: DEXTROSE 31 GM ORAL.SUSP PO PRN (10:29)
[2018-06-14] MEDS ORDERED: POLYVINYL ALCOHOL OPHTH DROPS 15ML BOTTLE OU PRN (10:29)
[2018-06-14] MEDS ORDERED: SODIUM BICARBONATE 650 MG TABLET PO PRN (10:29)
[2018-06-14] MEDS ORDERED: buPROPion 100 MG TABLET PO PRN (10:29)
[2018-06-14] MEDS ORDERED: ALBUTEROL INH PRN (10:29)
--- NOTE | 2018-06-14 11:55 | Internal Med Progress Note ---
Medical - PN: Subj Patient information: Note initiated : 06/14/18 at 11:52 am Service Date, if different from initiated Date: [] Patient: Maria Isabel He 82 y/o M admitted on 06/08/18 for Fluid Overload, Acute Kidney Injury. Chief Complaint: [] Interval history: 82yoF with chronic kidney disease stage IV obesity obstructive sleep apnea hypertension diabetes who who had been on 80 of Lasix twice daily. Stopped taking his diuretics about a week ago. Was seen by his vision teacher who recommended him come to the hospital for IV diuresis given his anasarca he refused at that time if no risks were explained to him. He did end up going up to his primary care facility [facility] he did get sounds like torsemide which he says "shut him down he did not urinate at all and then he was put on Lasix did not seem to have much response in the past couple days without the diuretic started urinating more per his he put out 1101-day 1100 the next day and 1400 yesterday. He did not want to come down yesterday because of he had some diarrhea which is resolved but agreed to come down today to be admitted for IV diuresis. The diarrhea is essentially resolved sounds like he has been dealing with intermittent constipation diarrhea this year, believes he may have IBS. He has some nausea he has got a chronic cough which is been dry for about 2 weeks he has some nasal congestion. But otherwise no chest pain or shortness of breath. He is very weak he typically is a cane but is been wheelchair-bound this past week. He states his dry weight is around 270 but because of the fluid accumulation he says he is around 300 pounds. He has increased swelling in his lower extremities to his scrotum and abdomen. 06/09 Slept poorly last night. Typically sleeps in a recliner for 15 years. With the bed last night felt was uncomfortable and developed some orthopnea with it. He has some chills and a little bit of nausea with breakfast, he has a mild cough with some clear sputum. No shortness of breath currently in his upright chair no chest pain abdominal pain. A lot of edema still in the legs to the abdomen. Intermittent diarrhea and constipation. 06/10 Little better last night. Does have some nausea and chills. Still very edematous, weak. Mild occasional cough. 06/11 Occasional headache, some shortness of breath. Continued edema. 06/12 CO2 retention last night on pt's as pt noncompliant with his own cpap, changed to our machine for auto-pressures but still was taking it off. HD yesterday with 2L's removed. 06/13 Pt seen examined, was confused yesterday after dialysis, but no other comp.marci AB ant shows ph 7.35/48/72 Pt still on 2 L oxgyen, CXR shwos left pleural effusion, bibasilar infiltrates making dark urine, by bedside. denies any complaints this AM 06/14 pt seen examined, no acute ovenright events yesterday pm noted that he cannot hear after hd, discussed with Dr Herrera , unlikely HD is causing this, reviewed his ears, some wax in the left year, but no discharge, righ ear tm intact, dull appearing. he has marilyn chr hearing SNL loss, and uses hearing aids, advised to talk with his ENT doctor. he has chr tinnitus, but no acute worsening, no headaches. this am he is doing well, no new complaints HD planned today, xfer to med surg status. Pertinent ROS: Denies headache, dizziness Denies chest pain, palpitations Denies cough or shortness of breath Denies abdominal pain, nausea or vomiting. - Constitutional Vitals: Vital Signs Temp Pulse Resp BP Pulse Ox 98.3 F 60 20 115/46 91 06/14/18 11:48 06/14/18 11:29 06/14/18 11:48 06/14/18 11:48 06/14/18 11:48 Period Temp Pulse Resp BP Sys/Adkins Pulse Ox Last 24 Hr 98.0 F-99.0 F 50-88 16-20 105-200/46-99 89-98 Intake and Output 06/13/18 06/14/18 06/14/18 21:59 05:59 13:59 Intake Total 600 / 600 60 / 60 Output Total 350 / 350 30 / 30 Balance 250 / 250 30 / 30 Weight 291 lb 1.6 oz Intake & Output: Intake & Output 06/13/18 06/14/18 06/14/18 21:59 05:59 13:59 Intake Total 600 / 600 60 / 60 Output Total 350 / 350 30 / 30 Balance 250 / 250 30 / 30 Weight 291 lb 1.6 oz Intake: IV 150 / 150 Oral 450 / 450 GI Tube Flush 60 / 60 Output: Urine Catheter Amount 350 / 350 30 / 30 Other: Urine Appearance Sediment Sediment Clear Uretheral (Hanley) Sediment Clear Urine Color Straw Dark Beatris Light Beatris Uretheral (Hanley) Straw Light Beatris Tea Colored Exam: Constitutional; Afebrile, cooperative, alert, not in distress. Neck- Midline trachea, supple Respiratory system: Air Entry equal on both sides, bilbasilar crackles improved from yesterday CVS- Rate rhythm regular, S1,S2 heard, no gallop, no rub. Abdomen- Soft nontender abdomen, no organomegaly, no tenderness, no guarding or rigidity, FINISHER OPERATOR- AOOx3, moving all extremities, no gross focal deficit noted. significant edema ++++ Medical - PN: Obj Da - Labs CBC & Chem 7: 06/14/18 03:40 06/14/18 03:40 Labs: Abnormal Lab Results 06/14/18 06/14/18 06/13/18 03:40 03:40 07:20 RBC 3.52 L Hgb 10.8 L Hct 32.7 L RDW Lymph % (Auto) 9.8 L Eos % (Auto) 29.6 H Lymph # (Auto) 0.9 L Eos # (Auto) 2.6 H BUN 53 H 48 H Creatinine 5.5 H* 4.9 H Glucose 107 H 147 H Calcium 7.8 L 7.7 L Alkaline Phosphatase 130 H 131 H Albumin 2.5 L 2.4 L Albumin/Globulin Ratio 0.7 L 0.7 L 06/13/18 06/12/18 06/12/18 07:20 03:42 03:42 RBC 3.58 L 3.54 L Hgb 11.1 L 10.8 L Hct 32.8 L 32.7 L RDW 14.9 H Lymph % (Auto) 7.7 L 7.2 L Eos % (Auto) 30.5 H 15.9 H Lymph # (Auto) 0.7 L 0.7 L Eos # (Auto) 2.9 H 1.5 H BUN 57 H Creatinine 5.0 H Glucose 110 H Calcium 7.8 L Alkaline Phosphatase Albumin Albumin/Globulin Ratio Meds: Medications Albuterol/Ipratropium (Duoneb) 3 ml NEB Q4HRT PRN PRN Reason: Dyspnea Artificial Tears (Artificial Tears Ophth Drops) 1 gtt OU 4-6XD PRN PRN Reason: Dry Eye(s) Bupropion HCl (Wellbutrin) 100 mg PO BIDP PRN PRN Reason: ANXIETY/SEDATION Calcium Carbonate/Glycine (Tums) 500 mg PO Q4HP PRN PRN Reason: Indigestion Dextrose (Dextrose 50%) 0 ml IV UD PRN PRN Reason: Hypoglycemia Diagnostic Test (Pha) (Accu-Chek) 1 each FS ACHS MARCOS Last Admin: 06/14/18 11:27 Dose: 1 each Docusate Sodium (Colace) 100 mg PO TID M[facility] Famotidine (Pepcid) 20 mg PO HS [facility] Finasteride (Proscar) 5 mg PO QDAY [facility] Fluticasone Propionate (Flonase) 1 spray NS DAILY [facility] Glucose (Insta-Glucose) 15 gm PO PRN PRN PRN Reason: Hypoglycemia Heparin Sodium (Porcine) (Heparin) 5,000 unit SQ Q12 [facility] Levofloxacin (Levaquin) 500 mg in 100 mls @ 100 mls/hr IV Q48H [facility] Insulin Human Lispro (Humalog) 0 unit SQ ACHS [facility]; Protocol Ondansetron HCl (Zofran) 4 mg IV Q4HP PRN PRN Reason: Nausea And Vomiting Oxycodone HCl (Roxicodone) 5 mg PO Q4H PRN PRN Reason: PAIN LEVEL > 6 Albuterol [Proair (Respiclick] Inhaler) 1 dose INH Q6HP PRN PRN Reason: Shortness Of Breath Polyethylene Glycol (Miralax) 17 gm PO DAILY [facility] Sodium Bicarbonate (Sodium Bicarbonate) 650 mg PO BID PRN PRN Reason: Indigestion Sodium Chloride (Saline Flush) 10 ml IV Q8 [facility] Tamsulosin HCl (Flomax) 0.4 mg PO BID [facility] Trazodone HCl (Desyrel) 50 mg PO HSP PRN PRN Reason: Insomnia Medical - PN: A/P - Time Spent With Patient Total time spent is greater than 50% in coordination of care (as documented) at patient's floor/unit and/or counseling patient: - Narrative A/P Narrative: A/P CKD/PAUL- with Generalized Anasarca- Non compliant with diuretic at home, unresponsive to lasix ggt On HD now, had some post HD confusion, but otherwise tolerating well, puff treatment for 4L planned today. HD session today, neg 9L since admission now. Plann for daily HD SNL Loss- chr issue, worse after HD? advised to check hearing aids, possible outpatient referral to ENT outpatient PAUL on CKD- Creat elevated still, nephrology following Bladder outlet obstruction/ Hydronephrosis- S/p Hanley placement, outpatient follow up with Urology [place]- notes home cpap does not work well, causing blisters? will refer to pulm as outpatient. Acute hypoxic/ Hypercapenic respiratory failuire- CPAP at night, oxygen via nasal canula to keep osat > 90 Health care associated pneumonia- X ray suggestive bibasilar pna, start on levofloxacin, check sputum cx. Urinary tract infection- D/C rocephin, ans levoflox should cover UTI pathogen DM/HTN/Chr bck pain/Depression/Anxiety- Stable, ssi insulin for glucose control Morbid obesty- out pt follow up. -ppx: Heparin Xfer to med surg status. Medical - PN: Qual - VTE Deep Vein Thrombosis/Pulmonary Embolism Present on Admission: No
[2018-06-14] MEDS: POLYETHYLENE GLYCOL 3350 17 GM PACKET PO SCH (12:59)
[2018-06-14] MEDS: oxyCODONE HCL 5 MG TABLET PO PRN ×2 (15:03→21:41)
[2018-06-14] MEDS: ONDANSETRON 4 MG/2 ML VIAL IV PRN (16:44)
[2018-06-14] MEDS: FAMOTIDINE 20 MG TABLET PO SCH (21:42)
[2018-06-15] MEDS: ONDANSETRON 4 MG/2 ML VIAL IV PRN (03:10)
[2018-06-15] MEDS: 0.9 % SODIUM CHLORIDE 10 ML SYRINGE IV SCH ×3 (04:40→22:07)
[2018-06-15 05:53] LABS: Basophils # (Auto) 0 K/mcL (0.0-0.3); Basophils % (Auto) 0.4 % (0.0-2.0); Eosinophils # (Auto) 2.9 K/mcL (0.0-0.7); Granulocytes % (Auto) 50.5 % (38.0-78.0); Lymphocytes # (Auto) 0.8 K/mcL (1.5-4.8); Lymphocytes % (Auto) 8.4 % (15.5-49.0); Mean Cell Volume 91.9 fL (80.0-100.0); Mean Corpuscular HGB Conc 33.5 g/dL (31.0-36.0); Mean Corpuscular Hemoglobin 30.7 pg (26.0-34.0); Monocytes # (Auto) 0.8 K/mcL (0.1-0.9); Monocytes % (Auto) 8.7 % (1.0-12.0); Platelet Count 149 K/mcL (140-440); RBC 3.47 M/mcL (4.50-5.90); Red Cell Distribution Width 14.4 % (11.5-14.5)
--- NOTE | 2018-06-15 06:43 | Nephrology Progress Note ---
Subjective Patient information: Note initiated : 06/15/18 at 6:41 am Maria Isabel He is an 82-year-old male with chronic kidney disease stage 4 admitted on 06/08/18. Chief Complaint: Fluid overload Principal diagnosis: End stage renal disease requiring chronic hemodialysis initiation Interval history: Chronic hemodialysis initiation after tunneled right IJ hemodialysis catheter placement at [facility] on 06/11/18 Pertinent ROS: No confusion No shortness of breath Wiseman catheter Scrotal edema Leg edema Objective - Vital Signs Vital signs: Vital Signs Temp Pulse Pulse Resp BP BP BP 06/15/18 03:17 06/15/18 03:16 98.8 F 70 20 154/76 06/15/18 00:30 98.5 F 69 20 148/69 06/14/18 20:00 97.8 F 74 20 150/71 06/14/18 16:00 98.3 F 18 147/76 06/14/18 12:31 98.0 F 60 148/72 06/14/18 11:59 49 L 111/48 06/14/18 11:48 98.3 F 20 115/46 06/14/18 11:29 60 115/46 06/14/18 11:05 60 134/59 06/14/18 10:33 67 105/73 06/14/18 09:58 50 L 141/46 06/14/18 09:30 98.9 F 88 142/68 06/14/18 08:03 98.0 F 06/14/18 07:27 Pulse Ox 06/15/18 03:17 93 06/15/18 03:16 87 L 06/15/18 00:30 92 06/14/18 20:00 91 06/14/18 16:00 90 06/14/18 12:31 06/14/18 11:59 06/14/18 11:48 91 06/14/18 11:29 06/14/18 11:05 06/14/18 10:33 06/14/18 09:58 06/14/18 09:30 06/14/18 08:03 89 L 06/14/18 07:27 92 Intake and Output 06/14/18 06/15/18 06/15/18 21:59 05:59 13:59 Intake Total 240 / 240 Output Total 525 / 525 Balance 240 / 240 -525 / -525 Intake: Oral 240 / 240 Output: Urine Catheter Amount 525 / 525 Other: Meal Dinner Percent of Meal Consumed 100% Feeding Ability Assist with Tray Set Up Urine Appearance Clear Uretheral (Wiseman) Clear Urine Color Dark Yellow Uretheral (Wiseman) Tea Colored Weight 291 lb 1.6 oz 280 lb 8 oz Intake & Output: Intake & Output 06/14/18 06/15/18 06/15/18 21:59 05:59 13:59 Intake Total 240 / 240 Output Total 525 / 525 Balance 240 / 240 -525 / -525 Weight 291 lb 1.6 oz 280 lb 8 oz Intake: Oral 240 / 240 Output: Urine Catheter Amount 525 / 525 Other: Meal Dinner Percent of Meal Consumed 100% Feeding Ability Assist with Tray Set Up Urine Appearance Clear Uretheral (Wiseman) Clear Urine Color Dark Yellow Uretheral (Wiseman) Tea Colored - General Appearance General appearance: chronically ill, fatigue EENT: mucous membranes dry Neck: supple Respiratory: clear Cardiology: edema Gastrointestinal: no tenderness Integumentary: warm and dry Neurologic: no focal deficit, alert and oriented x3 Musculoskeletal: no deformities Psychiatric: mood/affect appropriate, cooperative - Lab 06/15/18 04:15 06/15/18 04:15 Most recent lab results Calcium 7.8 mg/dl (8.6-10.4) L 06/14/18 03:40 Phosphorus 3.9 mg/dL (2.7-4.5) 06/14/18 03:40 Magnesium 2.2 mg/dL (1.6-2.5) 06/14/18 03:40 Assessment and Plan (1) ESRD (end stage renal disease) on dialysis Maria Isabel He is an 82-year-old male with chronic kidney disease stage 4 admitted on 06/08/18. End stage renal disease with uremia and intractable fluid overload which did not respond to diuresis requiring chronic hemodialysis initiation, present on arrival. Work up: Urinalysis on 06/08/18: Yellow, turbid, pH 5.0, SG 1.015, protein >500, occult blood 0.2, leukocyte esterase 500 Urine culture on 06/08/18: E Coli US Renal on 06/09/18: Severe hydronephrosis. Distended urinary bladder Progress: Tunneled right IJ hemodialysis catheter placed at [facility] on 06/11/18 Daily hemodialysis since 06/11/18 for fluid overload. Urine output: 525 ml reported in the past 24 hours Plan: 1 hour hemodialysis and 2 hours Isolated ultrafiltration today for UF target of 4000 ml Outpatient hemodialysis set up for ESRD requested. The patient seen and evaluated during hemodialysis at 11:00. Status: Chronic Priority: Medium (2) Fluid overload, unspecified Improving with hemodialysis ultrafiltration Status: Acute Priority: High Qualifiers: Hypervolemia type: other Qualified Code(s): E87.79 - Other fluid overload
[2018-06-15 06:46] LABS: ALT/SGPT 18 U/l (0-40); Albumin 2.6 gm/dL (3.2-5.2); Albumin/Globulin Ratio 0.8 (1.0-2.3); Alkaline Phosphatase 127 U/L (39-117); Bilirubin,Direct < 0.2 mg/dL (0.0-0.3); Blood Urea Nitrogen 51 mg/dl (8-23); Gamma Glutamyl Transpeptidase 43 U/L (8-61); Uric Acid 6.7 mg/dL (2.5-8.0)
[2018-06-15] MEDS: INSULIN LISPRO 1 UNIT/0.01 ML UNIT SQ SCH ×4 (08:08→22:07)
[2018-06-15] MEDS ORDERED: LEVOFLOXACIN 500 MG/100 ML BAG IV SCH (09:00)
[2018-06-15] MEDS: FINASTERIDE 5 MG TABLET PO SCH (09:44)
[2018-06-15] MEDS: TAMSULOSIN 0.4 MG CAPSULE PO SCH ×2 (09:45→22:02)
[2018-06-15] MEDS: HEPARIN 5,000 UNIT/ML VIAL SQ SCH ×2 (09:45→22:05)
[2018-06-15] MEDS: FLUTICASONE PROPIONATE SPRAY.NAS NS SCH (09:54)
--- NOTE | 2018-06-15 10:14 | Internal Med Progress Note ---
Medical - PN: Subj Patient information: Note initiated : 06/15/18 at 10:13 am Service Date, if different from initiated Date: [] Patient: Maria Isabel He 82 y/o M admitted on 06/08/18 for Fluid Overload, Acute Kidney Injury. Chief Complaint: [] Interval history: 82yoF with chronic kidney disease stage IV obesity obstructive sleep apnea hypertension diabetes who who had been on 80 of Lasix twice daily. Stopped taking his diuretics about a week ago. Was seen by his infantry weapons crewmember who recommended him come to the hospital for IV diuresis given his anasarca he refused at that time if no risks were explained to him. He did end up going up to his primary care facility [facility] he did get sounds like torsemide which he says "shut him down he did not urinate at all and then he was put on Lasix did not seem to have much response in the past couple days without the diuretic started urinating more per his he put out 1101-day 1100 the next day and 1400 yesterday. He did not want to come down yesterday because of he had some diarrhea which is resolved but agreed to come down today to be admitted for IV diuresis. The diarrhea is essentially resolved sounds like he has been dealing with intermittent constipation diarrhea this year, believes he may have IBS. He has some nausea he has got a chronic cough which is been dry for about 2 weeks he has some nasal congestion. But otherwise no chest pain or shortness of breath. He is very weak he typically is a cane but is been wheelchair-bound this past week. He states his dry weight is around 270 but because of the fluid accumulation he says he is around 300 pounds. He has increased swelling in his lower extremities to his scrotum and abdomen. 06/09 Slept poorly last night. Typically sleeps in a recliner for 15 years. With the bed last night felt was uncomfortable and developed some orthopnea with it. He has some chills and a little bit of nausea with breakfast, he has a mild cough with some clear sputum. No shortness of breath currently in his upright chair no chest pain abdominal pain. A lot of edema still in the legs to the abdomen. Intermittent diarrhea and constipation. 06/10 Little better last night. Does have some nausea and chills. Still very edematous, weak. Mild occasional cough. 06/11 Occasional headache, some shortness of breath. Continued edema. 06/12 CO2 retention last night on pt's as pt noncompliant with his own cpap, changed to our machine for auto-pressures but still was taking it off. HD yesterday with 2L's removed. 06/13 Pt seen examined, was confused yesterday after dialysis, but no other comp.marci DUARTE ant shows ph 7.35/48/72 Pt still on 2 L oxgyen, CXR shwos left pleural effusion, bibasilar infiltrates making dark urine, by bedside. denies any complaints this AM 06/14 pt seen examined, no acute ovenright events yesterday pm noted that he cannot hear after hd, discussed with Dr Herrera , unlikely HD is causing this, reviewed his ears, some wax in the left year, but no discharge, righ ear tm intact, dull appearing. he has marilyn chr hearing SNL loss, and uses hearing aids, advised to talk with his ENT doctor. he has chr tinnitus, but no acute worsening, no headaches. this am he is doing well, no new complaints HD planned today, xfer to med surg status. 06/15 Pt seen examined, no acute issues, tolerating hd ok, get very fatigued after the process, plan for SNF placement concerned about going home given his weakness needs 2 L oxyen when sleeps otherwise well lungs sound better neg [id number] since admission Pertinent ROS: Denies headache, dizziness Denies chest pain, palpitations Denies cough or shortness of breath Denies abdominal pain, nausea or vomiting. Generalized weakness - Constitutional Vitals: Vital Signs Temp Pulse Resp BP Pulse Ox 98.6 F 79 16 142/66 98 06/15/18 07:19 06/15/18 07:19 06/15/18 07:19 06/15/18 07:19 06/15/18 07:19 Period Temp Pulse Resp BP Sys/Adkins Pulse Ox Last 24 Hr 97.8 F-98.8 F 49-79 16-20 105-154/46-76 87-98 Intake and Output 06/14/18 06/15/18 06/15/18 21:59 05:59 13:59 Intake Total 240 / 240 240 / 240 Output Total 525 / 525 Balance 240 / 240 -525 / -525 240 / 240 Weight 291 lb 1.6 oz 280 lb 8 oz Intake & Output: Intake & Output 06/14/18 06/15/18 06/15/18 21:59 05:59 13:59 Intake Total 240 / 240 240 / 240 Output Total 525 / 525 Balance 240 / 240 -525 / -525 240 / 240 Weight 291 lb 1.6 oz 280 lb 8 oz Intake: Oral 240 / 240 240 / 240 Output: Urine Catheter Amount 525 / 525 Other: Meal Dinner Breakfast Percent of Meal Consumed 100% 100% Feeding Ability Assist with Tray Set Up Independent Urine Appearance Clear Uretheral (Hanley) Clear Urine Color Dark Yellow Uretheral (Hanley) Tea Colored Exam: Constitutional; Afebrile, cooperative, alert, not in distress. Respiratory system: Air Entry equal on both sides, No crackles or wheezing, no rhonchi. (absent crackles today) CVS- Rate rhythm regular, S1,S2 heard, no gallop, no rub. Abdomen- Soft nontender abdomen, no organomegaly, no tenderness, no guarding or rigidity, GROMMET WORKER- AOOx3, moving all extremities, no gross focal deficit noted. marilyn lower extremity edema still there Medical - PN: Obj Da - Labs CBC & Chem 7: 06/15/18 04:15 06/15/18 04:15 Labs: Abnormal Lab Results 06/15/18 06/15/18 06/14/18 04:15 04:15 03:40 RBC 3.47 L Hgb 10.6 L Hct 31.8 L Lymph % (Auto) 8.4 L Eos % (Auto) 32.0 H Lymph # (Auto) 0.8 L Eos # (Auto) 2.9 H BUN 51 H 53 H Creatinine 5.5 H* 5.5 H* Glucose 107 H Calcium 8.2 L 7.8 L Alkaline Phosphatase 127 H 130 H Total Protein 5.8 L Albumin 2.6 L 2.5 L Albumin/Globulin Ratio 0.8 L 0.7 L 06/14/18 06/13/18 06/13/18 03:40 07:20 07:20 RBC 3.52 L 3.58 L Hgb 10.8 L 11.1 L Hct 32.7 L 32.8 L Lymph % (Auto) 9.8 L 7.7 L Eos % (Auto) 29.6 H 30.5 H Lymph # (Auto) 0.9 L 0.7 L Eos # (Auto) 2.6 H 2.9 H BUN 48 H Creatinine 4.9 H Glucose 147 H Calcium 7.7 L Alkaline Phosphatase 131 H Total Protein Albumin 2.4 L Albumin/Globulin Ratio 0.7 L Meds: Medications Albuterol/Ipratropium (Duoneb) 3 ml NEB Q4HRT PRN PRN Reason: Dyspnea Artificial Tears (Artificial Tears Ophth Drops) 1 gtt OU 4-6XD PRN PRN Reason: Dry Eye(s) Bupropion HCl (Wellbutrin) 100 mg PO BIDP PRN PRN Reason: ANXIETY/SEDATION Calcium Carbonate/Glycine (Tums) 500 mg PO Q4HP PRN PRN Reason: Indigestion Dextrose (Dextrose 50%) 0 ml IV UD PRN PRN Reason: Hypoglycemia Diagnostic Test (Pha) (Accu-Chek) 1 each FS [facility] Last Admin: 06/15/18 07:55 Dose: 1 each Docusate Sodium (Colace) 100 mg PO TID [facility] Last Admin: 06/14/18 21:41 Dose: 100 mg Famotidine (Pepcid) 20 mg PO HS [facility] Last Admin: 06/14/18 21:42 Dose: 20 mg Finasteride (Proscar) 5 mg PO QDAY [facility] Last Admin: 06/15/18 09:44 Dose: 5 mg Fluticasone Propionate (Flonase) 1 spray NS DAILY [facility] Last Admin: 06/15/18 09:54 Dose: Not Given Glucose (Insta-Glucose) 15 gm PO PRN PRN PRN Reason: Hypoglycemia Heparin Sodium (Porcine) (Heparin) 5,000 unit SQ Q12 [facility] Last Admin: 06/15/18 09:45 Dose: 5,000 unit Levofloxacin (Levaquin) 500 mg in 100 mls @ 100 mls/hr IV Q48H [facility] Insulin Human Lispro (Humalog) 0 unit SQ [facility]; Protocol Last Admin: 06/15/18 08:08 Dose: Not Given Ondansetron HCl (Zofran) 4 mg IV Q4HP PRN PRN Reason: Nausea And Vomiting Last Admin: 06/15/18 03:10 Dose: 4 mg Oxycodone HCl (Roxicodone) 5 mg PO Q4H PRN PRN Reason: PAIN LEVEL > 6 Last Admin: 06/14/18 21:41 Dose: 5 mg Albuterol [Proair (Respiclick] Inhaler) 1 dose INH Q6HP PRN PRN Reason: Shortness Of Breath Polyethylene Glycol (Miralax) 17 gm PO DAILY [facility] Last Admin: 06/14/18 12:59 Dose: 17 gm Sodium Bicarbonate (Sodium Bicarbonate) 650 mg PO BID PRN PRN Reason: Indigestion Sodium Chloride (Saline Flush) 10 ml IV Q8 [facility] Last Admin: 06/15/18 04:40 Dose: 10 ml Tamsulosin HCl (Flomax) 0.4 mg PO BID [facility] Last Admin: 06/15/18 09:45 Dose: 0.4 mg Trazodone HCl (Desyrel) 50 mg PO HSP PRN PRN Reason: Insomnia Medical - PN: A/P - Time Spent With Patient Total time spent is greater than 50% in coordination of care (as documented) at patient's floor/unit and/or counseling patient: - Narrative A/P Narrative: A/P CKD/PAUL- with Generalized Anasarca- Non compliant with diuretic at home, unresponsive to lasix ggt HD as per nephrology, daily sessions, HD and puff treatments. Will discuss with nephrology about safe discahrge plan. anticipate d/c in AM if infantry weapons crewmember agrees, likely after HD SNL Loss- chr issue, worse after HD? advised to check hearing aids, possible outpatient referral to ENT outpatient, no complaints today. PAUL on CKD- Creat elevated still, nephrology following Bladder outlet obstruction/ Hydronephrosis- S/p Hanley placement, outpatient follow up with Urology [place]- notes home cpap does not work well, causing blisters? will refer to pulm as outpatient. Acute hypoxic/ Hypercapnic respiratory failure- CPAP at night, oxygen via nasal canula to keep osat > 90 Health care associated pneumonia- X ray suggestive bibasilar pna, start on levofloxacin, check sputum cx. Urinary tract infection- D/C Rocephin, ans levoflox should cover UTI pathogen DM/HTN/Chr bck pain/Depression/Anxiety- Stable, ssi insulin for glucose control Morbid obesty- out pt follow up. -ppx: Heparin Medical - PN: Qual - VTE Deep Vein Thrombosis/Pulmonary Embolism Present on Admission: No
[2018-06-15 14:18] LABS: Creatine Kinase 49 IU/L (24-195)
[2018-06-15 14:19] LABS: Haptoglobin 255 mg/dl (30-200)
[2018-06-15] MEDS: POLYETHYLENE GLYCOL 3350 17 GM PACKET PO SCH (14:49)
[2018-06-15] MEDS: DOCUSATE SODIUM 100 MG CAPSULE PO SCH ×3 (14:50→22:01)
[2018-06-15] MEDS: LEVOFLOXACIN 500 MG/100 ML BAG IV SCH (14:58)
[2018-06-15] MEDS: FAMOTIDINE 20 MG TABLET PO SCH (22:02)
[2018-06-16 04:50] LABS: Basophils # (Auto) 0 K/mcL (0.0-0.3); Basophils % (Auto) 0.1 % (0.0-2.0); Eosinophils # (Auto) 2.6 K/mcL (0.0-0.7); Eosinophils % (Auto) 27.9 % (0.0-7.0); Granulocytes % (Auto) 54.3 % (38.0-78.0); Lymphocytes # (Auto) 0.9 K/mcL (1.5-4.8); Lymphocytes % (Auto) 9.8 % (15.5-49.0); Mean Cell Volume 91.6 fL (80.0-100.0); Mean Corpuscular HGB Conc 33.2 g/dL (31.0-36.0); Mean Corpuscular Hemoglobin 30.4 pg (26.0-34.0); Monocytes # (Auto) 0.7 K/mcL (0.1-0.9); Monocytes % (Auto) 7.9 % (1.0-12.0); Platelet Count 169 K/mcL (140-440); RBC 3.57 M/mcL (4.50-5.90); Red Cell Distribution Width 14.4 % (11.5-14.5)
[2018-06-16 05:45] LABS: ALT/SGPT 20 U/l (0-40); Albumin 2.7 gm/dL (3.2-5.2); Albumin/Globulin Ratio 0.8 (1.0-2.3); Alkaline Phosphatase 134 U/L (39-117); Bilirubin,Direct < 0.2 mg/dL (0.0-0.3); Blood Urea Nitrogen 42 mg/dl (8-23); Gamma Glutamyl Transpeptidase 45 U/L (8-61); Uric Acid 6.1 mg/dL (2.5-8.0)
--- NOTE | 2018-06-16 06:19 | Nephrology Progress Note ---
Subjective Patient information: Note initiated : 06/16/18 at 6:17 am Maria Isabel He is an 82-year-old male with chronic kidney disease stage 4 admitted on 06/08/18. Chief Complaint: Fluid overload Principal diagnosis: End stage renal disease requiring chronic hemodialysis initiation Interval history: Chronic hemodialysis initiation after tunneled right IJ hemodialysis catheter placement at [facility] on 06/11/18 Pertinent ROS: No confusion No shortness of breath Wiseman catheter Scrotal edema Leg edema Objective - Vital Signs Vital signs: Vital Signs Temp Pulse Pulse Resp BP BP BP 06/16/18 04:00 97.9 F 58 L 20 146/69 06/16/18 00:00 98.2 F 66 16 146/61 06/15/18 19:48 98.0 F 66 20 130/64 06/15/18 16:00 98.2 F 71 18 117/67 06/15/18 13:55 98 F 62 116/60 06/15/18 13:40 62 124/61 06/15/18 13:25 67 119/66 06/15/18 13:10 60 121/53 06/15/18 12:55 60 134/69 06/15/18 12:40 62 114/54 06/15/18 12:25 67 126/68 06/15/18 12:10 98 F 66 113/57 06/15/18 12:00 98.0 F 60 18 118/64 06/15/18 11:55 60 118/64 06/15/18 11:25 62 127/71 06/15/18 10:55 98.6 F 60 144/68 06/15/18 07:30 78 16 06/15/18 07:19 98.6 F 79 16 142/66 Pulse Ox 06/16/18 04:00 94 06/16/18 00:00 98 06/15/18 19:48 94 06/15/18 16:00 95 06/15/18 13:55 06/15/18 13:40 06/15/18 13:25 06/15/18 13:10 06/15/18 12:55 06/15/18 12:40 06/15/18 12:25 06/15/18 12:10 06/15/18 12:00 96 06/15/18 11:55 06/15/18 11:25 06/15/18 10:55 06/15/18 07:30 96 06/15/18 07:19 98 Intake and Output 06/15/18 06/16/18 06/16/18 21:59 05:59 13:59 Intake Total 390 / 390 125 / 125 Output Total 3600 / 3600 150 / 150 Balance -3210 / -3210 -25 / -25 Intake: Oral 390 / 390 125 / 125 Output: Urine Catheter Amount 200 / 200 150 / 150 Hemodialysis UF 3400 / 3400 Other: Meal Lunch Percent of Meal Consumed 50% Feeding Ability Independent Urine Appearance Cloudy Uretheral (Wiseman) Clear Urine Color Dark Beatris Dark Beatris Tea Colored Blood Tinged Uretheral (Wiseman) Tea Colored Urine Odor Strong Normal Weight 275 lb 8 oz Intake & Output: Intake & Output 06/15/18 06/16/18 06/16/18 21:59 05:59 13:59 Intake Total 390 / 390 125 / 125 Output Total 3600 / 3600 150 / 150 Balance -3210 / -3210 -25 / -25 Weight 275 lb 8 oz Intake: Oral 390 / 390 125 / 125 Output: Urine Catheter Amount 200 / 200 150 / 150 Hemodialysis UF 3400 / 3400 Other: Meal Lunch Percent of Meal Consumed 50% Feeding Ability Independent Urine Appearance Cloudy Uretheral (Wiseman) Clear Urine Color Dark Beatris Dark Beatris Tea Colored Blood Tinged Uretheral (Wiseman) Tea Colored Urine Odor Strong Normal - General Appearance General appearance: chronically ill, fatigue EENT: mucous membranes dry Neck: supple Respiratory: clear Cardiology: edema Gastrointestinal: no tenderness Integumentary: chronic venous stasis Neurologic: no focal deficit, alert and oriented x3 Musculoskeletal: no deformities Psychiatric: mood/affect appropriate, cooperative - Lab 06/16/18 04:15 06/16/18 04:15 Most recent lab results Calcium 8.1 mg/dl (8.6-10.4) L 06/16/18 04:15 Phosphorus 3.3 mg/dL (2.7-4.5) 06/16/18 04:15 Magnesium 2.2 mg/dL (1.6-2.5) 06/16/18 04:15 Assessment and Plan (1) ESRD (end stage renal disease) on dialysis Maria Isabel He is an 82-year-old male with chronic kidney disease stage 4 admitted on 06/08/18. End stage renal disease with uremia and intractable fluid overload which did not respond to diuresis requiring chronic hemodialysis initiation, present on arrival. Work up: Urinalysis on 06/08/18: Yellow, turbid, pH 5.0, SG 1.015, protein >500, occult blood 0.2, leukocyte esterase 500 Urine culture on 06/08/18: E Coli US Renal on 06/09/18: Severe hydronephrosis. Distended urinary bladder Progress: Tunneled right IJ hemodialysis catheter placed at [facility] on 06/11/18 Daily hemodialysis since 06/11/18 for fluid overload. Urine output: 350 ml reported in the past 24 hours Plan: 2 hour hemodialysis for 2 kg UF target and 1 hours Isolated ultrafiltration today for 1.5 kg UF target Outpatient hemodialysis set up at [facility] unit for TTS for ESRD. The patient seen and evaluated during hemodialysis at 9:40. Status: Chronic Priority: Medium (2) Fluid overload, unspecified Improving with hemodialysis ultrafiltration; lost 35 lbs so far Status: Acute Priority: High Qualifiers: Hypervolemia type: other Qualified Code(s): E87.79 - Other fluid overload
[2018-06-16] MEDS: INSULIN LISPRO 1 UNIT/0.01 ML UNIT SQ SCH ×4 (06:57→21:30)
[2018-06-16] MEDS: 0.9 % SODIUM CHLORIDE 10 ML SYRINGE IV SCH ×3 (06:59→21:30)
[2018-06-16 07:54] LABS: Immunoglobulin A 318.8 mg/dl (70.0-400.0); Immunoglobulin M 134.1 mg/dl (40.0-230.0)
--- NOTE | 2018-06-16 10:17 | Internal Med Progress Note ---
Medical - PN: Subj Patient information: Note initiated : 06/16/18 at 10:15 am Service Date, if different from initiated Date: [] Patient: Maria Isabel He 82 y/o M admitted on 06/08/18 for Fluid Overload, Acute Kidney Injury. Chief Complaint: [] Interval history: 82yoF with chronic kidney disease stage IV obesity obstructive sleep apnea hypertension diabetes who who had been on 80 of Lasix twice daily. Stopped taking his diuretics about a week ago. 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 He did end up going up to his primary care facility [facility] he did get sounds like torsemide which he says "shut him down he did not urinate at all and then he was put on Lasix did not seem to have much response in the past couple days without the diuretic started urinating more per his he put out 1101-day 1100 the next day and 1400 yesterday. He did not want to come down yesterday because of he had some diarrhea which is resolved but agreed to come down today to be admitted for IV diuresis. The diarrhea is essentially resolved sounds like he has been dealing with intermittent constipation diarrhea this year, believes he may have IBS. He has some nausea he has got a chronic cough which is been dry for about 2 weeks he has some nasal congestion. But otherwise no chest pain or shortness of breath. He is very weak he typically is a cane but is been wheelchair-bound this past week. He states his dry weight is around 270 but because of the fluid accumulation he says he is around 300 pounds. He has increased swelling in his lower extremities to his scrotum and abdomen. 06/09 Slept poorly last night. Typically sleeps in a recliner for 15 years. With the bed last night felt was uncomfortable and developed some orthopnea with it. He has some chills and a little bit of nausea with breakfast, he has a mild cough with some clear sputum. No shortness of breath currently in his upright chair no chest pain abdominal pain. A lot of edema still in the legs to the abdomen. Intermittent diarrhea and constipation. 06/10 Little better last night. Does have some nausea and chills. Still very edematous, weak. Mild occasional cough. 06/11 Occasional headache, some shortness of breath. Continued edema. 06/12 CO2 retention last night on pt's as pt noncompliant with his own cpap, changed to our machine for auto-pressures but still was taking it off. HD yesterday with 2L's removed. 06/13 Pt seen examined, was confused yesterday after dialysis, but no other comp.marci AB ant shows ph 7.35/48/72 Pt still on 2 L oxgyen, CXR shwos left pleural effusion, bibasilar infiltrates making dark urine, by bedside. denies any complaints this AM 06/14 pt seen examined, no acute ovenright events yesterday pm noted that he cannot hear after hd, discussed with Dr Herrera , unlikely HD is causing this, reviewed his ears, some wax in the left year, but no discharge, righ ear tm intact, dull appearing. he has marilyn chr hearing SNL loss, and uses hearing aids, advised to talk with his ENT doctor. he has chr tinnitus, but no acute worsening, no headaches. this am he is doing well, no new complaints HD planned today, xfer to med surg status. 06/15 Pt seen examined, no acute issues, tolerating hd ok, get very fatigued after the process, plan for SNF placement concerned about going home given his weakness needs 2 L oxyen when sleeps otherwise well lungs sound better neg [id number] since admission 06/16 Pt seen examined doing well, labs stable pt deneis any complaints feels breathing is good, says not good, pt looks comfortable, needs oxygen at night due to [place]. Neg 16L since admission, lungs clear plan for D/c today on hold due to SNF not having a bed ready, HD today, and tomorrow(tomorrow would be his scheduled day), anticipate d/c after HD tomorrow if pt remains stable. Pertinent ROS: Denies headache, dizziness Denies chest pain, palpitations Denies cough or shortness of breath Denies abdominal pain, nausea or vomiting. - Constitutional Vitals: Vital Signs Temp Pulse Resp BP Pulse Ox 99.2 F H 60 20 115/56 92 06/16/18 08:35 06/16/18 10:05 06/16/18 07:54 06/16/18 10:05 06/16/18 07:54 Period Temp Pulse Resp BP Sys/Adkins Pulse Ox Last 24 Hr 97.9 F-99.2 F 58-80 16-20 98-146/42-73 92-98 Intake and Output 06/15/18 06/16/18 06/16/18 21:59 05:59 13:59 Intake Total 390 / 390 125 / 125 50 / 50 Output Total 3600 / 3600 150 / 150 Balance -3210 / -3210 -25 / -25 50 / 50 Weight 275 lb 8 oz Intake & Output: Intake & Output 06/15/18 06/16/18 06/16/18 21:59 05:59 13:59 Intake Total 390 / 390 125 / 125 50 / 50 Output Total 3600 / 3600 150 / 150 Balance -3210 / -3210 -25 / -25 50 / 50 Weight 275 lb 8 oz Intake: Oral 390 / 390 125 / 125 50 / 50 Output: Urine Catheter Amount 200 / 200 150 / 150 Hemodialysis UF 3400 / 3400 Other: Meal Lunch Breakfast Percent of Meal Consumed 50% 100% Feeding Ability Independent Independent Urine Appearance Cloudy Uretheral (Wiseman) Clear Cloudy Urine Color Dark Beatris Dark Beatris Tea Colored Blood Tinged Uretheral (Wiseman) Tea Colored Tea Colored Urine Odor Strong Normal Exam: Constitutional; Afebrile, cooperative, alert, not in distress. Respiratory system: Air Entry equal on both sides, No crackles or wheezing, no rhonchi. CVS- Rate rhythm regular, S1,S2 heard, no gallop, no rub. 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 Edema improving, but still has +++ Medical - PN: Obj Da - Labs CBC & Chem 7: 06/16/18 04:15 06/16/18 04:15 Labs: Abnormal Lab Results 06/16/18 06/16/18 06/15/18 04:15 04:15 13:22 RBC 3.57 L Hgb 10.9 L Hct 32.7 L Lymph % (Auto) 9.8 L Eos % (Auto) 27.9 H Lymph # (Auto) 0.9 L Eos # (Auto) 2.6 H Haptoglobin 255 H BUN 42 H Creatinine 5.4 H* Glucose 120 H Calcium 8.1 L Alkaline Phosphatase 134 H Total Protein Albumin 2.7 L Albumin/Globulin Ratio 0.8 L 06/15/18 06/15/18 06/14/18 04:15 04:15 03:40 RBC 3.47 L Hgb 10.6 L Hct 31.8 L Lymph % (Auto) 8.4 L Eos % (Auto) 32.0 H Lymph # (Auto) 0.8 L Eos # (Auto) 2.9 H Haptoglobin BUN 51 H 53 H Creatinine 5.5 H* 5.5 H* Glucose 107 H Calcium 8.2 L 7.8 L Alkaline Phosphatase 127 H 130 H Total Protein 5.8 L Albumin 2.6 L 2.5 L Albumin/Globulin Ratio 0.8 L 0.7 L 06/14/18 03:40 RBC 3.52 L Hgb 10.8 L Hct 32.7 L Lymph % (Auto) 9.8 L Eos % (Auto) 29.6 H Lymph # (Auto) 0.9 L Eos # (Auto) 2.6 H Haptoglobin BUN Creatinine Glucose Calcium Alkaline Phosphatase Total Protein Albumin Albumin/Globulin Ratio Meds: Medications Albuterol/Ipratropium (Duoneb) 3 ml NEB Q4HRT PRN PRN Reason: Dyspnea Artificial Tears (Artificial Tears Ophth Drops) 1 gtt OU 4-6XD PRN PRN Reason: Dry Eye(s) Bupropion HCl (Wellbutrin) 100 mg PO BIDP PRN PRN Reason: ANXIETY/SEDATION Calcium Carbonate/Glycine (Tums) 500 mg PO Q4HP PRN PRN Reason: Indigestion Dextrose (Dextrose 50%) 0 ml IV UD PRN PRN Reason: Hypoglycemia Diagnostic Test (Pha) (Accu-Chek) 1 each FS ACHS [facility] Last Admin: 06/16/18 09:15 Dose: 1 each Docusate Sodium (Colace) 100 mg PO TID [facility] Last Admin: 06/15/18 22:01 Dose: Not Given Famotidine (Pepcid) 20 mg PO HS [facility] Last Admin: 06/15/18 22:02 Dose: 20 mg Finasteride (Proscar) 5 mg PO QDAY [facility] Last Admin: 06/15/18 09:44 Dose: 5 mg Fluticasone Propionate (Flonase) 1 spray NS DAILY [facility] Last Admin: 06/15/18 09:54 Dose: Not Given Glucose (Insta-Glucose) 15 gm PO PRN PRN PRN Reason: Hypoglycemia Heparin Sodium (Porcine) (Heparin) 5,000 unit SQ Q12 [facility] Last Admin: 06/15/18 22:05 Dose: 5,000 unit Levofloxacin (Levaquin) 500 mg in 100 mls @ 100 mls/hr IV Q48H [facility] Last Admin: 06/15/18 14:58 Dose: 100 mls/hr Insulin Human Lispro (Humalog) 0 unit SQ ACHS [facility]; Protocol Last Admin: 06/16/18 06:57 Dose: Not Given Ondansetron HCl (Zofran) 4 mg IV Q4HP PRN PRN Reason: Nausea And Vomiting Last Admin: 06/15/18 03:10 Dose: 4 mg Oxycodone HCl (Roxicodone) 5 mg PO Q4H PRN PRN Reason: PAIN LEVEL > 6 Last Admin: 06/14/18 21:41 Dose: 5 mg Albuterol [Proair (Respiclick] Inhaler) 1 dose INH Q6HP PRN PRN Reason: Shortness Of Breath Polyethylene Glycol (Miralax) 17 gm PO DAILY [facility] Last Admin: 06/15/18 14:49 Dose: 7 gm Sodium Bicarbonate (Sodium Bicarbonate) 650 mg PO BID PRN PRN Reason: Indigestion Sodium Chloride (Saline Flush) 10 ml IV Q8 [facility] Last Admin: 06/16/18 06:59 Dose: 10 ml Tamsulosin HCl (Flomax) 0.4 mg PO BID [facility] Last Admin: 06/15/18 22:02 Dose: 0.4 mg Trazodone HCl (Desyrel) 50 mg PO HSP PRN PRN Reason: Insomnia Medical - PN: A/P - Time Spent With Patient Total time spent is greater than 50% in coordination of care (as documented) at patient's floor/unit and/or counseling patient: - Narrative A/P Narrative: A/P CKD/PAUL- with Generalized Anasarca- Non compliant with diuretic at home, unresponsive to lasix ggt HD as per nephrology, daily sessions, HD and puff treatments. stable for d/c from nephrology stand point, Three times weekly HD sessions planned. SNL Loss- chr issue, worse after HD? advised to check hearing aids, possible outpatient referral to ENT outpatient, no complaints, seesm to understand me fairly well. PAUL on CKD- Creat elevated still, nephrology following Bladder outlet obstruction/ Hydronephrosis- S/p Wiseman placement, outpatient follow up with Urology [place]- notes home cpap does not work well, causing blisters? will refer to pulm as outpatient. Acute hypoxic/ Hypercapnic respiratory failure- CPAP at night, oxygen via nasal canula to keep osat > 90 Health care associated pneumonia- X ray suggestive bibasilar pna, start on levofloxacin, check sputum cx. Urinary tract infection- D/C Rocephin, ans levoflox should cover UTI pathogen DM/HTN/Chr bck pain/Depression/Anxiety- Stable, ssi insulin for glucose control Morbid obesty- out pt follow up. -ppx: Heparin Medical - PN: Qual - VTE Deep Vein Thrombosis/Pulmonary Embolism Present on Admission: No
[2018-06-16] MEDS: HEPARIN 5,000 UNIT/ML VIAL SQ SCH ×2 (12:22→20:01)
[2018-06-16] MEDS: POLYETHYLENE GLYCOL 3350 17 GM PACKET PO SCH ×2 (12:23→20:10)
[2018-06-16] MEDS: FLUTICASONE PROPIONATE SPRAY.NAS NS SCH (12:24)
[2018-06-16] MEDS: FINASTERIDE 5 MG TABLET PO SCH (12:25)
[2018-06-16] MEDS: DOCUSATE SODIUM 100 MG CAPSULE PO SCH ×3 (12:26→20:01)
[2018-06-16] MEDS: TAMSULOSIN 0.4 MG CAPSULE PO SCH ×2 (12:26→20:01)
[2018-06-16] MEDS ORDERED: CETIRIZINE 10 MG TABLET PO PRN (13:19)
[2018-06-16] MEDS: FAMOTIDINE 20 MG TABLET PO SCH (20:01)
--- NOTE | 2018-06-17 06:28 | Nephrology Progress Note ---
Subjective Patient information: Note initiated : 06/17/18 at 6:26 am Maria Isabel He is an 82-year-old male with chronic kidney disease stage 4 admitted on 06/08/18. Chief Complaint: Fluid overload Principal diagnosis: End stage renal disease requiring chronic hemodialysis initiation Interval history: Chronic hemodialysis initiation after tunneled right IJ hemodialysis catheter placement at [facility] on 06/11/18 Pertinent ROS: No confusion No shortness of breath, using 2 L/min NC at night Wiseman catheter Scrotal edema Leg edema Objective - Vital Signs Vital signs: Vital Signs Temp Pulse Pulse Resp BP BP Pulse Ox 06/17/18 03:49 98.4 F 63 20 142/65 94 06/17/18 00:00 98.5 F 74 20 147/66 97 06/16/18 20:00 97.4 F 61 20 138/64 98 06/16/18 15:39 97.7 F 66 18 135/53 92 06/16/18 12:15 98.8 F 65 18 115/59 93 06/16/18 11:35 98.9 F 60 111/51 06/16/18 11:20 60 122/58 06/16/18 11:05 60 110/49 06/16/18 10:50 60 110/55 06/16/18 10:35 60 115/64 06/16/18 10:20 62 107/59 06/16/18 10:05 60 115/56 06/16/18 09:50 66 121/60 06/16/18 09:35 80 126/58 06/16/18 09:20 74 100/47 06/16/18 09:05 68 98/42 06/16/18 08:50 69 135/60 06/16/18 08:35 99.2 F H 71 142/73 06/16/18 07:54 97.9 F 69 20 144/56 92 06/16/18 07:00 64 20 95 Intake and Output 06/16/18 06/17/18 06/17/18 21:59 05:59 13:59 Intake Total 643 / 643 50 / 50 Output Total 275 / 275 Balance 643 / 643 -225 / -225 Intake: Oral 643 / 643 50 / 50 Output: Void Amount 275 / 275 Other: Meal Dinner Percent of Meal Consumed 100% Feeding Ability Independent Urine Appearance Clear Uretheral (Wiseman) Cloudy Urine Color Dark Beatris Uretheral (Wiseman) Tea Colored Urine Odor Normal Stool Size Small Stool Consistency Dry and Hard # Bowel Movements 1 Weight 268 lb 11.2 oz Intake & Output: Intake & Output 06/16/18 06/17/18 06/17/18 21:59 05:59 13:59 Intake Total 643 / 643 50 / 50 Output Total 275 / 275 Balance 643 / 643 -225 / -225 Weight 268 lb 11.2 oz Intake: Oral 643 / 643 50 / 50 Output: Void Amount 275 / 275 Other: Meal Dinner Percent of Meal Consumed 100% Feeding Ability Independent Urine Appearance Clear Uretheral (Wiseman) Cloudy Urine Color Dark Beatris Uretheral (Wiseman) Tea Colored Urine Odor Normal Stool Size Small Stool Consistency Dry and Hard # Bowel Movements 1 - General Appearance General appearance: chronically ill, fatigue EENT: mucous membranes dry Neck: supple Respiratory: clear Cardiology: edema Gastrointestinal: no tenderness Integumentary: chronic venous stasis Neurologic: no focal deficit, alert and oriented x3 Musculoskeletal: no deformities Psychiatric: mood/affect appropriate, cooperative - Lab 06/17/18 04:55 06/17/18 04:55 Most recent lab results Calcium 8.1 mg/dl (8.6-10.4) L 06/16/18 04:15 Phosphorus 3.3 mg/dL (2.7-4.5) 06/16/18 04:15 Magnesium 2.2 mg/dL (1.6-2.5) 06/16/18 04:15 Assessment and Plan (1) ESRD (end stage renal disease) on dialysis Maria Isabel He is an 82-year-old male admitted on 06/08/18. End stage renal disease with uremia and intractable fluid overload which did not respond to diuresis requiring chronic hemodialysis initiation, present on arrival. Work up: Urinalysis on 06/08/18: Yellow, turbid, pH 5.0, SG 1.015, protein >500, occult blood 0.2, leukocyte esterase 500 Urine culture on 06/08/18: E Coli US Renal on 06/09/18: Severe hydronephrosis. Distended urinary bladder Progress: Tunneled right IJ hemodialysis catheter placed at [facility] on 06/11/18 Daily hemodialysis since 06/11/18 for fluid overload. Urine output: 275 ml reported in the past 24 hours Plan: 3 hour hemodialysis with 3.5 kg UF target Outpatient hemodialysis set up at [facility] unit for TTS for ESRD. The patient seen and evaluated during hemodialysis at 9;45. Status: Chronic Priority: Medium (2) Fluid overload, unspecified Improving with hemodialysis ultrafiltration; lost 43 lbs so far Status: Acute Priority: High Qualifiers: Hypervolemia type: other Qualified Code(s): E87.79 - Other fluid overload
[2018-06-17 06:30] LABS: Basophils # (Auto) 0 K/mcL (0.0-0.3); Basophils % (Auto) 0.3 % (0.0-2.0); Eosinophils # (Auto) 2.6 K/mcL (0.0-0.7); Eosinophils % (Auto) 29.8 % (0.0-7.0); Granulocytes % (Auto) 52.3 % (38.0-78.0); Lymphocytes # (Auto) 0.8 K/mcL (1.5-4.8); Lymphocytes % (Auto) 9.8 % (15.5-49.0); Mean Cell Volume 92.5 fL (80.0-100.0); Mean Corpuscular HGB Conc 33.4 g/dL (31.0-36.0); Mean Corpuscular Hemoglobin 30.9 pg (26.0-34.0); Monocytes # (Auto) 0.7 K/mcL (0.1-0.9); Monocytes % (Auto) 7.8 % (1.0-12.0); Platelet Count 161 K/mcL (140-440); RBC 3.32 M/mcL (4.50-5.90); Red Cell Distribution Width 14.1 % (11.5-14.5)
[2018-06-17 07:26] LABS: ALT/SGPT 21 U/l (0-40); Albumin 2.7 gm/dL (3.2-5.2); Albumin/Globulin Ratio 0.8 (1.0-2.3); Alkaline Phosphatase 118 U/L (39-117); Bilirubin,Direct < 0.2 mg/dL (0.0-0.3); Blood Urea Nitrogen 35 mg/dl (8-23); Gamma Glutamyl Transpeptidase 43 U/L (8-61); Uric Acid 5.8 mg/dL (2.5-8.0)
[2018-06-17] MEDS: INSULIN LISPRO 1 UNIT/0.01 ML UNIT SQ SCH ×4 (07:41→20:05)
[2018-06-17] MEDS ORDERED: CETIRIZINE 10 MG TABLET PO ONE (08:08)
[2018-06-17] MEDS ORDERED: BISACODYL 10 MG SUPP.RECT PR ONE (08:15)
[2018-06-17 09:56] LABS: Lambda Free Light Chains 74.84 mg/L (5.71-26.30)
--- NOTE | 2018-06-17 11:29 | Internal Med Progress Note ---
Medical - PN: Subj Patient information: Note initiated : 06/17/18 at 11:26 am Service Date, if different from initiated Date: [] Patient: Maria Isabel He 82 y/o M admitted on 06/08/18 for Fluid Overload, Acute Kidney Injury. Chief Complaint: [] Interval history: 82yoF with chronic kidney disease stage IV obesity obstructive sleep apnea hypertension diabetes who who had been on 80 of Lasix twice daily. Stopped taking his diuretics about a week ago. Was seen by his clinical research nurse who recommended him come to the hospital for IV diuresis given his anasarca he refused at that time if no risks were explained to him. He did end up going up to his primary care facility [facility] he did get sounds like torsemide which he says "shut him down he did not urinate at all and then he was put on Lasix did not seem to have much response in the past couple days without the diuretic started urinating more per his he put out 1101-day 1100 the next day and 1400 yesterday. He did not want to come down yesterday because of he had some diarrhea which is resolved but agreed to come down today to be admitted for IV diuresis. The diarrhea is essentially resolved sounds like he has been dealing with intermittent constipation diarrhea this year, believes he may have IBS. He has some nausea he has got a chronic cough which is been dry for about 2 weeks he has some nasal congestion. But otherwise no chest pain or shortness of breath. He is very weak he typically is a cane but is been wheelchair-bound this past week. He states his dry weight is around 270 but because of the fluid accumulation he says he is around 300 pounds. He has increased swelling in his lower extremities to his scrotum and abdomen. 06/09 Slept poorly last night. Typically sleeps in a recliner for 15 years. With the bed last night felt was uncomfortable and developed some orthopnea with it. He has some chills and a little bit of nausea with breakfast, he has a mild cough with some clear sputum. No shortness of breath currently in his upright chair no chest pain abdominal pain. A lot of edema still in the legs to the abdomen. Intermittent diarrhea and constipation. 06/10 Little better last night. Does have some nausea and chills. Still very edematous, weak. Mild occasional cough. 06/11 Occasional headache, some shortness of breath. Continued edema. 06/12 CO2 retention last night on pt's as pt noncompliant with his own cpap, changed to our machine for auto-pressures but still was taking it off. HD yesterday with 2L's removed. 06/13 Pt seen examined, was confused yesterday after dialysis, but no other comp.marci AB ant shows ph 7.35/48/72 Pt still on 2 L oxgyen, CXR shwos left pleural effusion, bibasilar infiltrates making dark urine, by bedside. denies any complaints this AM 06/14 pt seen examined, no acute ovenright events yesterday pm noted that he cannot hear after hd, discussed with Dr Herrera , unlikely HD is causing this, reviewed his ears, some wax in the left year, but no discharge, righ ear tm intact, dull appearing. he has marilyn chr hearing SNL loss, and uses hearing aids, advised to talk with his ENT doctor. he has chr tinnitus, but no acute worsening, no headaches. this am he is doing well, no new complaints HD planned today, xfer to med surg status. 06/15 Pt seen examined, no acute issues, tolerating hd ok, get very fatigued after the process, plan for SNF placement concerned about going home given his weakness needs 2 L oxyen when sleeps otherwise well lungs sound better neg [id number] since admission 06/16 Pt seen examined doing well, labs stable pt deneis any complaints feels breathing is good, says not good, pt looks comfortable, needs oxygen at night due to [place]. Neg 16L since admission, lungs clear plan for D/c today on hold due to SNF not having a bed ready, HD today, and tomorrow(tomorrow would be his scheduled day), anticipate d/c after HD tomorrow if pt remains stable. 06/17 Pt seen examined, no acute overnight issues, pt tolerating po diet well, no chest pain no shortness of breath Some sleep issues which are chronic. Pt undergoing HD Planned d/c today ,but on hold due to non availability of bed at Rehab center. Pertinent ROS: Denies headache, dizziness Denies chest pain, palpitations Denies cough or shortness of breath Denies abdominal pain, nausea or vomiting. - Constitutional Vitals: Vital Signs Temp Pulse Resp BP Pulse Ox 99.3 F H 60 18 124/57 92 06/17/18 11:06 06/17/18 11:06 06/17/18 07:22 06/17/18 11:06 06/17/18 07:22 Period Temp Pulse Resp BP Sys/Adkins Pulse Ox Last 24 Hr 97.4 F-100.0 F 60-79 18-20 99-163/46-74 92-98 Intake and Output 06/16/18 06/17/18 06/17/18 21:59 05:59 13:59 Intake Total 643 / 643 50 / 50 Output Total 275 / 275 Balance 643 / 643 -225 / -225 Weight 268 lb 11.2 oz 268 lb 11.2 oz Patient Weight 06/18/18 05:59 Weight 268 lb 11.2 oz Intake & Output: Intake & Output 06/16/18 06/17/18 06/17/18 21:59 05:59 13:59 Intake Total 643 / 643 50 / 50 Output Total 275 / 275 Balance 643 / 643 -225 / -225 Weight 268 lb 11.2 oz 268 lb 11.2 oz Intake: Oral 643 / 643 50 / 50 Output: Void Amount 275 / 275 Other: Meal Dinner Breakfast Percent of Meal Consumed 100% 100% Feeding Ability Independent Assist with Tray Set Up Urine Appearance Clear Uretheral (Wiesman) Cloudy Urine Color Dark Beatris Uretheral (Wiseman) Tea Colored Urine Odor Normal Stool Size Small Stool Consistency Dry and Hard # Bowel Movements 1 Exam: Constitutional; Afebrile, cooperative, alert, not in distress. Respiratory system: Air Entry equal on both sides, No crackles or wheezing, no rhonchi. CVS- Rate rhythm regular, S1,S2 heard, no gallop, no rub. Abdomen- Soft nontender abdomen, no organomegaly, no tenderness, no guarding or rigidity, AERONAUTICAL ENGINEER- AOOx3, moving all extremities, no gross focal deficit noted. Edema improving Medical - PN: Obj Da - Labs CBC & Chem 7: 06/17/18 04:55 06/17/18 04:55 Labs: Abnormal Lab Results 06/17/18 06/17/18 06/16/18 04:55 04:55 04:15 RBC 3.32 L Hgb 10.3 L Hct 30.8 L Lymph % (Auto) 9.8 L Eos % (Auto) 29.8 H Lymph # (Auto) 0.8 L Eos # (Auto) 2.6 H Haptoglobin BUN 35 H Creatinine 5.4 H* Glucose Calcium 8.2 L Alkaline Phosphatase 118 H Lactate Dehydrogenase 252 H Total Protein Albumin 2.7 L Albumin/Globulin Ratio 0.8 L Free [place] LC, Quant 189.87 H Free [place] LC, Quant 74.84 H Free [place]/Lambda Ratio 2.537 H 06/16/18 06/16/18 06/15/18 04:15 04:15 13:22 RBC 3.57 L Hgb 10.9 L Hct 32.7 L Lymph % (Auto) 9.8 L Eos % (Auto) 27.9 H Lymph # (Auto) 0.9 L Eos # (Auto) 2.6 H Haptoglobin 255 H BUN 42 H Creatinine 5.4 H* Glucose 120 H Calcium 8.1 L Alkaline Phosphatase 134 H Lactate Dehydrogenase Total Protein Albumin 2.7 L Albumin/Globulin Ratio 0.8 L Free [place] LC, Quant Free [place]ambda LC, Quant Free [place]/Lambda Ratio 06/15/18 06/15/18 04:15 04:15 RBC 3.47 L Hgb 10.6 L Hct 31.8 L Lymph % (Auto) 8.4 L Eos % (Auto) 32.0 H Lymph # (Auto) 0.8 L Eos # (Auto) 2.9 H Haptoglobin BUN 51 H Creatinine 5.5 H* Glucose Calcium 8.2 L Alkaline Phosphatase 127 H Lactate Dehydrogenase Total Protein 5.8 L Albumin 2.6 L Albumin/Globulin Ratio 0.8 L Free [place] LC, Quant Free [place] LC, Quant Free [place]/Lambda Ratio Meds: Medications Albuterol/Ipratropium (Duoneb) 3 ml NEB Q4HRT PRN PRN Reason: Dyspnea Artificial Tears (Artificial Tears Ophth Drops) 1 gtt OU 4-6XD PRN PRN Reason: Dry Eye(s) Bupropion HCl (Wellbutrin) 100 mg PO BIDP PRN PRN Reason: ANXIETY/SEDATION Calcium Carbonate/Glycine (Tums) 500 mg PO Q4HP PRN PRN Reason: Indigestion Dextrose (Dextrose 50%) 0 ml IV UD PRN PRN Reason: Hypoglycemia Diagnostic Test (Pha) (Accu-Chek) 1 each FS ACHS MARCOS Last Admin: 06/17/18 07:41 Dose: 1 each Docusate Sodium (Colace) 100 mg PO TID [facility] Last Admin: 06/16/18 20:01 Dose: 100 mg Famotidine (Pepcid) 20 mg PO HS [facility] Last Admin: 06/16/18 20:01 Dose: 20 mg Finasteride (Proscar) 5 mg PO QDAY [facility] Last Admin: 06/16/18 12:25 Dose: 5 mg Fluticasone Propionate (Flonase) 1 spray NS DAILY [facility] Last Admin: 06/16/18 12:24 Dose: Not Given Glucose (Insta-Glucose) 15 gm PO PRN PRN PRN Reason: Hypoglycemia Heparin Sodium (Porcine) (Heparin) 5,000 unit SQ Q12 [facility] Last Admin: 06/16/18 20:01 Dose: 5,000 unit Levofloxacin (Levaquin) 500 mg in 100 mls @ 100 mls/hr IV Q48H [facility] Last Infusion: 06/15/18 15:58 Dose: Infused Insulin Human Lispro (Humalog) 0 unit SQ [facility]; Protocol Last Admin: 06/17/18 07:41 Dose: Not Given Ondansetron HCl (Zofran) 4 mg IV Q4HP PRN PRN Reason: Nausea And Vomiting Last Admin: 06/15/18 03:10 Dose: 4 mg Oxycodone HCl (Roxicodone) 5 mg PO Q4H PRN PRN Reason: PAIN LEVEL > 6 Last Admin: 06/14/18 21:41 Dose: 5 mg Albuterol [Proair (Respiclick] Inhaler) 1 dose INH Q6HP PRN PRN Reason: Shortness Of Breath Polyethylene Glycol (Miralax) 17 gm PO DAILY [facility] Last Admin: 06/16/18 20:10 Dose: 9 gm Sodium Bicarbonate (Sodium Bicarbonate) 650 mg PO BID PRN PRN Reason: Indigestion Sodium Chloride (Saline Flush) 10 ml IV Q8 [facility] Last Admin: 06/16/18 21:30 Dose: 10 ml Tamsulosin HCl (Flomax) 0.4 mg PO BID [facility] Last Admin: 06/16/18 20:01 Dose: 0.4 mg Trazodone HCl (Desyrel) 50 mg PO HSP PRN PRN Reason: Insomnia Medical - PN: A/P - Time Spent With Patient Total time spent is greater than 50% in coordination of care (as documented) at patient's floor/unit and/or counseling patient: - Narrative A/P Narrative: A/P CKD/PAUL- with Generalized Anasarca- Non compliant with diuretic at home, unresponsive to lasix ggt HD as per nephrology, daily sessions, HD and puff treatments. stable for d/c from nephrology stand point, Three times weekly HD sessions planned. Patient is neg [id number] since admission. SNL Loss- chr issue, worse after HD? PAUL on CKD- Creat elevated still, nephrology following, will continue with HD as outpatient. 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 will refer to pulm as outpatient. Acute hypoxic/ Hypercapnic respiratory failure- CPAP at night, oxygen via nasal canula to keep osat > 90, refer pulm as outpatient Health care associated pneumonia- X ray suggestive bibasilar pna, start on levofloxacin, Urinary tract infection- D/C Rocephin, ans levoflox should cover UTI pathogen DM/HTN/Chr bck pain/Depression/Anxiety- Stable, ssi insulin for glucose control Morbid obesty- out pt follow up. -ppx: Heparin patient stable for d/c awaiting bed from SNF facility. Medical - PN: Qual - VTE Deep Vein Thrombosis/Pulmonary Embolism Present on Admission: No
[2018-06-17] MEDS: TAMSULOSIN 0.4 MG CAPSULE PO SCH ×2 (12:00→20:10)
[2018-06-17] MEDS: LEVOFLOXACIN 500 MG/100 ML BAG IV SCH (12:00)
[2018-06-17] MEDS: DOCUSATE SODIUM 100 MG CAPSULE PO SCH ×3 (12:00→20:10)
[2018-06-17] MEDS: FINASTERIDE 5 MG TABLET PO SCH (12:00)
[2018-06-17] MEDS: POLYETHYLENE GLYCOL 3350 17 GM PACKET PO SCH ×2 (12:00→12:08)
[2018-06-17] MEDS: 0.9 % SODIUM CHLORIDE 10 ML SYRINGE IV SCH ×3 (12:01→20:11)
[2018-06-17] MEDS: HEPARIN 5,000 UNIT/ML VIAL SQ SCH ×2 (12:01→20:10)
[2018-06-17] MEDS: FLUTICASONE PROPIONATE SPRAY.NAS NS SCH (12:02)
[2018-06-17] MEDS ORDERED: LACTULOSE 20 GM/30 ML ORAL.SOL PO ONE (13:26)
--- NOTE | 2018-06-17 14:00 | Discharge Summary ---
Medical - DS: Prov Patient information: Note initiated : 06/17/18 at 1:57 pm Service Date, if different from initiated Date: [] Patient: Maria Isabel He 82 y/o M admitted on 06/08/18 for Fluid Overload, Acute Kidney Injury. Chief Complaint: [] Date of admission: 06/08/18 16:15 Discharge date: 06/18/18 Primary care physician: Martell Cavazos Consults: 06/08/18 16:24 Consult to Physician [CONS] Routine Comment: Consulting Provider: Megha Martinez Reason For Exam: Physician to Consult Medical - DS: Meds - Discharge Medications Active and Home Medications: Home Medications amlodipine 10 mg tablet 10 mg PO QDAY 05/19/17 [History Confirmed 06/09/18 Last Taken 06/07/18 21:00] finasteride 5 mg tablet 5 mg PO QDAY 05/19/17 [History Confirmed 06/09/18 Last Taken Unknown] Lubricating (PF) OPH OINT OPHTHALMIC 06/17/17 [History Confirmed 06/02/18 Last Taken Unknown] albuterol sulfate 90 mcg/actuation breath activated powder inhaler 1 inh INHALATION Q6H 06/17/17 [History Confirmed 06/09/18 Last Taken Unknown] calcium carbonate 500 mg calcium (1,250 mg) chewable tablet 500 mg PO Q4H PRN tab 06/17/17 [History Confirmed 06/09/18 Last Taken Unknown] clobetasol TOPICAL BID PRN 06/17/17 [History Confirmed 06/02/18 Last Taken Unknown] dextran 70-hypromellose eye drops 1 drp OPHTHALMIC 4-6XD PRN 06/17/17 [History Confirmed 06/09/18 Last Taken Unknown] docusate sodium 100 mg capsule 100 mg PO TID cap 06/17/17 [History Confirmed Last Taken Unknown] glucose 4 gram chewable tablet 12 g PO ONCE PRN tab 06/17/17 [History Confirmed 06/09/18 Last Taken Unknown] ketoconazole 2 % shampoo 1 applic TOPICAL .Q3W ml 06/17/17 [History Confirmed 06/02/18 Last Taken Unknown] ofloxacin 0.3 % eye drops 1 drp OPHTHALMIC .QH PRN ml 06/17/17 [History Confirmed 06/02/18 Last Taken Unknown] ranitidine 300 mg tablet 300 mg PO BID tab 06/17/17 [History Confirmed Last Taken Unknown] selenium sulfide 2.5 % shampoo 1 applic TOPICAL 3XW 06/17/17 [History Confirmed 06/02/18 Last Taken Unknown] trazodone 100 mg tablet 50 mg PO QHS PRN 06/17/17 [History Confirmed 06/09/18 Last Taken Unknown] fluticasone 50 mcg/actuation nasal spray,suspension 1 spray INTRANASAL QDAY 08/14 [History Confirmed 06/09/18 Last Taken Unknown] oxycodone 5 mg tablet 5 mg PO Q4H PRN tab 09/07/17 [History Confirmed 06/09/18 Last Taken Unknown] gabapentin 300 mg capsule 300 mg PO HS cap 09/16/17 [History Confirmed Last Taken Unknown] tamsulosin 0.4 mg capsule 0.4 mg PO BID cap 09/16/17 [History Confirmed Last Taken 06/07/18 21:00] buspirone PO PRN 12/22/17 [History Confirmed 06/02/18 Last Taken Unknown] bupropion HCl 100 mg tablet 100 mg PO BID PRN 04/22/18 [History Confirmed Last Taken Unknown] sodium bicarbonate 650 mg tablet 650 mg PO BID PRN tab 04/22/18 [History Confirmed 06/09/18 Last Taken Unknown] Medical - DS: Hosp Hospital course: Mr. He is a 82 year old M 82yoF with chronic kidney disease stage IV obesity obstructive sleep apnea hypertension diabetes who who had been on 80 of Lasix twice daily. Stopped taking his diuretics about a week ago. Was seen by his palliative care specialist who recommended him come to the hospital for IV diuresis given his anasarca he refused at that time if no risks were explained to him. He did end up going up to his primary care facility [facility] he did get sounds like torsemide which he says "shut him down he did not urinate at all and then he was put on Lasix did not seem to have much response in the past couple days without the diuretic started urinating more per his he put out 1101-day 1100 the next day and 1400 yesterday. He did not want to come down yesterday because of he had some diarrhea which is resolved but agreed to come down today to be admitted for IV diuresis. The diarrhea is essentially resolved sounds like he has been dealing with intermittent constipation diarrhea this year, believes he may have IBS. He has some nausea he has got a chronic cough which is been dry for about 2 weeks he has some nasal congestion. But otherwise no chest pain or shortness of breath. He is very weak he typically is a cane but is been wheelchair-bound this past week. He states his dry weight is around 270 but because of the fluid accumulation he says he is around 300 pounds. He has increased swelling in his lower extremities to his scrotum and abdomen. 06/09 Slept poorly last night. Typically sleeps in a recliner for 15 years. With the bed last night felt was uncomfortable and developed some orthopnea with it. He has some chills and a little bit of nausea with breakfast, he has a mild cough with some clear sputum. No shortness of breath currently in his upright chair no chest pain abdominal pain. A lot of edema still in the legs to the abdomen. Intermittent diarrhea and constipation. 06/10 Little better last night. Does have some nausea and chills. Still very edematous, weak. Mild occasional cough. 06/11 Occasional headache, some shortness of breath. Continued edema. 06/12 CO2 retention last night on pt's as pt noncompliant with his own cpap, changed to our machine for auto-pressures but still was taking it off. HD yesterday with 2L's removed. 06/13 Pt seen examined, was confused yesterday after dialysis, but no other comp.marci cain shows ph 7.35/48/72 Pt still on 2 L oxgyen, CXR shwos left pleural effusion, bibasilar infiltrates making dark urine, by bedside. denies any complaints this AM 06/14 pt seen examined, no acute ovenright events yesterday pm noted that he cannot hear after hd, discussed with Dr Herrera , unlikely HD is causing this, reviewed his ears, some wax in the left year, but no discharge, righ ear tm intact, dull appearing. he has marilyn chr hearing SNL loss, and uses hearing aids, advised to talk with his ENT doctor. he has chr tinnitus, but no acute worsening, no headaches. this am he is doing well, no new complaints HD planned today, xfer to med surg status. 06/15 Pt seen examined, no acute issues, tolerating hd ok, get very fatigued after the process, plan for SNF placement concerned about going home given his weakness needs 2 L oxyen when sleeps otherwise well lungs sound better neg [id number] since admission 06/16 Pt seen examined doing well, labs stable pt deneis any complaints feels breathing is good, says not good, pt looks comfortable, needs oxygen at night due to [place]. Neg 16L since admission, lungs clear plan for D/c today on hold due to SNF not having a bed ready, HD today, and tomorrow(tomorrow would be his scheduled day), anticipate d/c after HD tomorrow if pt remains stable. 06/17 Pt seen examined, no acute overnight issues, pt tolerating po diet well, no chest pain no shortness of breath Some sleep issues which are chronic. Pt undergoing HD Planned d/c today ,but on hold due to non availability of bed at Rehab center. 06/18 Transferring to swing bed. Unable to place today to rehab. Discharge diagnosis: Renal failure bladder outlet obstruction obstructive sleep apnea respirator Secondary discharge diagnosis: Pneumonia urinary tract infection morbid obesity diabetes hypertension - Time Spent with Patient Total time spent providing and/or coordinating discharge services: Greater than 30 minutes Medical - DS: Exam - Constitutional Vitals: Vital Signs Temp Pulse Pulse Resp BP BP Pulse Ox 06/17/18 11:59 97.8 F 68 18 126/70 97 06/17/18 11:44 97.8 F 68 126/70 06/17/18 11:06 99.3 F H 60 124/57 06/17/18 10:37 99.3 F H 62 134/74 06/17/18 10:06 99.5 F H 67 118/58 06/17/18 09:44 79 103/46 06/17/18 09:33 99.0 F 79 99/48 06/17/18 09:13 99.9 F H 74 114/63 06/17/18 07:22 99.5 F H 64 18 163/63 92 06/17/18 06:00 100.0 F H 72 138/61 06/17/18 03:49 98.4 F 63 20 142/65 94 06/17/18 00:00 98.5 F 74 20 147/66 97 06/16/18 20:00 97.4 F 61 20 138/64 98 06/16/18 15:39 97.7 F 66 18 135/53 92 Intake and Output 06/16/18 06/17/18 06/17/18 21:59 05:59 13:59 Intake Total 643 / 643 50 / 50 360 / 360 Output Total 275 / 275 3900 / 3900 Balance 643 / 643 -225 / -225 -3540 / -3540 Intake: Oral 643 / 643 50 / 50 360 / 360 Output: Void Amount 275 / 275 Hemodialysis UF 3900 / 3900 Other: Meal Dinner Lunch Percent of Meal Consumed 100% 75% Feeding Ability Independent Independent Urine Appearance Clear Uretheral (Wiseman) Cloudy Urine Color Dark Beatris Uretheral (Wiseman) Tea Colored Urine Odor Normal Stool Size Small Small Stool Consistency Dry and Hard Dry and Hard # Bowel Movements 1 1 Weight 121.88 kg 121.88 kg Patient Weight 06/18/18 05:59 Weight 121.88 kg Medical - DS: Data Labs on day of discharge: Labs from last 24 hours 06/17/18 06/17/18 06/16/18 04:55 04:55 04:15 WBC 8.6 RBC 3.32 L Hgb 10.3 L Hct 30.8 L MCV 92.5 MCH 30.9 MCHC 33.4 RDW 14.1 Plt Count 161 MPV 9.5 Gran % 52.3 Lymph % (Auto) 9.8 L [place] % (Auto) 7.8 Eos % (Auto) 29.8 H Baso % (Auto) 0.3 Gran # 4.5 Lymph # (Auto) 0.8 L [place] # (Auto) 0.7 Eos # (Auto) 2.6 H Baso # (Auto) 0 Sodium 135 Potassium 4.6 Chloride 102 Carbon Dioxide 23 Anion Gap 10.0 BUN 35 H Creatinine 5.4 H* GFR Calculation 9 Glucose 102 Uric Acid 5.8 Calcium 8.2 L Phosphorus 3.5 Magnesium 2.2 Total Bilirubin 0.3 Direct Bilirubin < 0.2 GGT 43 AST 26 ALT 21 Alkaline Phosphatase 118 H Lactate Dehydrogenase 252 H Total Protein 6.1 Albumin 2.7 L Globulin 3.4 Albumin/Globulin Ratio 0.8 L Triglycerides 92 Free [place] LC, Quant 189.87 H Free [place] LC, Quant 74.84 H Free [place]/Lambda Ratio 2.537 H Medical - DS: A/P - Patient/Caregiver Discharge Instructions Activity: as per physical therapy Diet: Renal/Consistent Carbs - Follow up Plan Disposition: Xfer As Swing Bed ([facility]) Prognosis: Fair Rehab Potential: Fair I certify that the patient requires SNF services: Yes Medical - DS: Qual - VTE Deep Vein Thrombosis/Pulmonary Embolism Present on Admission: No
[2018-06-17] MEDS: FAMOTIDINE 20 MG TABLET PO SCH (20:10)
[2018-06-18 05:13] LABS: Basophils # (Auto) 0 K/mcL (0.0-0.3); Basophils % (Auto) 0.2 % (0.0-2.0); Eosinophils # (Auto) 1.9 K/mcL (0.0-0.7); Eosinophils % (Auto) 21.1 % (0.0-7.0); Granulocytes % (Auto) 56.4 % (38.0-78.0); Lymphocytes # (Auto) 1.2 K/mcL (1.5-4.8); Lymphocytes % (Auto) 13.3 % (15.5-49.0); Mean Cell Volume 91.8 fL (80.0-100.0); Mean Corpuscular HGB Conc 33.4 g/dL (31.0-36.0); Mean Corpuscular Hemoglobin 30.6 pg (26.0-34.0); Monocytes # (Auto) 0.8 K/mcL (0.1-0.9); Platelet Count 181 K/mcL (140-440); RBC 3.41 M/mcL (4.50-5.90); Red Cell Distribution Width 14.3 % (11.5-14.5)
[2018-06-18 05:34] LABS: ALT/SGPT 24 U/l (0-40); Albumin 2.6 gm/dL (3.2-5.2); Albumin/Globulin Ratio 0.8 (1.0-2.3); Alkaline Phosphatase 122 U/L (39-117); Bilirubin,Direct < 0.2 mg/dL (0.0-0.3); Blood Urea Nitrogen 25 mg/dl (8-23); Gamma Glutamyl Transpeptidase 46 U/L (8-61); Uric Acid 4.4 mg/dL (2.5-8.0)
--- NOTE | 2018-06-18 06:30 | Nephrology Progress Note ---
Subjective Patient information: Note initiated : 06/18/18 at 6:27 am Maria Isabel He is an 82-year-old male with chronic kidney disease stage 4 admitted on 06/08/18. Chief Complaint: Fluid overload Principal diagnosis: End stage renal disease requiring chronic hemodialysis initiation Interval history: Chronic hemodialysis initiation after tunneled right IJ hemodialysis catheter placement at [facility] on 06/11/18 Pertinent ROS: No confusion No shortness of breath, using 2 L/min NC at night Wiseman catheter Scrotal edema Leg edema Constipation Objective - Vital Signs Vital signs: Vital Signs Temp Pulse Pulse Resp BP BP BP 06/18/18 03:25 98.0 F 65 20 144/62 06/18/18 00:25 98.9 F 65 20 149/56 06/17/18 19:57 99.1 F H 78 22 152/61 06/17/18 16:00 98.4 F 80 19 141/83 06/17/18 11:59 97.8 F 68 18 126/70 06/17/18 11:44 97.8 F 68 126/70 06/17/18 11:06 99.3 F H 60 124/57 06/17/18 10:37 99.3 F H 62 134/74 06/17/18 10:06 99.5 F H 67 118/58 06/17/18 09:44 79 103/46 06/17/18 09:33 99.0 F 79 99/48 06/17/18 09:13 99.9 F H 74 114/63 06/17/18 08:00 80 19 06/17/18 07:22 99.5 F H 64 18 163/63 Pulse Ox 06/18/18 03:25 96 06/18/18 00:25 97 06/17/18 19:57 93 06/17/18 16:00 94 06/17/18 11:59 97 06/17/18 11:44 06/17/18 11:06 06/17/18 10:37 06/17/18 10:06 06/17/18 09:44 06/17/18 09:33 06/17/18 09:13 06/17/18 08:00 96 06/17/18 07:22 92 Intake and Output 06/17/18 06/18/18 06/18/18 21:59 05:59 13:59 Intake Total 340 / 340 180 / 180 Output Total 200 / 200 Balance 340 / 340 -20 / -20 Intake: Oral 340 / 340 180 / 180 Output: Urine Catheter Amount 200 / 200 Other: Percent of Meal Consumed 75% Urine Appearance Cloudy Uretheral (Wiseman) Cloudy Urine Color Tea Colored Uretheral (Wiseman) Tea Colored Weight 259 lb 3.2 oz Intake & Output: Intake & Output 06/17/18 06/18/18 06/18/18 21:59 05:59 13:59 Intake Total 340 / 340 180 / 180 Output Total 200 / 200 Balance 340 / 340 -20 / -20 Weight 259 lb 3.2 oz Intake: Oral 340 / 340 180 / 180 Output: Urine Catheter Amount 200 / 200 Other: Percent of Meal Consumed 75% Urine Appearance Cloudy Uretheral (Wiseman) Cloudy Urine Color Tea Colored Uretheral (Wsieman) Tea Colored - General Appearance General appearance: chronically ill, fatigue EENT: mucous membranes dry Respiratory: clear Cardiology: edema Gastrointestinal: no tenderness Integumentary: chronic venous stasis Neurologic: no focal deficit, alert and oriented x3 Musculoskeletal: no deformities Psychiatric: mood/affect appropriate, cooperative - Lab 06/18/18 04:10 06/18/18 04:10 Most recent lab results Calcium 8.1 mg/dl (8.6-10.4) L 06/18/18 04:10 Phosphorus 3.0 mg/dL (2.7-4.5) 06/18/18 04:10 Magnesium 2.0 mg/dL (1.6-2.5) 06/18/18 04:10 Assessment and Plan (1) ESRD (end stage renal disease) on dialysis Maria Isabel He is an 82-year-old male admitted on 06/08/18. End stage renal disease with uremia and intractable fluid overload which did not respond to diuresis requiring chronic hemodialysis initiation, present on arrival. Work up: Urinalysis on 06/08/18: Yellow, turbid, pH 5.0, SG 1.015, protein >500, occult blood 0.2, leukocyte esterase 500 Urine culture on 06/08/18: E Coli US Renal on 06/09/18: Severe hydronephrosis. Distended urinary bladder Progress: Tunneled right IJ hemodialysis catheter placed at [facility] on 06/11/18 Daily hemodialysis since 06/11/18 for fluid overload. Urine output: 200 ml reported in the past 24 hours Plan: 3 hour hemodialysis with 3.5 kg UF target Outpatient hemodialysis set up at [facility] unit for TTS for ESRD. The patient seen and evaluated during hemodialysis at 9:35. Status: Chronic Priority: Medium (2) Fluid overload, unspecified Improving with hemodialysis ultrafiltration; lost 52 lbs so far Status: Acute Priority: High Qualifiers: Hypervolemia type: other Qualified Code(s): E87.79 - Other fluid overload
[2018-06-18] MEDS: INSULIN LISPRO 1 UNIT/0.01 ML UNIT SQ SCH ×3 (07:15→16:25)
[2018-06-18] MEDS: 0.9 % SODIUM CHLORIDE 10 ML SYRINGE IV SCH ×2 (07:15→13:17)
[2018-06-18] MEDS ORDERED: FLEETS ADULT ENEMA PR PRN (08:12)
[2018-06-18] MEDS ORDERED: MAGNESIUM HYDROXIDE 30 ML ORAL.SUSP PO PRN (08:12)
[2018-06-18] MEDS ORDERED: BISACODYL 10 MG SUPP.RECT PR PRN (08:12)
--- NOTE | 2018-06-18 08:55 | Internal Med Progress Note ---
Medical - PN: Subj Patient information: Note initiated : 06/18/18 at 8:49 am Service Date, if different from initiated Date: [] Patient: Maria Isabel He 82 y/o M admitted on 06/08/18 for Fluid Overload, Acute Kidney Injury. Chief Complaint: [] Interval history: 82yoF with chronic kidney disease stage IV obesity obstructive sleep apnea hypertension diabetes who who had been on 80 of Lasix twice daily. Stopped taking his diuretics about a week ago. Was seen by his tie man who recommended him come to the hospital for IV diuresis given his anasarca he refused at that time if no risks were explained to him. He did end up going up to his primary care facility [facility] he did get sounds like torsemide which he says "shut him down he did not urinate at all and then he was put on Lasix did not seem to have much response in the past couple days without the diuretic started urinating more per his he put out 1101-day 1100 the next day and 1400 yesterday. He did not want to come down yesterday because of he had some diarrhea which is resolved but agreed to come down today to be admitted for IV diuresis. The diarrhea is essentially resolved sounds like he has been dealing with intermittent constipation diarrhea this year, believes he may have IBS. He has some nausea he has got a chronic cough which is been dry for about 2 weeks he has some nasal congestion. But otherwise no chest pain or shortness of breath. He is very weak he typically is a cane but is been wheelchair-bound this past week. He states his dry weight is around 270 but because of the fluid accumulation he says he is around 300 pounds. He has increased swelling in his lower extremities to his scrotum and abdomen. 06/09 Slept poorly last night. Typically sleeps in a recliner for 15 years. With the bed last night felt was uncomfortable and developed some orthopnea with it. He has some chills and a little bit of nausea with breakfast, he has a mild cough with some clear sputum. No shortness of breath currently in his upright chair no chest pain abdominal pain. A lot of edema still in the legs to the abdomen. Intermittent diarrhea and constipation. 06/10 Little better last night. Does have some nausea and chills. Still very edematous, weak. Mild occasional cough. 06/11 Occasional headache, some shortness of breath. Continued edema. 06/12 CO2 retention last night on pt's as pt noncompliant with his own cpap, changed to our machine for auto-pressures but still was taking it off. HD yesterday with 2L's removed. no new complaints, pt will "to try" bipap for short period of time. no new complaints, denies dyspnea currently, occasional cough. 06/13 Pt seen examined, was confused yesterday after dialysis, but no other comp.marci cain shows ph 7.35/48/72 Pt still on 2 L oxgyen, CXR shwos left pleural effusion, bibasilar infiltrates making dark urine, by bedside. denies any complaints this AM 06/14 pt seen examined, no acute ovenright events yesterday pm noted that he cannot hear after hd, discussed with Dr Herrera , unlikely HD is causing this, reviewed his ears, some wax in the left year, but no discharge, righ ear tm intact, dull appearing. he has marilyn chr hearing SNL loss, and uses hearing aids, advised to talk with his ENT doctor. he has chr tinnitus, but no acute worsening, no headaches. this am he is doing well, no new complaints HD planned today, xfer to med surg status. 06/15 Pt seen examined, no acute issues, tolerating hd ok, get very fatigued after the process, plan for SNF placement concerned about going home given his weakness needs 2 L oxyen when sleeps otherwise well lungs sound better neg [id number] since admission 06/16 Pt seen examined doing well, labs stable pt deneis any complaints feels breathing is good, says not good, pt looks comfortable, needs oxygen at night due to [place]. Neg 16L since admission, lungs clear plan for D/c today on hold due to SNF not having a bed ready, HD today, and tomorrow(tomorrow would be his scheduled day), anticipate d/c after HD tomorrow if pt remains stable. 06/17 Pt seen examined, no acute overnight issues, pt tolerating po diet well, no chest pain no shortness of breath Some sleep issues which are chronic. Pt undergoing HD Planned d/c today ,but on hold due to non availability of bed [facility]. 9/21 No issues overnight. slept well, no new complaints other than constipated. edema improving. Review of Systems: denies headache/fever/chills/nausea/vomiting/chest or abdominal pain/cough/ dyspnea/diarrhea. Otherwise see above. - Constitutional Vitals: Vital Signs Temp Pulse Resp BP Pulse Ox 98.0 F 65 20 144/62 96 06/18/18 03:25 06/18/18 03:25 06/18/18 03:25 06/18/18 03:25 06/18/18 03:25 Period Temp Pulse Resp BP Sys/Adkins Pulse Ox Last 24 Hr 97.8 F-99.9 F 60-80 18-22 99-152/46-83 93-97 Intake and Output 06/17/18 06/18/18 06/18/18 21:59 05:59 13:59 Intake Total 340 / 340 180 / 180 Output Total 200 / 200 Balance 340 / 340 -20 / -20 Weight 117.571 kg Intake & Output: Intake & Output 06/17/18 06/18/18 06/18/18 21:59 05:59 13:59 Intake Total 340 / 340 180 / 180 Output Total 200 / 200 Balance 340 / 340 -20 / -20 Weight 117.571 kg Intake: Oral 340 / 340 180 / 180 Output: Urine Catheter Amount 200 / 200 Other: Percent of Meal Consumed 75% Urine Appearance Cloudy Uretheral (Narayanan) Cloudy Urine Color Tea Colored Uretheral (Narayanan) Tea Colored Exam: General: Alert, Awake, No acute Distress HEENT: EOMI, CV: RRR, 1/6 SM, Pulm: Diminished bilateral bases, no rales/wheezing Abd: soft, nontender, +BS x4, obese Ext: no clubbing/cyanosis, Edema continues to improving Neuro: Alert, no focal deficits, moves all extremities Skin: warm/dry Medical - PN: Obj Da - Labs CBC & Chem 7: 06/18/18 04:10 06/18/18 04:10 Labs: Abnormal Lab Results 06/18/18 06/18/18 06/17/18 04:10 04:10 04:55 RBC 3.41 L Hgb 10.4 L Hct 31.3 L Lymph % (Auto) 13.3 L Eos % (Auto) 21.1 H Lymph # (Auto) 1.2 L Eos # (Auto) 1.9 H Haptoglobin BUN 25 H 35 H Creatinine 4.5 H 5.4 H* Glucose Calcium 8.1 L 8.2 L Alkaline Phosphatase 122 H 118 H Lactate Dehydrogenase 252 H Albumin 2.6 L 2.7 L Albumin/Globulin Ratio 0.8 L 0.8 L Free [place] LC, Quant Free Lambda LC, Quant Free [place]/Lambda Ratio 06/17/18 06/16/18 06/16/18 04:55 04:15 04:15 RBC 3.32 L Hgb 10.3 L Hct 30.8 L Lymph % (Auto) 9.8 L Eos % (Auto) 29.8 H Lymph # (Auto) 0.8 L Eos # (Auto) 2.6 H Haptoglobin BUN 42 H Creatinine 5.4 H* Glucose 120 H Calcium 8.1 L Alkaline Phosphatase 134 H Lactate Dehydrogenase Albumin 2.7 L Albumin/Globulin Ratio 0.8 L Free [place] LC, Quant 189.87 H Free Lambda LC, Quant 74.84 H Free [place]/Lambda Ratio 2.537 H 06/16/18 06/15/18 04:15 13:22 RBC 3.57 L Hgb 10.9 L Hct 32.7 L Lymph % (Auto) 9.8 L Eos % (Auto) 27.9 H Lymph # (Auto) 0.9 L Eos # (Auto) 2.6 H Haptoglobin 255 H BUN Creatinine Glucose Calcium Alkaline Phosphatase Lactate Dehydrogenase Albumin Albumin/Globulin Ratio Free [place] LC, Quant Free Lambda LC, Quant Free [place]/Lambda Ratio Meds: Medications Albuterol/Ipratropium (Duoneb) 3 ml NEB Q4HRT PRN PRN Reason: Dyspnea Artificial Tears (Artificial Tears Ophth Drops) 1 gtt OU 4-6XD PRN PRN Reason: Dry Eye(s) Bisacodyl (Dulcolax) 10 mg WV Q2-3DAYS PRN PRN Reason: Constipation Bupropion HCl (Wellbutrin) 100 mg PO BIDP PRN PRN Reason: ANXIETY/SEDATION Calcium Carbonate/Glycine (Tums) 500 mg PO Q4HP PRN PRN Reason: Indigestion Dextrose (Dextrose 50%) 0 ml IV UD PRN PRN Reason: Hypoglycemia Diagnostic Test (Pha) (Accu-Chek) 1 each FS ACHS MARCOS Last Admin: 06/18/18 07:12 Dose: 1 each Docusate Sodium (Colace) 100 mg PO TID [facility] Last Admin: 06/17/18 20:10 Dose: 100 mg Famotidine (Pepcid) 20 mg PO HS [facility] Last Admin: 06/17/18 20:10 Dose: 20 mg Finasteride (Proscar) 5 mg PO QDAY [facility] Last Admin: 06/17/18 12:00 Dose: 5 mg Fluticasone Propionate (Flonase) 1 spray NS DAILY [facility] Last Admin: 06/17/18 12:02 Dose: Not Given Glucose (Insta-Glucose) 15 gm PO PRN PRN PRN Reason: Hypoglycemia Heparin Sodium (Porcine) (Heparin) 5,000 unit SQ Q12 [facility] Last Admin: 06/17/18 20:10 Dose: 5,000 unit Levofloxacin (Levaquin) 500 mg in 100 mls @ 100 mls/hr IV Q48H [facility] Last Admin: 06/17/18 12:00 Dose: 100 mls/hr Insulin Human Lispro (Humalog) 0 unit SQ ACHS [facility]; Protocol Last Admin: 06/18/18 07:15 Dose: Not Given Magnesium Hydroxide (Milk Of Magnesia) 30 ml PO DAILYP PRN PRN Reason: Constipation Ondansetron HCl (Zofran) 4 mg IV Q4HP PRN PRN Reason: Nausea And Vomiting Last Admin: 06/15/18 03:10 Dose: 4 mg Oxycodone HCl (Roxicodone) 5 mg PO Q4H PRN PRN Reason: PAIN LEVEL > 6 Last Admin: 06/14/18 21:41 Dose: 5 mg Albuterol [Proair (Respiclick] Inhaler) 1 dose INH Q6HP PRN PRN Reason: Shortness Of Breath Polyethylene Glycol (Miralax) 17 gm PO DAILY [facility] Last Admin: 06/17/18 12:08 Dose: Not Given Sodium Bicarbonate (Sodium Bicarbonate) 650 mg PO BID PRN PRN Reason: Indigestion Sodium Biphosphate/Sodium Phosphate (Fleets Adult) 1 dose WV Q3-4DAYS PRN PRN Reason: Constipation Sodium Chloride (Saline Flush) 10 ml IV Q8 [facility] Last Admin: 06/18/18 07:15 Dose: 10 ml Tamsulosin HCl (Flomax) 0.4 mg PO BID [facility] Last Admin: 09/20/18 20:10 Dose: 0.4 mg Trazodone HCl (Desyrel) 50 mg PO HSP PRN PRN Reason: Insomnia Medical - PN: A/P - Time Spent With Patient Total time spent is greater than 50% in coordination of care (as documented) at patient's floor/unit and/or counseling patient: - Narrative A/P Narrative: A: *Anasarca: Medication noncompliance -improving s/p initiating of HD, unresponsive to Lasix drip on admit *PAUL on CKD IV: Follows Dr. 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 coli): leukocytosis resolved *PNA: *Acute respiratory failure with hypercapnia: 2/2 volume overload, [place] with noncompliance of noninvasive ventilation device -on 2L NC *Morbid obesity: *[place]: notes home cpap does not work well, causing blisters? will refer to pulm as outpatient. *Diabetes: *Hypertension: *Depression/anxiety: *Chronic low back pain *constipation P: -Nephrology following -HD per Nephro -Strict I's and O's and daily weights -Continue home medications -abx -Compression wraps lower extremities -o2, f/u outpt with pulm -Sliding scale insulin -pt/ot -Continue home medications -bowel regimen -ppx: Heparin Medical - PN: Qual - VTE Deep Vein Thrombosis/Pulmonary Embolism Present on Admission: No
[2018-06-18] MEDS ORDERED: LACTULOSE 20 GM/30 ML ORAL.SOL PO PRN (09:02)
[2018-06-18] MEDS ORDERED: LACTULOSE 20 GM/30 ML ORAL.SOL PO ONE (09:02)
[2018-06-18 09:38] LABS: Albumin PEP 2.53 gm/dl (3.1-4.7)
[2018-06-18] MEDS: POLYETHYLENE GLYCOL 3350 17 GM PACKET PO SCH (13:15)
[2018-06-18] MEDS: HEPARIN 5,000 UNIT/ML VIAL SQ SCH (13:16)
[2018-06-18] MEDS: FLUTICASONE PROPIONATE SPRAY.NAS NS SCH (13:16)
[2018-06-18] MEDS: DOCUSATE SODIUM 100 MG CAPSULE PO SCH ×2 (13:16→16:22)
[2018-06-18] MEDS: FINASTERIDE 5 MG TABLET PO SCH (13:16)
[2018-06-18] MEDS: TAMSULOSIN 0.4 MG CAPSULE PO SCH (13:17)
== END 2018-06-18 16:31 | disposition swing bed (61) | DRG 682 ==
LOC: ICU 16:15 → MEDSUR 06-14 15:50
PROVIDERS: ADMIT Internal Medicine; ATTEND Internal Medicine

== ENCOUNTER 2018-06-18 15:42 | Inpatient (IN) ==
[2018-06-18] MEDS ORDERED: FLEETS ADULT ENEMA PR PRN (16:52)
[2018-06-18] MEDS ORDERED: traZODone HCL 50 MG TABLET PO PRN (16:52)
[2018-06-18] MEDS ORDERED: oxyCODONE HCL 5 MG TABLET PO PRN (16:52)
[2018-06-18] MEDS ORDERED: buPROPion 100 MG TABLET PO PRN (16:52)
[2018-06-18] MEDS ORDERED: ONDANSETRON 4 MG/2 ML VIAL IV PRN (16:52)
[2018-06-18] MEDS ORDERED: IPRATROPIUM/ALBUTEROL 3 ML AMPUL.NEB NEB PRN (16:52)
[2018-06-18] MEDS ORDERED: ALBUTEROL INH PRN (16:52)
[2018-06-18] MEDS ORDERED: MAGNESIUM HYDROXIDE 30 ML ORAL.SUSP PO PRN (16:52)
[2018-06-18] MEDS ORDERED: LACTULOSE 20 GM/30 ML ORAL.SOL PO PRN (16:52)
[2018-06-18] MEDS ORDERED: DEXTROSE 31 GM ORAL.SUSP PO PRN (16:52)
[2018-06-18] MEDS ORDERED: POLYVINYL ALCOHOL OPHTH DROPS 15ML BOTTLE OU PRN (16:52)
[2018-06-18] MEDS ORDERED: SODIUM BICARBONATE 650 MG TABLET PO PRN (16:52)
[2018-06-18] MEDS ORDERED: BISACODYL 10 MG SUPP.RECT PR PRN (16:52)
[2018-06-18] MEDS ORDERED: DEXTROSE 50% 50 ML VIAL IV PRN (16:52)
[2018-06-18] MEDS ORDERED: CALCIUM CARBONATE 500 MG TAB.CHEW PO PRN (16:52)
[2018-06-18] MEDS: INSULIN LISPRO 1 UNIT/0.01 ML UNIT SQ SCH ×2 (17:22→20:52)
[2018-06-18] MEDS: 0.9 % SODIUM CHLORIDE 10 ML SYRINGE IV SCH (20:27)
[2018-06-18] MEDS: FAMOTIDINE 20 MG TABLET PO SCH (20:46)
[2018-06-18] MEDS: DOCUSATE SODIUM 100 MG CAPSULE PO SCH (20:46)
[2018-06-18] MEDS: TAMSULOSIN 0.4 MG CAPSULE PO SCH (20:46)
[2018-06-18] MEDS: HEPARIN 5,000 UNIT/ML VIAL SQ SCH (20:46)
[2018-06-19] MEDS: 0.9 % SODIUM CHLORIDE 10 ML SYRINGE IV SCH ×3 (06:31→20:45)
[2018-06-19] MEDS: INSULIN LISPRO 1 UNIT/0.01 ML UNIT SQ SCH ×4 (06:31→20:44)
--- NOTE | 2018-06-19 07:50 | Internal Med Progress Note ---
Medical - PN: Subj Patient information: Note initiated : 06/19/18 at 7:46 am Service Date, if different from initiated Date: [] Patient: Maria Isabel He 82 y/o M admitted on 06/18/18 for continued observation. Chief Complaint: [] Interval history: [facility] NAME: Maria Isabel He Interval history: 82yoF with chronic kidney disease stage IV obesity obstructive sleep apnea hypertension diabetes who who had been on 80 of Lasix twice daily. Stopped taking his diuretics about a week ago. Was seen by his replenishment merchandising associate who recommended him come to the hospital for IV diuresis given his anasarca he refused at that time if no risks were explained to him. He did end up going up to his primary care facility [facility] he did get sounds like torsemide which he says "shut him down he did not urinate at all and then he was put on Lasix did not seem to have much response in the past couple days without the diuretic started urinating more per his he put out 1101-day 1100 the next day and 1400 yesterday. He did not want to come down yesterday because of he had some diarrhea which is resolved but agreed to come down today to be admitted for IV diuresis. The diarrhea is essentially resolved sounds like he has been dealing with intermittent constipation diarrhea this year, believes he may have IBS. He has some nausea he has got a chronic cough which is been dry for about 2 weeks he has some nasal congestion. But otherwise no chest pain or shortness of breath. He is very weak he typically is a cane but is been wheelchair-bound this past week. He states his dry weight is around 270 but because of the fluid accumulation he says he is around 300 pounds. He has increased swelling in his lower extremities to his scrotum and abdomen. 06/09 Slept poorly last night. Typically sleeps in a recliner for 15 years. With the bed last night felt was uncomfortable and developed some orthopnea with it. He has some chills and a little bit of nausea with breakfast, he has a mild cough with some clear sputum. No shortness of breath currently in his upright chair no chest pain abdominal pain. A lot of edema still in the legs to the abdomen. Intermittent diarrhea and constipation. 06/10 Little better last night. Does have some nausea and chills. Still very edematous, weak. Mild occasional cough. 06/11 Occasional headache, some shortness of breath. Continued edema. 06/12 CO2 retention last night on pt's as pt noncompliant with his own cpap, changed to our machine for auto-pressures but still was taking it off. HD yesterday with 2L's removed. no new complaints, pt will "to try" bipap for short period of time. no new complaints, denies dyspnea currently, occasional cough. 06/13 Pt seen examined, was confused yesterday after dialysis, but no other comp.laiisabellas ABG ant shows ph 7.35/48/72 Pt still on 2 L oxgyen, CXR shwos left pleural effusion, bibasilar infiltrates making dark urine, by bedside. denies any complaints this AM 06/14 pt seen examined, no acute ovenright events yesterday pm noted that he cannot hear after hd, discussed with Dr Herrera , unlikely HD is causing this, reviewed his ears, some wax in the left year, but no discharge, righ ear tm intact, dull appearing. he has marilyn chr hearing SNL loss, and uses hearing aids, advised to talk with his ENT doctor. he has chr tinnitus, but no acute worsening, no headaches. this am he is doing well, no new complaints HD planned today, xfer to med surg status. 06/15 Pt seen examined, no acute issues, tolerating hd ok, get very fatigued after the process, plan for SNF placement concerned about going home given his weakness needs 2 L oxyen when sleeps otherwise well lungs sound better neg [id number] since admission 06/16 Pt seen examined doing well, labs stable pt deneis any complaints feels breathing is good, says not good, pt looks comfortable, needs oxygen at night due to [place]. Neg 16L since admission, lungs clear plan for D/c today on hold due to SNF not having a bed ready, HD today, and tomorrow(tomorrow would be his scheduled day), anticipate d/c after HD tomorrow if pt remains stable. 06/17 Pt seen examined, no acute overnight issues, pt tolerating po diet well, no chest pain no shortness of breath Some sleep issues which are chronic. Pt undergoing HD Planned d/c today ,but on hold due to non availability of bed at [facility]hab center. 06/18 No issues overnight. slept well, no new complaints other than constipated. edema improving. 06/19 Given bowel regimen after hemodialysis yesterday with good results. No issues overnight. Lower extremities edema is much improved he now is able to wear his shoes. Review of Systems: denies headache/fever/chills/nausea/vomiting/chest or abdominal pain/cough/ dyspnea, Otherwise see above. - Constitutional Vitals: Vital Signs Temp Pulse Resp BP Pulse Ox 98.7 F 62 20 124/62 94 06/19/18 06:43 06/18/18 20:45 06/19/18 06:43 06/19/18 06:43 06/19/18 06:43 Period Temp Pulse Resp BP Sys/Adkins Pulse Ox Last 24 Hr 98.3 F-98.7 F 62-62 20-20 124-137/62-66 93-94 Intake and Output 06/18/18 06/19/18 06/19/18 21:59 05:59 13:59 Intake Total 270 / 270 120 / 120 Output Total 0 / 0 Balance 270 / 270 120 / 120 Weight 115.122 kg Intake & Output: Intake & Output 06/18/18 06/19/18 06/19/18 21:59 05:59 13:59 Intake Total 270 / 270 120 / 120 Output Total 0 / 0 Balance 270 / 270 120 / 120 Weight 115.122 kg Intake: Oral 270 / 270 120 / 120 Output: Void Amount 0 / 0 Other: Meal peaches cup of peaches Percent of Meal Consumed 100% 50% Feeding Ability Independent Urine Appearance Uretheral (Narayanan) Sediment Urine Color Uretheral (Narayanan) Tea Colored Stool Size Small Small Stool Color Brown Stool Consistency Formed Exam: Exam: General: Alert, Awake, No acute Distress HEENT: EOMI, neck supple CV: RRR, 1/6 SM, Pulm: Diminished bilateral bases, no rales/wheezing Abd: soft, nontender, +BS x4, obese Ext: no clubbing/cyanosis, Edema continues to improving Neuro: Alert, no focal deficits, moves all extremities Skin: warm/dry Medical - PN: Obj Da - Labs Meds: Medications Albuterol/Ipratropium (Duoneb) 3 ml NEB Q4HRT PRN PRN Reason: Dyspnea Artificial Tears (Artificial Tears Ophth Drops) 1 gtt OU 4-6XD PRN PRN Reason: Dry Eye(s) Bisacodyl (Dulcolax) 10 mg MO Q2-3DAYS PRN PRN Reason: Constipation Bupropion HCl (Wellbutrin) 100 mg PO BIDP PRN PRN Reason: ANXIETY/SEDATION Calcium Carbonate/Glycine (Tums) 500 mg PO Q4HP PRN PRN Reason: Indigestion Dextrose (Dextrose 50%) 0 ml IV UD PRN PRN Reason: Hypoglycemia Diagnostic Test (Pha) (Accu-Chek) 1 each FS ACHS [facility] Last Admin: 06/19/18 06:30 Dose: 1 each Docusate Sodium (Colace) 100 mg PO TID [facility] Last Admin: 06/18/18 20:46 Dose: 100 mg Famotidine (Pepcid) 20 mg PO HS [facility] Last Admin: 06/18/18 20:46 Dose: 20 mg Finasteride (Proscar) 5 mg PO QDAY [facility] Fluticasone Propionate (Flonase) 1 spray NS DAILY [facility] Glucose (Insta-Glucose) 15 gm PO PRN PRN PRN Reason: Hypoglycemia Heparin Sodium (Porcine) (Heparin) 5,000 unit SQ Q12 [facility] Last Admin: 06/18/18 20:46 Dose: 5,000 unit Levofloxacin (Levaquin) 500 mg in 100 mls @ 100 mls/hr IV Q48H [facility] Insulin Human Lispro (Humalog) 0 unit SQ [facility]; Protocol Last Admin: 06/19/18 06:31 Dose: Not Given Lactulose (Cephulac) 10 gm PO BID PRN PRN Reason: Constipation Magnesium Hydroxide (Milk Of Magnesia) 30 ml PO DAILYP PRN PRN Reason: Constipation Ondansetron HCl (Zofran) 4 mg IV Q4HP PRN PRN Reason: Nausea And Vomiting Oxycodone HCl (Roxicodone) 5 mg PO Q4H PRN PRN Reason: PAIN LEVEL > 6 Albuterol [Proair (Respiclick] Inhaler) 1 dose INH Q6HP PRN PRN Reason: Shortness Of Breath Polyethylene Glycol (Miralax) 17 gm PO DAILY [facility] Sodium Bicarbonate (Sodium Bicarbonate) 650 mg PO BID PRN PRN Reason: Indigestion Sodium Biphosphate/Sodium Phosphate (Fleets Adult) 1 dose MO Q3-4DAYS PRN PRN Reason: Constipation Sodium Chloride (Saline Flush) 10 ml IV Q8 [facility] Last Admin: 06/19/18 06:31 Dose: 10 ml Tamsulosin HCl (Flomax) 0.4 mg PO BID [facility] Last Admin: 06/18/18 20:46 Dose: 0.4 mg Trazodone HCl (Desyrel) 50 mg PO HSP PRN PRN Reason: Insomnia Medical - PN: A/P - Time Spent With Patient Total time spent is greater than 50% in coordination of care (as documented) at patient's floor/unit and/or counseling patient: - Narrative A/P Narrative: A: *Anasarca: Medication noncompliance -much improved s/p initiating of HD, unresponsive to Lasix drip on admit *PAUL on CKD IV: Follows Dr. 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 coli): leukocytosis resolved *PNA: improved *Acute respiratory failure with hypercapnia: 2/2 volume overload, [place] with noncompliance of noninvasive ventilation device -on 2L NC *Morbid obesity: *[place]: notes home cpap does not work well, causing blisters? will refer to pulm as outpatient. *Diabetes: *Hypertension: *Depression/anxiety: *Chronic low back pain *constipation: P: -Nephrology following -HD per Nephro -Strict I's and O's and daily weights -Continue home medications -abx finish course -Compression wraps lower extremities -o2, f/u outpt with pulm -Sliding scale insulin -pt/ot -Continue home medications -bowel regimen -ppx: Heparin Medical - PN: Qual - VTE Deep Vein Thrombosis/Pulmonary Embolism Present on Admission: No
[2018-06-19] MEDS ORDERED: LEVOFLOXACIN 500 MG/100 ML BAG IV SCH (09:00)
[2018-06-19] MEDS: DOCUSATE SODIUM 100 MG CAPSULE PO SCH ×3 (13:20→20:45)
[2018-06-19] MEDS: FLUTICASONE PROPIONATE SPRAY.NAS NS SCH (13:20)
[2018-06-19] MEDS: HEPARIN 5,000 UNIT/ML VIAL SQ SCH ×2 (14:44→20:44)
[2018-06-19 15:03] LABS: Blood Urea Nitrogen 9 mg/dl (8-23)
[2018-06-19] MEDS: TAMSULOSIN 0.4 MG CAPSULE PO SCH ×2 (16:27→20:44)
[2018-06-19] MEDS: FINASTERIDE 5 MG TABLET PO SCH (17:29)
[2018-06-19] MEDS: POLYETHYLENE GLYCOL 3350 17 GM PACKET PO SCH ×2 (17:29→17:50)
[2018-06-19] MEDS: FAMOTIDINE 20 MG TABLET PO SCH (20:44)
[2018-06-20] MEDS: 0.9 % SODIUM CHLORIDE 10 ML SYRINGE IV SCH ×3 (05:47→21:19)
--- NOTE | 2018-06-20 07:27 | Internal Med Progress Note ---
Medical - PN: Subj Patient information: Note initiated : 06/20/18 at 7:26 am Service Date, if different from initiated Date: [] Patient: Maria Isabel He 82 y/o M admitted on 06/18/18 for continued observation. Chief Complaint: [] Interval history: [facility] NAME: Maria Isabel He Interval history: 82yoF with chronic kidney disease stage IV obesity obstructive sleep apnea hypertension diabetes who who had been on 80 of Lasix twice daily. Stopped taking his diuretics about a week ago. Was seen by his business process expert who recommended him come to the hospital for IV diuresis given his anasarca he refused at that time if no risks were explained to him. He did end up going up to his primary care facility [facility] he did get sounds like torsemide which he says "shut him down he did not urinate at all and then he was put on Lasix did not seem to have much response in the past couple days without the diuretic started urinating more per his he put out 1101-day 1100 the next day and 1400 yesterday. He did not want to come down yesterday because of he had some diarrhea which is resolved but agreed to come down today to be admitted for IV diuresis. The diarrhea is essentially resolved sounds like he has been dealing with intermittent constipation diarrhea this year, believes he may have IBS. He has some nausea he has got a chronic cough which is been dry for about 2 weeks he has some nasal congestion. But otherwise no chest pain or shortness of breath. He is very weak he typically is a cane but is been wheelchair-bound this past week. He states his dry weight is around 270 but because of the fluid accumulation he says he is around 300 pounds. He has increased swelling in his lower extremities to his scrotum and abdomen. 06/09 Slept poorly last night. Typically sleeps in a recliner for 15 years. With the bed last night felt was uncomfortable and developed some orthopnea with it. He has some chills and a little bit of nausea with breakfast, he has a mild cough with some clear sputum. No shortness of breath currently in his upright chair no chest pain abdominal pain. A lot of edema still in the legs to the abdomen. Intermittent diarrhea and constipation. 06/10 Little better last night. Does have some nausea and chills. Still very edematous, weak. Mild occasional cough. 06/11 Occasional headache, some shortness of breath. Continued edema. 06/12 CO2 retention last night on pt's as pt noncompliant with his own cpap, changed to our machine for auto-pressures but still was taking it off. HD yesterday with 2L's removed. no new complaints, pt will "to try" bipap for short period of time. no new complaints, denies dyspnea currently, occasional cough. 06/13 Pt seen examined, was confused yesterday after dialysis, but no other comp.laiisabellas ABG ant shows ph 7.35/48/72 Pt still on 2 L oxgyen, CXR shwos left pleural effusion, bibasilar infiltrates making dark urine, by bedside. denies any complaints this AM 06/14 pt seen examined, no acute ovenright events yesterday pm noted that he cannot hear after hd, discussed with Dr Herrera , unlikely HD is causing this, reviewed his ears, some wax in the left year, but no discharge, righ ear tm intact, dull appearing. he has marilyn chr hearing SNL loss, and uses hearing aids, advised to talk with his ENT doctor. he has chr tinnitus, but no acute worsening, no headaches. this am he is doing well, no new complaints HD planned today, xfer to med surg status. 06/15 Pt seen examined, no acute issues, tolerating hd ok, get very fatigued after the process, plan for SNF placement concerned about going home given his weakness needs 2 L oxyen when sleeps otherwise well lungs sound better neg [id number] since admission 06/16 Pt seen examined doing well, labs stable pt deneis any complaints feels breathing is good, says not good, pt looks comfortable, needs oxygen at night due to [place]. Neg 16L since admission, lungs clear plan for D/c today on hold due to SNF not having a bed ready, HD today, and tomorrow(tomorrow would be his scheduled day), anticipate d/c after HD tomorrow if pt remains stable. 06/17 Pt seen examined, no acute overnight issues, pt tolerating po diet well, no chest pain no shortness of breath Some sleep issues which are chronic. Pt undergoing HD Planned d/c today ,but on hold due to non availability of bed at Rehab center. 06/18 No issues overnight. slept well, no new complaints other than constipated. edema improving. 06/19 Given bowel regimen after hemodialysis yesterday with good results. No issues overnight. Lower extremities edema is much improved he now is able to wear his shoes. 06/20 Poor sleep last night. Diarrhea from bowel regimen. No other new issues. Review of Systems: denies headache/fever/chills/nausea/vomiting/chest or abdominal pain/cough/ dyspnea, Otherwise see above. - Constitutional Vitals: Vital Signs Temp Pulse Resp BP Pulse Ox 98.2 F 68 16 120/59 97 06/19/18 19:40 06/19/18 19:40 06/19/18 19:40 06/19/18 19:40 06/19/18 19:40 Period Temp Pulse Resp BP Sys/Adkins Pulse Ox Last 24 Hr 98.2 F 68 16 120/59 97 Intake and Output 06/19/18 06/20/18 06/20/18 21:59 05:59 13:59 Intake Total 860 / 860 100 / 100 Output Total 0 / 0 175 / 175 Balance 860 / 860 -75 / -75 Weight 113.035 kg Intake & Output: Intake & Output 06/19/18 06/20/18 06/20/18 21:59 05:59 13:59 Intake Total 860 / 860 100 / 100 Output Total 0 / 0 175 / 175 Balance 860 / 860 -75 / -75 Weight 113.035 kg Intake: Oral 860 / 860 100 / 100 Output: Urine Catheter Amount 0 / 0 175 / 175 Other: Meal bowl of granola w/ milk Percent of Meal Consumed 100% Feeding Ability Independent Urine Appearance Cloudy Sediment Uretheral (Narayanan) Sediment Urine Color Tea Colored Uretheral (Narayanan) Tea Colored Stool Size Small Stool Consistency Formed # Bowel Movements 1 Exam: General: Alert, Awake, No acute Distress HEENT: EOMI, neck supple CV: RRR, 1/6 SM, Pulm: Diminished bilateral bases, no rales/wheezing Abd: soft, nontender, +BS x4, obese Ext: no clubbing/cyanosis, Edema improved Neuro: Alert, no focal deficits, moves all extremities Skin: warm/dry Medical - PN: Obj Da - Labs CBC & Chem 7: 06/20/18 07:10 Labs: Abnormal Lab Results 06/19/18 12:35 Creatinine 2.4 H Calcium 8.5 L Meds: Medications Albuterol/Ipratropium (Duoneb) 3 ml NEB Q4HRT PRN PRN Reason: Dyspnea Artificial Tears (Artificial Tears Ophth Drops) 1 gtt OU 4-6XD PRN PRN Reason: Dry Eye(s) Bisacodyl (Dulcolax) 10 mg MO Q2-3DAYS PRN PRN Reason: Constipation Bupropion HCl (Wellbutrin) 100 mg PO BIDP PRN PRN Reason: ANXIETY/SEDATION Calcium Carbonate/Glycine (Tums) 500 mg PO Q4HP PRN PRN Reason: Indigestion Dextrose (Dextrose 50%) 0 ml IV UD PRN PRN Reason: Hypoglycemia Diagnostic Test (Pha) (Accu-Chek) 1 each FS [facility] Last Admin: 06/19/18 20:43 Dose: 1 each Docusate Sodium (Colace) 100 mg PO TID [facility] Last Admin: 06/19/18 20:45 Dose: 100 mg Famotidine (Pepcid) 20 mg PO HS [facility] Last Admin: 06/19/18 20:44 Dose: 20 mg Finasteride (Proscar) 5 mg PO QDAY [facility] Last Admin: 06/19/18 17:29 Dose: Not Given Fluticasone Propionate (Flonase) 1 spray NS DAILY [facility] Last Admin: 06/19/18 13:20 Dose: Not Given Glucose (Insta-Glucose) 15 gm PO PRN PRN PRN Reason: Hypoglycemia Heparin Sodium (Porcine) (Heparin) 5,000 unit SQ Q12 [facility] Last Admin: 06/19/18 20:44 Dose: 5,000 unit Levofloxacin (Levaquin) 500 mg in 100 mls @ 100 mls/hr IV Q48H [facility] Last Admin: 06/19/18 17:46 Dose: 100 mls/hr Insulin Human Lispro (Humalog) 0 unit SQ ACHS [facility]; Protocol Last Admin: 06/19/18 20:44 Dose: Not Given Lactulose (Cephulac) 10 gm PO BID PRN PRN Reason: Constipation Magnesium Hydroxide (Milk Of Magnesia) 30 ml PO DAILYP PRN PRN Reason: Constipation Last Admin: 06/19/18 17:46 Dose: 30 ml Ondansetron HCl (Zofran) 4 mg IV Q4HP PRN PRN Reason: Nausea And Vomiting Oxycodone HCl (Roxicodone) 5 mg PO Q4H PRN PRN Reason: PAIN LEVEL > 6 Albuterol [Proair (Respiclick] Inhaler) 1 dose INH Q6HP PRN PRN Reason: Shortness Of Breath Polyethylene Glycol (Miralax) 17 gm PO DAILY [facility] Last Admin: 06/19/18 17:50 Dose: 17 gm Sodium Bicarbonate (Sodium Bicarbonate) 650 mg PO BID PRN PRN Reason: Indigestion Sodium Biphosphate/Sodium Phosphate (Fleets Adult) 1 dose MO Q3-4DAYS PRN PRN Reason: Constipation Sodium Chloride (Saline Flush) 10 ml IV Q8 [facility] Last Admin: 06/20/18 05:47 Dose: 10 ml Tamsulosin HCl (Flomax) 0.4 mg PO BID [facility] Last Admin: 06/19/18 20:44 Dose: 0.4 mg Trazodone HCl (Desyrel) 50 mg PO HSP PRN PRN Reason: Insomnia Medical - PN: A/P - Time Spent With Patient Total time spent is greater than 50% in coordination of care (as documented) at patient's floor/unit and/or counseling patient: - Narrative A/P Narrative: A: *Anasarca: Medication noncompliance -much improved s/p initiating of HD, unresponsive to Lasix drip on admit *PAUL on CKD IV: Follows Dr. 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 coli): leukocytosis resolved *PNA: improved *Acute respiratory failure with hypercapnia: 2/2 volume overload, [place] with noncompliance of noninvasive ventilation device -on 2L NC *Morbid obesity: *[place]: notes home cpap does not work well, causing blisters? will refer to pulm as outpatient. *Diabetes: *Hypertension: *Depression/anxiety: *Chronic low back pain *constipation: P: -Nephrology following -HD per Nephro -Strict I's and O's and daily weights -Continue home medications -abx finished course -Compression wraps lower extremities -o2, f/u outpt with pulm -Sliding scale insulin -pt/ot -Continue home medications -bowel regimen -ppx: Heparin awaiting placement to SNF Medical - PN: Qual - VTE Deep Vein Thrombosis/Pulmonary Embolism Present on Admission: No
[2018-06-20] MEDS: INSULIN LISPRO 1 UNIT/0.01 ML UNIT SQ SCH ×4 (08:15→21:19)
[2018-06-20 08:16] LABS: Blood Urea Nitrogen 18 mg/dl (8-23)
[2018-06-20] MEDS: POLYETHYLENE GLYCOL 3350 17 GM PACKET PO SCH (09:10)
[2018-06-20] MEDS: HEPARIN 5,000 UNIT/ML VIAL SQ SCH ×2 (09:10→21:19)
[2018-06-20] MEDS: DOCUSATE SODIUM 100 MG CAPSULE PO SCH ×3 (09:11→21:19)
[2018-06-20] MEDS: TAMSULOSIN 0.4 MG CAPSULE PO SCH ×2 (09:12→21:19)
[2018-06-20] MEDS: FINASTERIDE 5 MG TABLET PO SCH (09:12)
--- NOTE | 2018-06-20 09:45 | Discharge Summary ---
Medical - DS: Prov Patient information: Note initiated : 06/20/18 at 9:42 am Service Date, if different from initiated Date: [] Patient: Maria Isabel He 82 y/o M admitted on 06/18/18 for continued observation. Chief Complaint: [] Date of admission: 06/18/18 16:31 Discharge date: 06/21/18 Primary care physician: Gokul Garcia Consults: 06/18/18 16:52 Consult to Physician [CONS] Routine Comment: Consulting Provider: Megha Martinez Reason For Exam: Physician to Consult Medical - DS: Meds - Discharge Medications Active and Home Medications: Home Medications amlodipine 10 mg tablet 10 mg PO QDAY 05/19/17 [History Confirmed 06/18/18 Last Taken 06/08/18 19:00] finasteride 5 mg tablet 5 mg PO QDAY 05/19/17 [History Confirmed 06/18/18 Last Taken 06/08/18 20:00] Lubricating (PF) OPH OINT OPHTHALMIC 06/17/17 [History Confirmed 06/02/18 Last Taken 06/08/18 08:00] albuterol sulfate 90 mcg/actuation breath activated powder inhaler 1 inh INHALATION Q6H 06/17/17 [History Confirmed 06/18/18 Last Taken 06/04/18 20:00] calcium carbonate 500 mg calcium (1,250 mg) chewable tablet 500 mg PO Q4H PRN tab 06/17/17 [History Confirmed 06/18/18 Last Taken 06/07/18 20:00] clobetasol 1 TOPICAL BID PRN 06/17/17 [History Confirmed 06/02/18 Last Taken 10/15 20:00] dextran 70-hypromellose eye drops 1 drp OPHTHALMIC 4-6XD PRN 06/17/17 [History Confirmed 06/18/18 Last Taken 06/08/18 08:00] docusate sodium 100 mg capsule 100 mg PO TID cap 06/17/17 [History Confirmed Last Taken 06/08/18 08:00] glucose 4 gram chewable tablet 12 g PO ONCE PRN tab 06/17/17 [History Confirmed 06/18/18 Last Taken 05/29/18 15:00] ketoconazole 2 % shampoo 1 applic TOPICAL .Q3W ml 06/17/17 [History Confirmed 06/18/18 Last Taken 05/29/18 20:00] ofloxacin 0.3 % eye drops 1 drp OPHTHALMIC .QH PRN ml 06/17/17 [History Confirmed 06/18/18 Last Taken 05/12/18 20:00] ranitidine 300 mg tablet 300 mg PO BID tab 06/17/17 [History Confirmed Last Taken 06/08/18 20:00] selenium sulfide 2.5 % shampoo 1 applic TOPICAL 3XW 06/17/17 [History Confirmed 06/18/18 Last Taken 05/27/18 20:00] trazodone 100 mg tablet 50 mg PO QHS PRN 06/17/17 [History Confirmed 06/18/18 Last Taken 05/29/18 20:00] fluticasone 50 mcg/actuation nasal spray,suspension 1 spray INTRANASAL QDAY 08/14 [History Confirmed 06/18/18 Last Taken 06/08/18 20:00] oxycodone 5 mg tablet 5 mg PO Q4H PRN tab 09/07/17 [History Confirmed 06/18/18 Last Taken 06/08/18 20:00] gabapentin 300 mg capsule 300 mg PO HS cap 09/16/17 [History Confirmed Last Taken 05/29/18 20:00] tamsulosin 0.4 mg capsule 0.4 mg PO BID cap 09/16/17 [History Confirmed Last Taken 06/08/18 20:00] buspirone PO PRN 12/22/17 [History Confirmed 06/02/18 Last Taken 06/02/18 20:00] bupropion HCl 100 mg tablet 100 mg PO BID PRN 04/22/18 [History Confirmed Last Taken 06/12/18 20:00] sodium bicarbonate 650 mg tablet 650 mg PO BID PRN tab 04/22/18 [History Confirmed 06/18/18 Last Taken 05/29/18 15:00] Medical - DS: Hosp Hospital course: Mr. He is a 82 year old M Interval history: 82yoF with chronic kidney disease stage IV obesity obstructive sleep apnea hypertension diabetes who who had been on 80 of Lasix twice daily. Stopped taking his diuretics about a week ago. Was seen by his outbound sales representative who recommended him come to the hospital for IV diuresis given his anasarca he refused at that time if no risks were explained to him. He did end up going up to his primary care facility [facility] he did get sounds like torsemide which he says "shut him down he did not urinate at all and then he was put on Lasix did not seem to have much response in the past couple days without the diuretic started urinating more per his he put out 1101-day 1100 the next day and 1400 yesterday. He did not want to come down yesterday because of he had some diarrhea which is resolved but agreed to come down today to be admitted for IV diuresis. The diarrhea is essentially resolved sounds like he has been dealing with intermittent constipation diarrhea this year, believes he may have IBS. He has some nausea he has got a chronic cough which is been dry for about 2 weeks he has some nasal congestion. But otherwise no chest pain or shortness of breath. He is very weak he typically is a cane but is been wheelchair-bound this past week. He states his dry weight is around 270 but because of the fluid accumulation he says he is around 300 pounds. He has increased swelling in his lower extremities to his scrotum and abdomen. 06/09 Slept poorly last night. Typically sleeps in a recliner for 15 years. With the bed last night felt was uncomfortable and developed some orthopnea with it. He has some chills and a little bit of nausea with breakfast, he has a mild cough with some clear sputum. No shortness of breath currently in his upright chair no chest pain abdominal pain. A lot of edema still in the legs to the abdomen. Intermittent diarrhea and constipation. 06/10 Little better last night. Does have some nausea and chills. Still very edematous, weak. Mild occasional cough. 06/11 Occasional headache, some shortness of breath. Continued edema. 06/12 CO2 retention last night on pt's as pt noncompliant with his own cpap, changed to our machine for auto-pressures but still was taking it off. HD yesterday with 2L's removed. no new complaints, pt will "to try" bipap for short period of time. no new complaints, denies dyspnea currently, occasional cough. 06/13 Pt seen examined, was confused yesterday after dialysis, but no other comp.laints SERVANDO koroman shows ph 7.35/48/72 Pt still on 2 L oxgyen, CXR shwos left pleural effusion, bibasilar infiltrates making dark urine, by bedside. denies any complaints this AM 06/14 pt seen examined, no acute ovenright events yesterday pm noted that he cannot hear after hd, discussed with Dr Herrera , unlikely HD is causing this, reviewed his ears, some wax in the left year, but no discharge, righ ear tm intact, dull appearing. he has marilyn chr hearing SNL loss, and uses hearing aids, advised to talk with his ENT doctor. he has chr tinnitus, but no acute worsening, no headaches. this am he is doing well, no new complaints HD planned today, xfer to med surg status. 06/15 Pt seen examined, no acute issues, tolerating hd ok, get very fatigued after the process, plan for SNF placement concerned about going home given his weakness needs 2 L oxyen when sleeps otherwise well lungs sound better neg [id number] since admission 06/16 Pt seen examined doing well, labs stable pt deneis any complaints feels breathing is good, says not good, pt looks comfortable, needs oxygen at night due to ifeanyi. Neg 16L since admission, lungs clear plan for D/c today on hold due to SNF not having a bed ready, HD today, and tomorrow(tomorrow would be his scheduled day), anticipate d/c after HD tomorrow if pt remains stable. 06/17 Pt seen examined, no acute overnight issues, pt tolerating po diet well, no chest pain no shortness of breath Some sleep issues which are chronic. Pt undergoing HD Planned d/c today ,but on hold due to non availability of bed at Rehab center. 06/18 No issues overnight. slept well, no new complaints other than constipated. edema improving. 06/19 Given bowel regimen after hemodialysis yesterday with good results. No issues overnight. Lower extremities edema is much improved he now is able to wear his shoes. 06/20 Poor sleep last night. Diarrhea from bowel regimen. No other new issues. have been awaiting placement Discharge diagnosis: Anasarca acute kidney injury on chronic bladder outlet Secondary discharge diagnosis: Bladder outlet obstruction urinary tract infection pneumonia acute respiratory failure with hypercapnia morbid obesity obstructive sleep apnea diabetes hypertension - Time Spent with Patient Total time spent providing and/or coordinating discharge services: Greater than 30 minutes Medical - DS: Exam - Constitutional Vitals: Vital Signs Temp Pulse Resp BP BP Pulse Ox 06/20/18 07:26 98 F 18 170/74 93 06/19/18 19:40 98.2 F 68 16 120/59 97 Intake and Output 06/19/18 06/20/18 06/20/18 21:59 05:59 13:59 Intake Total 860 / 860 100 / 100 Output Total 0 / 0 175 / 175 Balance 860 / 860 -75 / -75 Intake: Oral 860 / 860 100 / 100 Output: Urine Catheter Amount 0 / 0 175 / 175 Other: Meal bowl of granola w/ milk Percent of Meal Consumed 100% Feeding Ability Independent Urine Appearance Cloudy Sediment Uretheral (Wiseman) Sediment Urine Color Tea Colored Uretheral (Wiseman) Tea Colored Stool Size Small Stool Consistency Formed # Bowel Movements 1 Weight 113.035 kg Medical - DS: Data Labs on day of discharge: Labs from last 24 hours 06/20/18 06/19/18 07:10 12:35 Sodium 136 139 Potassium 4.9 4.6 Chloride 97 98 Carbon Dioxide 30 29 Anion Gap 9.0 12.0 BUN 18 9 Creatinine 4.0 H 2.4 H GFR Calculation 13 24 Glucose 109 H 101 Calcium 9.0 8.5 L Medical - DS: A/P - Patient/Caregiver Discharge Instructions Activity: as per physical therapy Diet: Renal/Consistent Carbs Additional Instructions: Referral to see a kettle chipper in 1-2 weeks for adjustment with CPAP - Follow up Plan Follow up with: Megha Martinez MD [Physician] - (Please call to see if you need an office visit with Dr Martinez) Elier Hess MD [Physician] - Tadeo Pittman MD [Physician] - Disposition: Xfer SNF Prognosis: Undetermined Rehab Potential: Critical I certify that the patient requires SNF services: Yes Medical - DS: Qual - VTE Deep Vein Thrombosis/Pulmonary Embolism Present on Admission: No
[2018-06-20] MEDS: FLUTICASONE PROPIONATE SPRAY.NAS NS SCH (11:33)
[2018-06-20] MEDS: FAMOTIDINE 20 MG TABLET PO SCH (21:19)
[2018-06-21] MEDS: 0.9 % SODIUM CHLORIDE 10 ML SYRINGE IV SCH (05:31)
[2018-06-21] MEDS: INSULIN LISPRO 1 UNIT/0.01 ML UNIT SQ SCH (07:49)
[2018-06-21] MEDS: FINASTERIDE 5 MG TABLET PO SCH (09:26)
[2018-06-21] MEDS: DOCUSATE SODIUM 100 MG CAPSULE PO SCH (09:26)
[2018-06-21] MEDS: TAMSULOSIN 0.4 MG CAPSULE PO SCH (09:27)
[2018-06-21] MEDS: HEPARIN 5,000 UNIT/ML VIAL SQ SCH (09:27)
[2018-06-21] MEDS: FLUTICASONE PROPIONATE SPRAY.NAS NS SCH (09:27)
[2018-06-21] MEDS: POLYETHYLENE GLYCOL 3350 17 GM PACKET PO SCH (09:34)
== END 2018-06-21 10:55 | DRG 682 ==
LOC: MEDSUR 16:31
PROVIDERS: ADMIT Internal Medicine Nephrology; ATTEND Internal Medicine